=== PATIENT | female | born 1945 | race Hispanic/Latino ===

== ENCOUNTER 2017-01-10 18:23 | Inpatient (IN) | payer MEDICARE, MEDICAID ==
[2017-01-10] MEDS ORDERED: Sodium Chloride 0.9% 500 ML IV STA ×2 (18:43→20:19)
[2017-01-10] MEDS ORDERED: Morphine 4 mg/ml ISec IVP STA ×2 (18:43→20:18)
[2017-01-10] MEDS ORDERED: Morphine 2 mg/ml ISec IVP STA (18:50)
[2017-01-10 20:00] LABS: BASO # 0.03 K/mm3 (0.0-2.0); BASO % 0.2 % (0.0-3.0); EOS % 0.2 % (1.5-5.0); GRAN # 13.55 (1.4-6.5); GRAN % 81.6 % (50.0-68.0); HEMOGLOBIN 11.7 gm/dL (12.0-16.0); LYMPH # 1.4 (1.2-3.4); LYMPH % 8.2 % (22.0-35.0); MEAN CELL VOLUME 87.6 fL (80.0-105.0); MEAN CORPUSCULAR HGB CONC 33.1 g/dl (31.0-37.0); MEAN PLATELET VOLUME 10.8 fl (7.0-11.0); MONO # 1.6 (0.1-0.6); MONO % 9.8 % (1.0-6.0); PLATELET COUNT 525 10^3/uL (120.0-450.0); RBC 4.04 10^6/uL (3.5-6.1); RED CELL DISTRIBUTION WIDTH 17.7 % (11.5-14.5); WHITE BLOOD COUNT 16.6 10^3/ul (4.5-11.0)
[2017-01-10 20:08] LABS: ALB/GLOB RATIO 1.1 (1.1-1.8); ALBUMIN 3.9 g/dL (3.0-4.8); ALT/SGPT 21 U/L (7-56); AST/SGOT 23 U/L (15-39); BLOOD UREA NITROGEN 34 mg/dL (7-21); CALCIUM 9.4 mg/dL (8.4-10.5); GFR AFRICAN-AMERICAN > 60; GFR NON-AFRICAN AMERICAN > 60; LIPASE 69 U/L (23-300)
[2017-01-10 20:13] LABS: INR 1.06 (0.93-1.08); PARTIAL THROMBOPLASTIN TIME 29.7 Seconds (23.7-30.8); PROTHROMBIN TIME 11.5 Seconds (9.9-11.8)
[2017-01-10 20:19] LABS: B-TYPE NATRIURETIC PEPTIDE 716 pg/mL (0-450)
[2017-01-10 20:23] LABS: TROPONIN I < 0.01 ng/mL
[2017-01-10] MEDS ORDERED: Iohexol 350 MG/100 ML VIAL ONE (20:26)
--- NOTE | 2017-01-10 21:07 | ED PDOC ---
Arrival/HPI <Alexei Soto - Last Filed: 01/10/17 23:34> - General Historian: Patient - History of Present Illness Time/Duration: < week Context: Home <Gerson Caba - Last Filed: 01/19/17 23:10> - General Chief Complaint: Abdominal Pain Time Seen by Provider: 01/10/17 18:28 - History of Present Illness Narrative History of Present Illness (Text): 01/10/17 19:00 This 71 yo female, with pmh tobacco use, presents to this ED c/o epigastric pain x 5 days. Pain worsen x 2 days, which patient has not been able to tolerate not even water. Patient denies trauma, recent surgery, fever, trauma, sob, cp, rectal bleeding, or dizziness. (Gerson Caba) Past Medical History - Provider Review Nursing Documentation Reviewed: Yes - Cardiac Hx Cardiac Disorders: No - Pulmonary Hx Respiratory Disorders: Yes Hx Chronic Obstructive Pulmonary Disease (COPD): Yes - Neurological Hx Neurological Disorder: No - HEENT Hx HEENT Disorder: No - Renal Hx Renal Disorder: No - Endocrine/Metabolic Hx Endocrine Disorders: No - Hematological/Oncological Hx Blood Disorders: No - Integumentary Hx Dermatological Disorder: No - Musculoskeletal/Rheumatological Hx Musculoskeletal Disorders: No - Gastrointestinal Hx Gastrointestinal Disorders: No - Genitourinary/Gynecological Hx Genitourinary Disorders: No - Psychiatric Hx Psychophysiologic Disorder: No Hx Substance Use: No - Surgical History Hx Orthopedic Surgery: Yes <Gerson Caba - Last Filed: 01/19/17 23:10> Family/Social History - Physician Review Nursing Documentation Reviewed: Yes Family/Social History: No Known Family HX Smoking Status: Smoker Currrent Status Unknown Hx Alcohol Use: No Hx Substance Use: No <Gerson Caba - Last Filed: 01/19/17 23:10> Allergies/Home Meds <Alexei Soto - Last Filed: 01/10/17 23:34> <Gerson Caba - Last Filed: 01/19/17 23:10> Allergies/Adverse Reactions: Allergies ketorolac [From Toradol] Allergy (Severe, Verified 01/16/17 08:51) ANAPHYLAXIS Home Medications: Home Meds Medication Instructions Recorded Confirmed Albuterol HFA [Ventolin HFA 90 1 puff INH BID 01/10/17 01/16/17 mcg/actuation (8 g)] Budesonide/Formoterol Fumarate 1 puff INH BID 01/10/17 01/16/17 [Symbicort 160-4.5 Mcg Inhaler] Pregabalin [Lyrica] 150 mg PO BID 01/10/17 01/16/17 Ferrous Sulfate 65 mg PO BID 01/16/17 01/16/17 traMADol [Ultram] 50 mg PO DAILY 01/16/17 01/16/17 Review of Systems - Review of Systems Constitutional: Normal. absent: Fatigue, Weight Change, Fevers Eyes: Normal ENT: Normal Respiratory: Normal Cardiovascular: Normal Gastrointestinal: Abdominal Pain, Nausea, Vomiting Genitourinary Female: Normal Musculoskeletal: Normal Skin: Normal Neurological: Normal Endocrine: Normal Hemo/Lymphatic: Normal Psychiatric: Normal <Gerson Caba - Last Filed: 01/19/17 23:10> Physical Exam Temperature: Afebrile Blood Pressure: Normal Pulse: Regular Respiratory Rate: Normal Appearance: Positive for: Well-Appearing, Non-Toxic, Comfortable Pain Distress: None Mental Status: Positive for: Alert and Oriented X 3 - Systems Exam Head: Present: Atraumatic, Normocephalic Pupils: Present: PERRL Extroacular Muscles: Present: EOMI Mouth: Present: Moist Mucous Membranes Pharnyx: Present: Normal Respiratory/Chest: Present: Clear to Auscultation, Good Air Exchange. No: Respiratory Distress, Accessory Muscle Use Cardiovascular: Present: Regular Rate and Rhythm, Normal S1, S2. No: Murmurs Abdomen: Present: Tenderness (mid abdomen), Normal Bowel Sounds. No: Distention , Peritoneal Signs, Rebound, Guarding, McBurney's Point Tender, Hernias Upper Extremity: Present: Normal Inspection. No: Cyanosis, Edema Lower Extremity: Present: Normal Inspection. No: Edema Neurological: Present: GCS=15, CN II-XII Intact, Speech Normal, Motor Func Grossly Intact, Normal Sensory Function Psychiatric: Present: Alert, Oriented x 3, Normal Insight, Normal Concentration <Alexei Soto - Last Filed: 01/10/17 23:34> Medical Decision Making <Alexei Soto - Last Filed: 01/10/17 23:34> Re-evaluation Time: 23:30 Reassessment Condition: Re-examined, Improving,but remains with symptoms <Gerson Caba P - Last Filed: 01/19/17 23:10> ED Course and Treatment: 01/10/17 22:40 CT Abdomen and Pelvis: FINDINGS: Atelectasis/scarring at the lung bases. Approximately 4 mm nodular pleural- based focus in the right middle lobe. Additional spiculated region and in the right middle lobe, may be secondary to atelectasis/scarring, but followup dedicated imaging is recommended for further evaluation. The liver, spleen, pancreas and right adrenal gland demonstrate no acute abnormalities. No radiopaque gallstones visualized. 1.5 cm left adrenal nodule. The kidneys are symmetric with no evidence of hydronephrosis. Atherosclerosis. Evaluation of bowel limited by paucity of enteric contrast. Small hiatal hernia. The stomach is collapsed, limiting its evaluation, question thickening of the gastric wall. The duodenum is fluid-filled and dilated proximal to crossing between the SMA and aorta. The duodenal wall demonstrates edema and surrounding fluid. Postsurgical changes involving bowel in the pelvis. Fluid noted throughout bowel. Degenerative changes, most significant at L4-S1 including mild spondylolisthesis. Scoliosis. Streak artifact from left hip prosthesis. IMPRESSION: Duodenum is fluid-filled and dilated proximal to crossing between the SMA and aorta. The duodenal wall demonstrates edema and surrounding fluid. Additional details as above. Question enteritis. Cannot exclude underlying lesion. Further evaluation is recommended. 1.5 cm left adrenal nodule. Incompletely evaluated on this study. Followup imaging with dedicated protocol candidate evaluation. Approximately 4 mm nodular pleural-based focus in the right middle lobe. Additional spiculated region and in the right middle lobe, may be secondary to atelectasis/scarring, but followup dedicated imaging is recommended for further evaluation. Please see additional details/findings as above. Dictated and Authenticated by: Dang Dominique MD 01/10/17 23:23 Multiple calls placed to Dr. Peña, no call back. Case discussed with medical record clerk, who is aware and agrees with plan. House doctor paged. 01/10/17 23:[address] Smith, who is aware and agrees with plan. Accepts pt in to hospitalist service. Pt will be admitted to [facility] for abdominal pain and partial bowel obstruction. (Alexei Soto) 01/10/17 21:22 I spoke with residential supervisor regarding distended large bowel, concerning for bowel obstruction, pending ct abdomen pelvis (Gerson Caba) - Lab Interpretations Microbiology Results: Microbiology Results 01/10/17 22:40 Urine Urine Culture - Final Gram Positive Cocci Lab Results: 01/10/17 19:45 01/10/17 19:45 Lab Results 01/10/17 22:40: Urine Color yellow, Urine Appearance Clear, Urine pH 6.5, Ur Specific [place] <= 1.005, Urine Protein Trace H, Urine Glucose (UA) Negative, Urine Ketones Trace H, Urine Blood Negative, Urine Nitrate Negative, Urine Bilirubin Negative, Urine Urobilinogen 0.2, Ur Leukocyte Esterase Negative, Urine RBC TEST NOT PERFORMED, Urine WBC 2 - 5, Ur Epithelial Cells 10 - 12, Amorphous Sediment Trace 01/10/17 20:50: Lactic Acid 0.6 L 01/10/17 19:45: Sodium 130 L, Potassium 3.8, Chloride 99, Carbon Dioxide 19 L, Anion Gap 16, BUN 34 H, Creatinine 0.8, Est GFR ( Amer) > 60, Est GFR ( Non-Af Amer) > 60, Random Glucose 93, Calcium 9.4, Total Bilirubin 0.8, AST 23, ALT 21, Alkaline Phosphatase 91, Lactate Dehydrogenase 434, Total Creatine Kinase 21 L, Troponin I < 0.01, NT-Pro-B Natriuret Pep 716 H, Total Protein 7.3 , Albumin 3.9, Globulin 3.4, Albumin/Globulin Ratio 1.1, Lipase 69 01/10/17 19:45: PT 11.5, INR 1.06, APTT 29.7 01/10/17 19:45: WBC 16.6 H, RBC 4.04, Hgb 11.7 L, Hct 35.4 L, MCV 87.6, MCH 29.0 , MCHC 33.1, RDW 17.7 H, Plt Count 525 H, MPV 10.8, Gran % 81.6 H, Lymph % (Auto ) 8.2 L, [place] % (Auto) 9.8 H, Eos % (Auto) 0.2 L, Baso % (Auto) 0.2, Gran # 13.55 H, Lymph # 1.4, [place] # 1.6 H, Eos # 0.0, Baso # 0.03 - RAD Interpretation Radiology Orders: 01/10/17 18:43 CHEST PORTABLE [RAD] Stat 01/10/17 18:48 ABD & PELVIS IV CONTRAST ONLY [CT] Stat - Medication Orders Current Medication Orders: Discontinued Medications Albuterol/Ipratropium (Duoneb 3 Mg/0.5 Mg (3 Ml) Ud) 3 ml IH Q2 ORI Stop: 01/11/17 06:01 Albuterol/Ipratropium (Duoneb 3 Mg/0.5 Mg (3 Ml) Ud) 3 ml IH Q2 PRN PRN Reason: Shortness of Breath Stop: 01/11/17 06:01 Albuterol/Ipratropium (Duoneb 3 Mg/0.5 Mg (3 Ml) Ud) 3 ml IH [id number] PRN PRN Reason: Shortness of Breath Stop: 01/11/17 06:01 Last Admin: 01/11/17 01:38 Dose: 3 ml Albuterol/Ipratropium (Duoneb 3 Mg/0.5 Mg (3 Ml) Ud) 3 ml IH [id number] ONE Stop: 01/11/17 03:28 Last Admin: 01/11/17 03:47 Dose: 3 ml Barium Sulfate (E-Z-Paque) Confirm Administered Dose 352 g SD .STK-MED ONE Stop: 01/12/17 10:21 Famotidine (Pepcid) 20 mg IVP STAT STA Stop: 01/10/17 18:44 Last Admin: 01/10/17 19:29 Dose: 20 mg Gadodiamide ( Omniscan) Confirm Administered Dose 5,740 mg IV .STK-MED ONE Stop: 01/12/17 18:45 Gadodiamide ( Omniscan) Confirm Administered Dose 5,740 mg IV .STK-MED ONE Stop: 01/13/17 14:12 Home Med (Home Med) 1 unit INH BID ORI Last Admin: 01/14/17 09:56 Dose: 1 unit Home Med (Home Med) 1 unit INH STAT STA Stop: 01/11/17 03:42 Last Admin: 01/11/17 03:47 Dose: 1 unit Hydromorphone HCl (Dilaudid) 0.5 mg IVP Q4H PRN PRN Reason: Abdominal pain Last Admin: 01/14/17 12:13 Dose: 0.5 mg Re-Assess: PREETI Pain Assessment Document 01/14/17 13:13 JOSEPH (Rec: 01/14/17 13:38 JOSEPH [id number]) Pain Reassessment Is this a pain reassessment? Yes Sleep Is patient sleeping during reassessment? No Presence of Pain Presence of Pain No Sodium Chloride (Sodium Chloride 0.9%) 500 mls @ 1,000 mls/hr IV .Q30M STA Stop: 01/10/17 19:12 Last Admin: 01/10/17 19:30 Dose: 1,000 mls/hr Sodium Chloride (Sodium Chloride 0.9%) 500 mls @ 999 mls/hr IV .Q31M STA Stop: 01/10/17 20:49 Last Admin: 01/10/17 20:33 Dose: 999 mls/hr Sodium Chloride (Sodium Chloride 0.9%) 1,000 mls @ 999 mls/hr IV .Q1H1M STA Stop: 01/10/17 22:13 Last Admin: 01/10/17 23:24 Dose: 999 mls/hr Metronidazole (Flagyl) 500 mg in 100 mls @ 100 mls/hr IVPB STAT STA PRN Reason: Protocol Stop: 01/10/17 22:20 Last Admin: 01/10/17 23:24 Dose: 100 mls/hr Piperacillin Sod/Tazobactam Sod (Zosyn 3.375 In Ns 100ml) 100 mls @ 200 mls/hr IVPB STAT STA PRN Reason: Protocol Stop: 01/10/17 21:49 Last Admin: 01/11/17 00:07 Dose: 200 mls/hr Sodium Chloride (Sodium Chloride 0.9%) 1,000 mls @ 100 mls/hr IV .Q10H [facility] Last Admin: 01/11/17 09:31 Dose: 100 mls/hr Piperacillin Sod/Tazobactam Sod (Zosyn 3.375 In Ns 100ml) 100 mls @ 200 mls/hr IVPB Q6 ORI PRN Reason: Protocol Stop: 01/11/17 12:29 Last Admin: 01/11/17 11:45 Dose: 200 mls/hr Potassium Chloride (Potassium Chloride 10 Meq/100 Ml) 10 meq in 100 mls @ 100 mls/hr IVPB Q2H ORI Stop: 01/11/17 12:29 Last Admin: 01/11/17 14:32 Dose: 100 mls/hr Ceftriaxone Sodium (Rocephin 1 Gram Ivpb) 1 gm in 100 mls @ 100 mls/hr IVPB DAILY ORI PRN Reason: Protocol Last Admin: 01/14/17 09:15 Dose: 100 mls/hr Sodium Chloride (Sodium Chloride 0.9%) 1,000 mls @ 50 mls/hr IV .Q20H [facility] Last Admin: 01/12/17 13:34 Dose: 50 mls/hr Potassium Chloride (Potassium Chloride 20 Meq/100 Ml) 20 meq in 100 mls @ 50 mls/hr IVPB Q2H [facility] Stop: 01/12/17 11:59 Last Admin: 01/12/17 13:31 Dose: 50 mls/hr Comments: patiet just back from bowel series Iron Sucrose 100 mg/ Sodium (Chloride) 105 mls @ 210 mls/hr IVPB DAILY [facility] Stop: 01/16/17 10:17 Last Admin: 01/14/17 09:17 Dose: 210 mls/hr Potassium Chloride (Potassium Chloride 20 Meq/100 Ml) 20 meq in 100 mls @ 50 mls/hr IVPB Q2H [facility] Stop: 01/13/17 11:44 Last Admin: 01/13/17 14:29 Dose: 50 mls/hr Iohexol (Omnipaque 350 100 Ml) Confirm Administered Dose 350 mg .ROUTE .STK-MED ONE Stop: 01/10/17 20:27 Morphine Sulfate (Morphine) 2 mg IVP STAT STA Stop: 01/10/17 18:51 Last Admin: 01/10/17 19:30 Dose: 2 mg Morphine Sulfate (Morphine) 4 mg IVP STAT STA Stop: 01/10/17 20:19 Last Admin: 01/10/17 20:34 Dose: 4 mg Ondansetron HCl (Zofran Inj) 4 mg IVP STAT STA Stop: 01/10/17 18:47 Last Admin: 01/10/17 19:29 Dose: 4 mg Ondansetron HCl (Zofran Inj) 4 mg IVP STAT PRN PRN Reason: Nausea/Vomiting Ondansetron HCl (Zofran Inj) 4 mg IVP Q4 PRN PRN Reason: Nausea/Vomiting Stop: 01/11/17 04:01 Ondansetron HCl (Zofran Inj) 4 mg IVP Q4H PRN PRN Reason: Nausea/Vomiting Pantoprazole Sodium (Protonix Inj) 40 mg IVP DAILY [facility] Last Admin: 01/14/17 09:15 Dose: 40 mg Potassium Chloride (K-Dur 20 Meq Er Tab) 40 meq PO ONCE ONE Stop: 01/13/17 13:56 Last Admin: 01/13/17 16:29 Dose: 40 meq Potassium Chloride (K-Dur 20 Meq Er Tab) 20 meq PO ONCE ONE Stop: 01/14/17 13:11 Last Admin: 01/14/17 13:40 Dose: 20 meq Pregabalin (Lyrica) 150 mg PO BID ORI Last Admin: 01/14/17 09:15 Dose: 150 mg Pregabalin (Lyrica) 150 mg PO STAT STA Stop: 01/11/17 03:33 Last Admin: 01/11/17 03:46 Dose: 150 mg - PA / DOCUMENT CONTROL COORDINATOR / Resident Statement JULIETTE has reviewed & agrees with the documentation as recorded. JULIETTE has examined the patient and agrees with the treatment plan. <Alexei Soto - Last Filed: 01/10/17 23:34> Disposition/Present on Arrival - Present on Arrival Any Indicators Present on Arrival: No History of DVT/PE: No History of Uncontrolled Diabetes: No Urinary Catheter: No History of Decub. Ulcer: No History Surgical Site Infection Following: None - Disposition Have Diagnosis and Disposition been Completed?: Yes Disposition Time: 23:33 Patient Plan: Admission <Alexei Soto - Last Filed: 01/10/17 23:34> - Present on Arrival Any Indicators Present on Arrival: No History of DVT/PE: No History of Uncontrolled Diabetes: No Urinary Catheter: No History of Decub. Ulcer: No History Surgical Site Infection Following: None - Disposition Have Diagnosis and Disposition been Completed?: Yes Patient Plan: Admission <Gerson Caba - Last Filed: 01/19/17 23:10> - Disposition Diagnosis: Abdominal pain, Vomiting, Partial bowel obstruction Disposition: HOSPITALIZED Condition: STABLE
[2017-01-10] MEDS ORDERED: Sodium Chloride 0.9% 1,000 ML IV STA (21:13)
[2017-01-10] MEDS ORDERED: Piperacillin/Tazobact 3.375 gm 100 ML IVPB STA (21:20)
[2017-01-10] MEDS ORDERED: metroNIDAZOLE IV 500 mg/100 ml 500 MG/100 ML BAG IVPB STA (21:21)
--- NOTE | 2017-01-10 22:29 | CP.PCM.CON ---
History of Present Illness - History of Present Illness History of Present Illness: SURGERY CONSULT NOTE FOR DR. GARCIA 71F presents with abdominal pain that began on Thursday suddenly. She states she was not doing anything in particular when the pain started. Patient states pain as been continuous but increased in intensity as the days went by. She states she has not been having an appetite since the pain began and feels nausea when she attempts to eat/drink. Admits to 3 bouts of vomiting yesterday which contained but the liquids she drank. Non bilious non bloody. She denies change in bowel movement. Denies subjective fevers or diaphoresis. She has never had this type of pain before. PMH: COPD PSH: left hip replacement, ankle surgery Social: admits to tobacco abuse, denies alcohol and illicit drug use Allergies: Toradol Past Patient History - Past Social History Smoking Status: Smoker Currrent Status Unknown - CARDIAC Hx Cardiac Disorders: No - PULMONARY Hx Respiratory Disorders: Yes Hx Chronic Obstructive Pulmonary Disease (COPD): Yes - NEUROLOGICAL Hx Neurological Disorder: No - HEENT Hx HEENT Problems: No - RENAL Hx Chronic Kidney Disease: No - ENDOCRINE/METABOLIC Hx Endocrine Disorders: No - HEMATOLOGICAL/ONCOLOGICAL Hx Blood Disorders: No - INTEGUMENTARY Hx Dermatological Problems: No - MUSCULOSKELETAL/RHEUMATOLOGICAL Hx Musculoskeletal Disorders: No - GASTROINTESTINAL Hx Gastrointestinal Disorders: No - GENITOURINARY/GYNECOLOGICAL Hx Genitourinary Disorders: No - PSYCHIATRIC Hx Psychophysiologic Disorder: No Hx Substance Use: No - SURGICAL HISTORY Hx Orthopedic Surgery: Yes Meds Allergies/Adverse Reactions: Allergies Allergy/AdvReac Type Severity Reaction Status Date / Time ketorolac [From Toradol] Allergy ANAPHYLAXIS Verified 01/10/17 18:33 Physical Exam - Constitutional Appears: Non-toxic, No Acute Distress - Head Exam Head Exam: ATRAUMATIC - Eye Exam Eye Exam: EOMI, PERRL - ENT Exam ENT Exam: Mucous Membranes Moist - Respiratory Exam Respiratory Exam: Clear to Auscultation Bilateral, NORMAL BREATHING PATTERN - Cardiovascular Exam Cardiovascular Exam: REGULAR RHYTHM, +S1, +S2 - GI/Abdominal Exam GI & Abdominal Exam: Soft, Tenderness (mild tenderness in periumbilical region) . absent: Distended, Firm, Guarding, Rebound, Rigid - Extremities Exam Extremities exam: Negative for: pedal edema, tenderness - Neurological Exam Neurological exam: Alert, Oriented x3 - Psychiatric Exam Psychiatric exam: Normal Affect, Normal Mood - Skin Skin Exam: Dry, Intact, Normal Color, Warm Results - Vital Signs Recent Vital Signs: Last Vital Signs Temp 97.8 F 01/10/17 20:30 Pulse 170 H 01/10/17 20:30 Resp 22 01/10/17 20:30 BP 111/67 01/10/17 20:30 Pulse Ox 98 01/10/17 20:30 - Labs Result Diagrams: 01/11/17 07:00 01/11/17 07:00 Labs: Laboratory Results - last 24 hr 01/10/17 01/10/17 01/10/17 19:45 19:45 19:45 WBC 16.6 H RBC 4.04 Hgb 11.7 L Hct 35.4 L MCV 87.6 MCH 29.0 MCHC 33.1 RDW 17.7 H Plt Count 525 H MPV 10.8 Gran % 81.6 H Lymph % (Auto) 8.2 L [place] % (Auto) 9.8 H Eos % (Auto) 0.2 L Baso % (Auto) 0.2 Gran # 13.55 H Lymph # 1.4 [place] # 1.6 H Eos # 0.0 Baso # 0.03 PT 11.5 INR 1.06 APTT 29.7 Sodium 130 L Potassium 3.8 Chloride 99 Carbon Dioxide 19 L Anion Gap 16 BUN 34 H Creatinine 0.8 Est GFR ( Amer) > 60 Est GFR (Non-Af Amer) > 60 Random Glucose 93 Lactic Acid Calcium 9.4 Total Bilirubin 0.8 AST 23 ALT 21 Alkaline Phosphatase 91 Lactate Dehydrogenase 434 Total Creatine Kinase 21 L Troponin I < 0.01 NT-Pro-B Natriuret Pep 716 H Total Protein 7.3 Albumin 3.9 Globulin 3.4 Albumin/Globulin Ratio 1.1 Lipase 69 01/10/17 20:50 WBC RBC Hgb Hct MCV MCH MCHC RDW Plt Count MPV Gran % Lymph % (Auto) [place] % (Auto) Eos % (Auto) Baso % (Auto) Gran # Lymph # [place] # Eos # Baso # PT INR APTT Sodium Potassium Chloride Carbon Dioxide Anion Gap BUN Creatinine Est GFR ( Amer) Est GFR (Non-Af Amer) Random Glucose Lactic Acid 0.6 L Calcium Total Bilirubin AST ALT Alkaline Phosphatase Lactate Dehydrogenase Total Creatine Kinase Troponin I NT-Pro-B Natriuret Pep Total Protein Albumin Globulin Albumin/Globulin Ratio Lipase Assessment & Plan - Assessment and Plan (Free Text) Assessment: 71F with abdominal pain 2/2 poss SMA syndrome? CT: fluid filled duodenum, dilated duodenum proximal to Aortic/SMA junction Plan: - NPO, pain control, anti-emetic - Antibiotics, IVF - UGI series, Abd US duplex - GI consult, rec EGD, colonscopy Further recs discuss with Attending Ger Cerda, PGY2
--- NOTE | 2017-01-10 22:34 | CT ---
EXAM: CT Abdomen and Pelvis With Intravenous Contrast CLINICAL HISTORY: 71 years old, female; Pain; Abdominal pain; Epigastric; Patient HX: Epigastric pain TECHNIQUE: Axial computed tomography images of the abdomen and pelvis with intravenous contrast. This CT exam was performed using one or more of the following dose reduction techniques: automated exposure control, adjustment of the mA and/or kV according to patient size, and/or use of iterative reconstruction technique. Coronal and sagittal reformatted images were created and reviewed. CONTRAST: 95 mL of OMNIPAQUE 350 administered intravenously. COMPARISON: No relevant prior studies available. FINDINGS: Atelectasis/scarring at the lung bases. Approximately 4 mm nodular pleural-based focus in the right middle lobe. Additional spiculated region and in the right middle lobe, may be secondary to atelectasis/scarring, but followup dedicated imaging is recommended for further evaluation. The liver, spleen, pancreas and right adrenal gland demonstrate no acute abnormalities. No radiopaque gallstones visualized. 1.5 cm left adrenal nodule. The kidneys are symmetric with no evidence of hydronephrosis. Atherosclerosis. Evaluation of bowel limited by paucity of enteric contrast. Small hiatal hernia. The stomach is collapsed, limiting its evaluation, question thickening of the gastric wall. The duodenum is fluid-filled and dilated proximal to crossing between the SMA and aorta. The duodenal wall demonstrates edema and surrounding fluid. Postsurgical changes involving bowel in the pelvis. Fluid noted throughout bowel. Degenerative changes, most significant at L4-S1 including mild spondylolisthesis. Scoliosis. Streak artifact from left hip prosthesis. IMPRESSION: Duodenum is fluid-filled and dilated proximal to crossing between the SMA and aorta. The duodenal wall demonstrates edema and surrounding fluid. Additional details as above. Question enteritis. Cannot exclude underlying lesion. Further evaluation is recommended. 1.5 cm left adrenal nodule. Incompletely evaluated on this study. Followup imaging with dedicated protocol candidate evaluation. Approximately 4 mm nodular pleural-based focus in the right middle lobe. Additional spiculated region and in the right middle lobe, may be secondary to atelectasis/scarring, but followup dedicated imaging is recommended for further evaluation. Please see additional details/findings as above.
[2017-01-10 22:56] LABS: PH,URINE 6.5 (4.7-8.0); URINE BILIRUBIN NEGATIVE (NEGATIVE); URINE BLOOD NEGATIVE (NEGATIVE); URINE GLUCOSE (UA) NEGATIVE (NEGATIVE); URINE LEUKOCYTE ESTERASE NEGATIVE Leu/uL (NEGATIVE); URINE NITRATE NEGATIVE (NEGATIVE); URINE PROTEIN TRACE mg/dL (<30 mg/dL); URINE UROBILINOGEN 0.2 E.U./dL (<1 E.U./dL)
[2017-01-10 22:58] LABS: URINE AMORPHOUS SEDIMENT TRACE; URINE APPEARANCE CLEAR (CLEAR)
[2017-01-11] MEDS: HYDROmorphone 0.5 mg/0.5 ml ISec IVP PRN ×5 (00:47→20:52)
[2017-01-11] MEDS: Sodium Chloride 0.9% 1,000 ML IV SCH ×3 (00:48→17:56)
[2017-01-11 01:03] VITALS: BMI 17.6
[2017-01-11] MEDS ORDERED: Albuterol-Ipratrop 3 mg / 0.5 (3 ml) UD IH PRN ×2 (01:32)
[2017-01-11] MEDS ORDERED: Albuterol-Ipratrop 3 mg / 0.5 (3 ml) UD IH SCH (02:00)
[2017-01-11] MEDS ORDERED: Albuterol-Ipratrop 3 mg / 0.5 (3 ml) UD IH ONE (03:27)
[2017-01-11] MEDS ORDERED: Home Med 1 UNIT INH STA (03:37)
[2017-01-11] MEDS ORDERED: SYMBICORT INH STA (03:41)
[2017-01-11] MEDS: Piperacillin/Tazobact 3.375 gm 100 ML IVPB SCH ×2 (05:18→11:45)
--- NOTE | 2017-01-11 05:59 | CP.PCM.HP ---
<NU MARIA - Last Filed: 01/11/17 06:17> History of Present Illness - History of Present Illness History of Present Illness: Nu Maria DO PGY1 - Internal Medicine Progress Note - Night Float CC: Abdominal pain HPI: 71 Yo F with PMH of COPD and TIA presents [place] [facility] complaining of abdominal pain for the past 5 days, significantly worse since yesterday, now 10/ 10 in severity. Pain is constant, sharp and stabbing in character, nonradiating , associated with nausea, vomiting once yesterday, anorexia for the past three days. She tried advil for the pain, which did not help. She also admits one episode of black diarrhea which she noted on her bed upon waking up two days ago. She denies any prior hematochezia, hematemesis, or melena. She denies CP, SOB, cough, F/C, constipation. She admits to 46 lbs unintentional weight loss in the past year. Of note, she reportedly had a colonoscopy one year ago for abdominal pain, and it was negative for any lesions, as per patient. PMH: COPD, TIA PSH: R ankle ORIF, L hip replacement, Appendectomy in childhood Meds: Reviewed Soc: Tobacco, smoked 1-2 cigarettes daily for the past 52 years, denies EtOH, denies illicits FHx: None Allergies: Toradol Present on Admission - Present on Admission Any Indicators Present on Admission: No Review of Systems - Constitutional Constitutional: Anorexia, Weight Loss - EENT Eyes: absent: Blurred Vision, Change in Vision Ears: absent: Decreased Hearing, Ear Pain Nose/Mouth/Throat: absent: Epistaxis, Nasal Congestion - Cardiovascular Cardiovascular: absent: Chest Pain, Edema, Palpitations - Respiratory Respiratory: absent: Cough, Dyspnea, Hemoptysis - Gastrointestinal Gastrointestinal: As Per HPI - Genitourinary Genitourinary: absent: Dysuria, Urinary Frequency - Musculoskeletal Musculoskeletal: absent: Arthralgias, Myalgias - Integumentary Integumentary: absent: Rash - Neurological Neurological: absent: Abnormal Speech, Behavioral Changes, Burning Sensations - Hematologic/Lymphatic Hematologic: absent: Easy Bleeding, Easy Bruising Past Patient History - Past Social History Smoking Status: Current Some Days Smoker - CARDIAC Hx Cardiac Disorders: No - PULMONARY Hx Respiratory Disorders: Yes Hx Chronic Obstructive Pulmonary Disease (COPD): Yes - NEUROLOGICAL Hx Neurological Disorder: Yes Hx Transient Ischemic Attacks (TIA): Yes - HEENT Hx HEENT Problems: No - RENAL Hx Chronic Kidney Disease: No - ENDOCRINE/METABOLIC Hx Endocrine Disorders: No - HEMATOLOGICAL/ONCOLOGICAL Hx Blood Disorders: No - INTEGUMENTARY Hx Dermatological Problems: No - MUSCULOSKELETAL/RHEUMATOLOGICAL Hx Musculoskeletal Disorders: Yes Hx Fractures: Yes (left hip, right ankle) Hx Unsteady Gait: Yes - GASTROINTESTINAL Hx Gastrointestinal Disorders: No - GENITOURINARY/GYNECOLOGICAL Hx Genitourinary Disorders: No - PSYCHIATRIC Hx Psychophysiologic Disorder: No - SURGICAL HISTORY Hx Surgeries: Yes Hx Orthopedic Surgery: Yes (right ankle repair, left hip orif with hardware) Meds Allergies/Adverse Reactions: Allergies Allergy/AdvReac Type Severity Reaction Status Date / Time ketorolac [From Toradol] Allergy Severe ANAPHYLAXIS Verified 01/16/17 08:51 Physical Exam - Constitutional Appears: Non-toxic, No Acute Distress - Head Exam Head Exam: ATRAUMATIC, NORMOCEPHALIC - Eye Exam Eye Exam: EOMI, Normal appearance - ENT Exam ENT Exam: Mucous Membranes Moist - Neck Exam Neck exam: Positive for: Normal Inspection. Negative for: Lymphadenopathy, Meningismus - Respiratory Exam Respiratory Exam: Clear to Auscultation Bilateral. absent: Rales, Rhonchi, Wheezes - Cardiovascular Exam Cardiovascular Exam: RRR, +S1, +S2 - GI/Abdominal Exam GI & Abdominal Exam: Diminished Bowel Sounds, Guarding (epigastric), Rebound ( epigastric), Tenderness (epigastric) - Extremities Exam Extremities exam: Positive for: normal inspection. Negative for: pedal edema, tenderness - Back Exam Back exam: NORMAL INSPECTION - Neurological Exam Neurological exam: Alert, Oriented x3 - Psychiatric Exam Psychiatric exam: Normal Affect, Normal Mood - Skin Skin Exam: Dry, Intact Results - Vital Signs Recent Vital Signs: Last Vital Signs Temp 98.1 F 01/11/17 00:52 Pulse 74 01/11/17 01:39 Resp 18 01/11/17 00:52 BP 116/61 01/11/17 00:52 Pulse Ox 98 01/11/17 00:45 - Labs Result Diagrams: 01/10/17 19:45 01/10/17 19:45 Assessment & Plan - Assessment and Plan (Free Text) Assessment: 71 Yo F with PMH of COPD and TIA presents to [facility] complaining of abdominal pain for the past 5 days, significantly worse since yesterday, now 10/[address] significant for duodenitis vs SMA syndrome Plan: 1. Abdominal pain - 2/2 duodenitis vs SMA syndrome vs intraabdominal infection - CT abdomen and pelvis significant for fluid-filled and dilated duodenum proximal to crossing between the SMA and aorta, with edema in the johnson and surrounding fluid, cannot exclude underlying lesion - Consult surgery (Alexi), will keep NPO except meds until further evaluation - Consult GI (Zelinski) - Start dilaudid 0.5mg Q4H PRN for pain - Start Zosyn for presumed intraabdominal infection - Start Zofran PRN for nausea - Start NS @ 100ml/hr - Recheck CBC, CMP in AM 2. Hx COPD - Resume home meds GI and DVT ppx - Protonix 40mg IVP, SCD Patient seen, reviewed, and discussed with senior resident Dr. Oseguera PGY2 and attending Dr. Smith <Zahira Smith - Last Filed: 01/17/17 03:52> Results - Vital Signs Recent Vital Signs: Last Vital Signs Temp 98.5 F 01/14/17 06:00 Pulse 85 01/14/17 06:00 Resp 18 01/14/17 06:00 BP 136/63 01/14/17 06:00 Pulse Ox 94 L 01/14/17 06:00 - Labs Result Diagrams: 01/14/17 06:15 01/14/17 06:15 Attending/Attestation - Attestation I have personally seen and examined this patient.: Yes I have fully participated in the care of the patient.: Yes I have reviewed all pertinent clinical information: Yes Notes (Text): 01/17/17 03:51 Agree with history , physical examination , assessment and plan.
[2017-01-11 08:09] LABS: ALB/GLOB RATIO 1.1 (1.1-1.8); ALBUMIN 3.6 g/dL (3.0-4.8); ALT/SGPT 18 U/L (7-56); AST/SGOT 18 U/L (15-39); BLOOD UREA NITROGEN 25 mg/dL (7-21); CALCIUM 8.5 mg/dL (8.4-10.5); GFR AFRICAN-AMERICAN > 60; GFR NON-AFRICAN AMERICAN > 60
[2017-01-11 08:19] LABS: BASO # 0.04 K/mm3 (0.0-2.0); BASO % 0.3 % (0.0-3.0); EOS % 0.2 % (1.5-5.0); GRAN # 10.83 (1.4-6.5); GRAN % 81.3 % (50.0-68.0); HEMOGLOBIN 9.8 gm/dL (12.0-16.0); LYMPH # 1.4 (1.2-3.4); LYMPH % 10.2 % (22.0-35.0); MEAN CELL VOLUME 90.9 fL (80.0-105.0); MEAN CORPUSCULAR HEMOGLOBIN 28.7 pg (25.0-35.0); MEAN CORPUSCULAR HGB CONC 31.5 g/dl (31.0-37.0); MEAN PLATELET VOLUME 10.4 fl (7.0-11.0); MONO # 1.1 (0.1-0.6); PLATELET COUNT 524 10^3/uL (120.0-450.0); RBC 3.42 10^6/uL (3.5-6.1); RED CELL DISTRIBUTION WIDTH 18.3 % (11.5-14.5); WHITE BLOOD COUNT 13.3 10^3/ul (4.5-11.0)
--- NOTE | 2017-01-11 08:24 | CP.PCM.PN ---
Subjective - Date & Time of Evaluation Date of Evaluation: 01/11/17 Time of Evaluation: 06:30 - Subjective Subjective: General Surgery Dr. Barrios Pt S&E @bedside. NAEO. sitting up in bed. denies abd pain, N/V, F/C. pt requesting to shower. pt wants to go home. Objective - Vital Signs/Intake and Output Vital Signs (last 24 hours): Temp Pulse Resp BP Pulse Ox 97.7 F 70 18 117/61 97 01/11/17 07:55 01/11/17 07:55 01/11/17 07:55 01/11/17 07:55 01/11/17 07:55 Intake and Output: 01/11/17 01/11/17 06:59 18:59 Intake Total 800 0 Balance 800 0 - Medications Medications: Current Medications Home Med (Home Med) 1 unit INH BID [facility] Hydromorphone HCl (Dilaudid) 0.5 mg IVP Q4H PRN PRN Reason: Abdominal pain Last Admin: 01/11/17 05:30 Dose: 0.5 mg Sodium Chloride (Sodium Chloride 0.9%) 1,000 mls @ 100 mls/hr IV .Q10H [facility] Last Admin: 01/11/17 00:48 Dose: 100 mls/hr Piperacillin Sod/Tazobactam Sod (Zosyn 3.375 In Ns 100ml) 100 mls @ 200 mls/hr IVPB Q6 [facility] PRN Reason: Protocol Stop: 01/11/17 12:29 Last Admin: 01/11/17 05:18 Dose: 200 mls/hr Pantoprazole Sodium (Protonix Inj) 40 mg IVP DAILY [facility] Pregabalin (Lyrica) 150 mg PO BID [facility] - Labs Labs: PT 11.5 Seconds (9.9-11.8) 01/10/17 19:45 INR 1.06 (0.93-1.08) 01/10/17 19:45 APTT 29.7 Seconds (23.7-30.8) 01/10/17 19:45 - Constitutional Appears: Non-toxic, In Acute Distress - Head Exam Head Exam: NORMAL INSPECTION - Eye Exam Eye Exam: Normal appearance - ENT Exam ENT Exam: Mucous Membranes Moist - Respiratory Exam Respiratory Exam: NORMAL BREATHING PATTERN. absent: Accessory Muscle Use, Respiratory Distress - Cardiovascular Exam Cardiovascular Exam: absent: Bradycardia, Tachycardia - GI/Abdominal Exam GI & Abdominal Exam: Soft. absent: Distended, Tenderness - Extremities Exam Extremities Exam: Normal Inspection - Neurological Exam Neurological Exam: Alert, Awake, Oriented x3 - Psychiatric Exam Psychiatric exam: Normal Affect, Normal Mood - Skin Skin Exam: Dry, Intact, Normal Color, Warm Assessment and Plan - Assessment and Plan (Free Text) Assessment: 71 y/o F w/ abd pain - possible SMA syndrome - recommend Barium swallow vs Abd duplex US - pain management - f/u GI recs Pt discussed w/ Dr. Alexi Castañeda DO PGY2
[2017-01-11] MEDS: SYMBICORT INH SCH ×2 (10:19→17:53)
--- NOTE | 2017-01-11 10:26 | CARD ---
APPROVED REPORT EKG Measurement Heart [id number] <Conclusion> Atrial flutter with variable AV block Minimal voltage criteria for LVH, may be normal variant Nonspecific ST and T wave abnormality Abnormal ECG
--- NOTE | 2017-01-11 13:32 | RAD ---
HISTORY: epigastric pain COMPARISON: Comparison chest dated 12/04/2016 correlation also made with CT scan abdomen pelvis performed 01/10/2017 which imaged the lung bases in 3 planes FINDINGS: LUNGS: Mild hyperinflation; rule out underlying out changes of chronic emphysema or COPD. No focal consolidation. . Subpleural nodule right middle lobe poorly delineated on this study as compared to high-resolution CT scan PLEURA: Biapical pleural thickening associated with what appear to represent some minor dystrophic type calcifications. No pneumothorax apparent. CARDIOVASCULAR: Heart size normal. OSSEOUS STRUCTURES: There is a dextroscoliosis centered in the lower thoracic region compensatory for a levoscoliosis in the lumbar region. VISUALIZED UPPER ABDOMEN: Normal. OTHER FINDINGS: None. IMPRESSION: Hyperinflation. Rule out chronic changes of emphysema or COPD. Biapical pleural thickening associated with the some dystrophic type calcifications.
--- NOTE | 2017-01-11 15:24 | CON ---
DATE: 01/11/2017 HISTORY OF PRESENT ILLNESS: I examined Ms. Spencer this morning. She is a 71-year-old white female with past medical history of COPD, TIA presented with acute onset of abdominal pain roughly 5 days ago, which increase in intensity over the past several days. The patient denies hematemesis or rectal bleeding. Pain is constant. It can be associated with nausea and vomiting periodically. She did notice an episode of diarrhea for roughly a day or so several days ago. This has not recurred. The patient denied upper respiratory infections or viral or fluid type of illness. She has not had any recent GI surgery. Surgery in the past included ankle, as well as hip, and appendectomy. PHYSICAL EXAMINATION VITAL SIGNS: I reviewed this patient's vital signs. HEENT: Signification for dry mouth. LUNGS: Decreased breath sounds bilaterally. HEART: Regular rhythm. ABDOMEN: Mildly distended. She is tender in epigastric area. Periumbilical area feels very full and degree of pain elicited roughly 7-8/10. There is minimal discomfort in the left lower quadrant, as well as right lower quadrant. LABORATORY DATA: I reviewed this patient's laboratory data. White count 16,000 yesterday with an H and H of 11 and 35. Chemistry indicates a BNP of 716. BUN and creatinine of 34/0.8. I reviewed the CT report as well as CT images. Findings indicate abnormality in the lung. There is a small hiatal hernia. An obstruction is noted in the area of the small bowel. ASSESSMENT AND PLAN: This is a 71-year-old white female with complaints of abdominal pain. At least based on CT criteria probably secondary to small bowel obstructions, possibly adhesion related. I think it would be kind of unlikely to have inflammatory bowel presentation at 71 with this type of picture although possible. At this point in time, we suggest serial imaging to clarify decompression of the small bowel obstruction followed by surgery is recommended. At the current time point, the patient is on analgesics, as well as antibiotic therapy, metronidazole. I think this is adequate at the current time. She will be followed up by the hospitalist as well as house staff this morning. Clarification of this picture as well as the reason for the elevated BNP is pending. Abad Malave DO, PhD SHARA
[2017-01-11] MEDS: cefTRIAXone 1 gm 1 GM/100 ML BAG IVPB SCH (17:59)
[2017-01-12] MEDS: HYDROmorphone 0.5 mg/0.5 ml ISec IVP PRN ×5 (01:07→19:37)
[2017-01-12 07:14] LABS: ALB/GLOB RATIO 1.1 (1.1-1.8); ALBUMIN 2.9 g/dL (3.0-4.8); ALT/SGPT 18 U/L (7-56); AST/SGOT 19 U/L (15-39); BLOOD UREA NITROGEN 14 mg/dL (7-21); CALCIUM 8.1 mg/dL (8.4-10.5); GFR AFRICAN-AMERICAN > 60; GFR NON-AFRICAN AMERICAN > 60
[2017-01-12 07:32] LABS: BASO # 0.07 K/mm3 (0.0-2.0); BASO % 0.9 % (0.0-3.0); EOS # 0.3 (0.0-0.7); EOS % 3.4 % (1.5-5.0); GRAN # 5.29 (1.4-6.5); GRAN % 69.6 % (50.0-68.0); LYMPH # 1.1 (1.2-3.4); LYMPH % 13.9 % (22.0-35.0); MEAN CORPUSCULAR HEMOGLOBIN 28.6 pg (25.0-35.0); MEAN CORPUSCULAR HGB CONC 31.4 g/dl (31.0-37.0); MEAN PLATELET VOLUME 10.2 fl (7.0-11.0); MONO # 0.9 (0.1-0.6); MONO % 12.2 % (1.0-6.0); PLATELET COUNT 457 10^3/uL (120.0-450.0); RBC 2.66 10^6/uL (3.5-6.1); RED CELL DISTRIBUTION WIDTH 18.2 % (11.5-14.5); WHITE BLOOD COUNT 7.6 10^3/ul (4.5-11.0)
[2017-01-12 07:40] LABS: HEMOGLOBIN 7.6 gm/dL (12.0-16.0)
[2017-01-12] MEDS ORDERED: Ferric Sodium Gluconat Complex 62.5 mg/5 ml Vial IVPB SCH (10:00)
--- NOTE | 2017-01-12 10:09 | CP.PCM.PN ---
Subjective - Date & Time of Evaluation Date of Evaluation: 01/12/17 Time of Evaluation: 10:05 - Subjective Subjective: General Surgery Progress Note Resident: Tyra Attending: Alexi ALFONSO Patient was seen and examined at bedside. Doing well, no complaints at this time. -Flatus. +Liquid BM with no blood. Tolerating diet. -N/V/CP/SOB. Objective - Vital Signs/Intake and Output Vital Signs (last 24 hours): Temp Pulse Resp BP Pulse Ox 98 F 63 20 122/60 100 01/12/17 08:47 01/12/17 08:47 01/12/17 08:47 01/12/17 08:47 01/12/17 08:47 Intake and Output: 01/12/17 01/12/17 06:59 18:59 Intake Total 360 Balance 360 - Medications Medications: Current Medications Ferric Sodium Gluconate Complex (Ferrlecit) 125 mg IVPB DAILY [facility] Stop: 01/20/17 10:01 Home Med (Home Med) 1 unit INH BID [facility] Last Admin: 01/11/17 17:53 Dose: 1 unit Hydromorphone HCl (Dilaudid) 0.5 mg IVP Q4H PRN PRN Reason: Abdominal pain Last Admin: 01/12/17 08:57 Dose: 0.5 mg Ceftriaxone Sodium (Rocephin 1 Gram Ivpb) 1 gm in 100 mls @ 100 mls/hr IVPB DAILY [facility] PRN Reason: Protocol Last Admin: 01/11/17 17:59 Dose: 100 mls/hr Sodium Chloride (Sodium Chloride 0.9%) 1,000 mls @ 50 mls/hr IV .Q20H [facility] Last Admin: 01/11/17 17:56 Dose: 50 mls/hr Potassium Chloride (Potassium Chloride 20 Meq/100 Ml) 20 meq in 100 mls @ 50 mls/hr IVPB Q2H [facility] Stop: 01/12/17 11:59 Last Admin: 01/12/17 08:56 Dose: 50 mls/hr Ondansetron HCl (Zofran Inj) 4 mg IVP Q4H PRN PRN Reason: Nausea/Vomiting Pantoprazole Sodium (Protonix Inj) 40 mg IVP DAILY [facility] Last Admin: 01/11/17 09:27 Dose: 40 mg Pregabalin (Lyrica) 150 mg PO BID [facility] Last Admin: 01/11/17 17:53 Dose: 150 mg - Labs Labs: 01/12/17 06:00 01/12/17 06:00 PT 11.5 Seconds (9.9-11.8) 01/10/17 19:45 INR 1.06 (0.93-1.08) 01/10/17 19:45 APTT 29.7 Seconds (23.7-30.8) 01/10/17 19:45 - Constitutional Appears: No Acute Distress - Head Exam Head Exam: NORMAL INSPECTION - Eye Exam Eye Exam: EOMI, Normal appearance - ENT Exam ENT Exam: Mucous Membranes Moist - Respiratory Exam Respiratory Exam: Clear to Ausculation Bilateral - Cardiovascular Exam Cardiovascular Exam: REGULAR RHYTHM - GI/Abdominal Exam GI & Abdominal Exam: Soft. absent: Distended, Tenderness - Neurological Exam Neurological Exam: Alert, Awake Assessment and Plan - Assessment and Plan (Free Text) Assessment: 71 y/o WF with possible SMA Syndrome. * IV Iron for Anemia * Upper GI series today * Abdominal Duplex US today * Pain: Dilaudid * IVF: NS @ 50 * Antibiotics per medicine * Will discuss with Dr. Alexi Mary DO PGY-1
[2017-01-12] MEDS ORDERED: Barium Sulfate for Susp 96% w/w 176g Bottle PR ONE (10:20)
--- NOTE | 2017-01-12 11:20 | US ---
PROCEDURE: Duplex ultrasound of the mesenteric arteries. HISTORY: Abdominal pain. Evaluate for mesenteric ischemia. PHYSICIAN(S): Saman Murillo MD. TECHNIQUE: Duplex sonography with color-flow Doppler was used to evaluate limited segments of the abdominal aorta and proximal segments of the mesenteric arteries. FINDINGS: There appears to be a common origin to the celiac axis and SMA. Velocities at the celiac origin are borderline elevated, 223 cm/second. Velocities at the SMA origin are elevated, 3 in 25 cm/second. This is consistent with 50-99 percent proximal SMA stenosis. The VALORIE origin is patent with relatively normal velocities. IMPRESSION: 1. 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 2. Borderline elevation of the proximal celiac axis. 3. Patent VALORIE. 4. If clinical symptoms warrant, further evaluation with CTA, MRA, or conventional arteriography can be considered.
--- NOTE | 2017-01-12 13:31 | RAD ---
PROCEDURE: Upper GI and small bowel HISTORY: duodenal dilation, r/o SMA syndrome COMPARISON: TECHNIQUE: Single contrast FINDINGS: The esophagus and stomach are unremarkable. The duodenal bulb is normal in size. There is moderate dilatation of the 2nd and 3rd part of the duodenum measuring up to a 5.9 cm in diameter. There is some narrowing in the area of the ligament of Treitz. There is no obstruction to flow. The proximal jejunum is normal in caliber. Contrast reaches the colon within 80 minutes. IMPRESSION: Mildly dilated 2nd and 3rd part of the duodenum. No obstruction to flow. No intrinsic lesion
[2017-01-12] MEDS: SYMBICORT INH SCH ×2 (13:34→17:49)
[2017-01-12] MEDS: Sodium Chloride 0.9% 1,000 ML IV SCH (13:34)
[2017-01-12] MEDS: cefTRIAXone 1 gm 1 GM/100 ML BAG IVPB SCH (13:44)
--- NOTE | 2017-01-12 16:36 | CP.PCM.PN ---
Objective - Vital Signs/Intake and Output Vital Signs (last 24 hours): Temp Pulse Resp BP Pulse Ox 98 F 63 20 122/60 100 01/12/17 08:47 01/12/17 08:47 01/12/17 08:47 01/12/17 08:47 01/12/17 08:47 Intake and Output: 01/12/17 01/12/17 06:59 18:59 Intake Total 360 Balance 360 - Medications Medications: Current Medications Home Med (Home Med) 1 unit INH BID [facility] Last Admin: 01/12/17 13:34 Dose: Not Given Hydromorphone HCl (Dilaudid) 0.5 mg IVP Q4H PRN PRN Reason: Abdominal pain Last Admin: 01/12/17 13:43 Dose: 0.5 mg Ceftriaxone Sodium (Rocephin 1 Gram Ivpb) 1 gm in 100 mls @ 100 mls/hr IVPB DAILY [facility] PRN Reason: Protocol Last Admin: 01/12/17 13:44 Dose: 100 mls/hr Iron Sucrose 100 mg/ Sodium (Chloride) 105 mls @ 210 mls/hr IVPB DAILY [facility] Stop: 01/16/17 10:17 Last Admin: 01/12/17 13:35 Dose: 210 mls/hr Ondansetron HCl (Zofran Inj) 4 mg IVP Q4H PRN PRN Reason: Nausea/Vomiting Pantoprazole Sodium (Protonix Inj) 40 mg IVP DAILY [facility] Last Admin: 01/12/17 13:44 Dose: 40 mg Pregabalin (Lyrica) 150 mg PO BID [facility] Last Admin: 01/12/17 13:33 Dose: Not Given - Labs Labs: 01/12/17 06:00 01/12/17 06:00 PT 11.5 Seconds (9.9-11.8) 01/10/17 19:45 INR 1.06 (0.93-1.08) 01/10/17 19:45 APTT 29.7 Seconds (23.7-30.8) 01/10/17 19:45
--- NOTE | 2017-01-12 17:31 | CP.PCM.PN ---
<Yanet Rosario - Last Filed: 01/12/17 17:27> Subjective - Date & Time of Evaluation Date of Evaluation: 01/12/17 Time of Evaluation: 17:28 - Subjective Subjective: Patient has been S/E. No overnight events reported. Patient stated that her abdominal pain has improved a lot. She is tolerating her full liquid diet, and states that she wants to eat more Objective - Vital Signs/Intake and Output Vital Signs (last 24 hours): Temp Pulse Resp BP Pulse Ox 98 F 63 20 122/60 100 01/12/17 08:47 01/12/17 08:47 01/12/17 08:47 01/12/17 08:47 01/12/17 08:47 Intake and Output: 01/12/17 01/12/17 06:59 18:59 Intake Total 360 Balance 360 - Medications Medications: Current Medications Home Med (Home Med) 1 unit INH BID [facility] Last Admin: 01/12/17 13:34 Dose: Not Given Hydromorphone HCl (Dilaudid) 0.5 mg IVP Q4H PRN PRN Reason: Abdominal pain Last Admin: 01/12/17 13:43 Dose: 0.5 mg Ceftriaxone Sodium (Rocephin 1 Gram Ivpb) 1 gm in 100 mls @ 100 mls/hr IVPB DAILY [facility] PRN Reason: Protocol Last Admin: 01/12/17 13:44 Dose: 100 mls/hr Iron Sucrose 100 mg/ Sodium (Chloride) 105 mls @ 210 mls/hr IVPB DAILY [facility] Stop: 01/16/17 10:17 Last Admin: 01/12/17 13:35 Dose: 210 mls/hr Ondansetron HCl (Zofran Inj) 4 mg IVP Q4H PRN PRN Reason: Nausea/Vomiting Pantoprazole Sodium (Protonix Inj) 40 mg IVP DAILY [facility] Last Admin: 01/12/17 13:44 Dose: 40 mg Pregabalin (Lyrica) 150 mg PO BID [facility] Last Admin: 01/12/17 13:33 Dose: Not Given - Labs Labs: 01/12/17 06:00 01/12/17 06:00 PT 11.5 Seconds (9.9-11.8) 01/10/17 19:45 INR 1.06 (0.93-1.08) 01/10/17 19:45 APTT 29.7 Seconds (23.7-30.8) 01/10/17 19:45 - Constitutional Appears: Well, Non-toxic, No Acute Distress - Head Exam Head Exam: ATRAUMATIC, NORMOCEPHALIC - Respiratory Exam Respiratory Exam: Clear to Ausculation Bilateral, NORMAL BREATHING PATTERN. absent: Rales, Rhonchi, Wheezes - Cardiovascular Exam Cardiovascular Exam: RRR, +S1, +S2 - GI/Abdominal Exam GI & Abdominal Exam: Soft, Tenderness Additional comments: Abdomen only slightly tender to palpations. - Extremities Exam Extremities Exam: absent: Pedal Edema - Neurological Exam Neurological Exam: Alert - Psychiatric Exam Psychiatric exam: Anxious Assessment and Plan - Assessment and Plan (Free Text) Assessment: 71 year old with PMH of COPD admitted for possible SMA Syndrome. CT abd and pelvis showed duodenitis and dilated duodenum proximal to SMA and Aorta. Abd US showed 50-99% stenosis of SMA Plan: 1. Abdominal Pain 2/2 Possible SMA syndrome -dilaudid 0.5mg Q4H PRN for pain -Gi consulted recs appreciated -Surgery Consulted Recs appreciated. -Rocephin -Zofran PRN -Lyrica -ordered MRA -Adv. to regular Diet 2. Normocytic Anemia - Repeat CBC w/ diff in morning -Iron, Ferritin, TIBC -hgb/HCt tonight 3.COPD -Duonebs <Mckenzie Bliss - Last Filed: 01/12/17 21:53> Objective - Vital Signs/Intake and Output Vital Signs (last 24 hours): Temp Pulse Resp BP Pulse Ox 98.6 F 74 19 112/63 100 01/12/17 17:29 01/12/17 17:29 01/12/17 17:29 01/12/17 17:29 01/12/17 17:29 - Medications Medications: Current Medications Home Med (Home Med) 1 unit INH BID [facility] Last Admin: 01/12/17 17:49 Dose: 1 unit Hydromorphone HCl (Dilaudid) 0.5 mg IVP Q4H PRN PRN Reason: Abdominal pain Last Admin: 01/12/17 19:37 Dose: 0.5 mg Ceftriaxone Sodium (Rocephin 1 Gram Ivpb) 1 gm in 100 mls @ 100 mls/hr IVPB DAILY [facility] PRN Reason: Protocol Last Admin: 01/12/17 13:44 Dose: 100 mls/hr Iron Sucrose 100 mg/ Sodium (Chloride) 105 mls @ 210 mls/hr IVPB DAILY [facility] Stop: 01/16/17 10:17 Last Admin: 01/12/17 13:35 Dose: 210 mls/hr Ondansetron HCl (Zofran Inj) 4 mg IVP Q4H PRN PRN Reason: Nausea/Vomiting Pantoprazole Sodium (Protonix Inj) 40 mg IVP DAILY [facility] Last Admin: 01/12/17 13:44 Dose: 40 mg Pregabalin (Lyrica) 150 mg PO BID [facility] Last Admin: 01/12/17 17:49 Dose: 150 mg - Labs Labs: 01/12/17 20:56 01/12/17 06:00 PT 11.5 Seconds (9.9-11.8) 01/10/17 19:45 INR 1.06 (0.93-1.08) 01/10/17 19:45 APTT 29.7 Seconds (23.7-30.8) 01/10/17 19:45 Attending/Attestation - Attestation I have personally seen and examined this patient.: Yes I have fully participated in the care of the patient.: Yes I have reviewed all pertinent clinical information, including history, physical exam and plan: Yes Notes (Text): 01/12/17 21:48 71 year old female who presented with complaint of abdominal pain. CT abd/ pelvis showed possible duodenitis or SMA syndrome. This was followed by [facility] which showed dilated duodenum without obstruction and abdominal ultrasound which showed SMA 50-99% stenosis. However she reports her abdominal pain has much improved. Her diet was advanced which she is tolerated. GI and surgery are following the patient. MRA abdomen is ordered for follow up. She had leukocytosis which has improved. She is on antibiotics for possible UTI. Drop in hemoglobin this morning was ordered. Anemia workup is ordered. Repeat H/H was ordered for this evening. No obvious source of bleeding noted. Will monitor. Will replete and repeat potassium. Continue with duonebs for COPD. Mckenzie Bliss MD Hospitalist.
[2017-01-12 18:21] LABS: HEMOGLOBIN 9.2 gm/dL (12.0-16.0)
[2017-01-12] MEDS ORDERED: Gadodiamide 287 MG/ML VIAL (20ML) IV ONE (18:44)
[2017-01-12 20:59] LABS: HEMOGLOBIN 8.9 gm/dL (12.0-16.0); MEAN CELL VOLUME 90.6 fL (80.0-105.0); MEAN CORPUSCULAR HEMOGLOBIN 28.9 pg (25.0-35.0); MEAN CORPUSCULAR HGB CONC 31.9 g/dl (31.0-37.0); MEAN PLATELET VOLUME 9.7 fl (7.0-11.0); RBC 3.08 10^6/uL (3.5-6.1); RED CELL DISTRIBUTION WIDTH 17.6 % (11.5-14.5); WHITE BLOOD COUNT 9.6 10^3/ul (4.5-11.0)
[2017-01-12 21:18] LABS: % IRON SATURATION 115 % (20-55); IRON 426 ug/dL (45-180); TOTAL IRON BINDING CAPACITY 370 ug/dL (265-497)
--- NOTE | 2017-01-13 02:04 | PN ---
DATE: 01/12/2017 SUBJECTIVE: I examined the patient this morning. She is a 71-year-old white female admitted with complaints of severe periumbilical and epigastric pain, increased in intensity over the past 5 days prior to admission. The patient notes some improvement since yesterday. Abdomen is mildly decompressed, but still exhibiting pain in the range of 4-5/10. She was able to handle of *clear liquids yesterday. I reviewed this case with Dr. Garcia yesterday. The patient denies hematemesis . PHYSICAL EXAMINATION VITAL SIGNS: I reviewed this patient's vital signs. HEENT: Significant for dry mouth. LUNGS: Clear to auscultation. HEART: Regular rhythm. ABDOMEN: Soft, but mildly protuberant. Still exhibiting epigastric and periumbilical discomfort and a fullness is appreciated. Has irregular bowel sounds. LABORATORY DATA: Pending for this morning. OVERALL ASSESSMENT: This is a 71-year-old white female with periumbilical pain, now mildly improved relative to day of admission. She is scheduled for a GI series today to evaluate possible etiologies for the duodenal distension. Depending on the results of the small bowel series, we might consider either a Doppler or MRA or some type radiology study to clarify the issue further. Further input after radiology. One still has to consider possibility of adhesions . I think possibility of inflammatory bowel disease at age too see an initial exacerbation will be less likely possible. Abad Malave DO
[2017-01-13 06:48] LABS: BASO # 0.05 K/mm3 (0.0-2.0); BASO % 0.7 % (0.0-3.0); EOS # 0.4 (0.0-0.7); EOS % 5.6 % (1.5-5.0); GRAN % 66.5 % (50.0-68.0); LYMPH # 1.1 (1.2-3.4); LYMPH % 14.7 % (22.0-35.0); MEAN CELL VOLUME 90.4 fL (80.0-105.0); MEAN CORPUSCULAR HEMOGLOBIN 28.5 pg (25.0-35.0); MEAN CORPUSCULAR HGB CONC 31.6 g/dl (31.0-37.0); MEAN PLATELET VOLUME 9.7 fl (7.0-11.0); MONO % 12.5 % (1.0-6.0); PLATELET COUNT 507 10^3/uL (120.0-450.0); RED CELL DISTRIBUTION WIDTH 18.3 % (11.5-14.5); WHITE BLOOD COUNT 7.7 10^3/ul (4.5-11.0)
[2017-01-13 07:22] LABS: ALBUMIN 2.7 g/dL (3.0-4.8); ALT/SGPT 16 U/L (7-56); AST/SGOT 17 U/L (15-39); BLOOD UREA NITROGEN 8 mg/dL (7-21); CALCIUM 8.6 mg/dL (8.4-10.5); GFR AFRICAN-AMERICAN > 60; GFR NON-AFRICAN AMERICAN > 60
[2017-01-13 07:26] LABS: HEMOGLOBIN 7.7 gm/dL (12.0-16.0)
--- NOTE | 2017-01-13 08:19 | CP.PCM.PN ---
Subjective - Date & Time of Evaluation Date of Evaluation: 01/13/17 Time of Evaluation: 08:15 - Subjective Subjective: General Surgery Progress Note: Resident: Tyra Attending: Alexi HPI: Pt seen and examined at bedside. Doing well. Complains of mild abdominal pain but is much improved. Tolerating diet. -N/V/F/CP/SOB Objective - Vital Signs/Intake and Output Vital Signs (last 24 hours): Temp Pulse Resp BP Pulse Ox 97.7 F 68 19 142/61 93 L 01/13/17 08:01 01/13/17 08:01 01/13/17 08:01 01/13/17 08:01 01/13/17 08:01 Intake and Output: 01/13/17 01/13/17 06:59 18:59 Intake Total 360 0 Balance 360 0 - Medications Medications: Current Medications Home Med (Home Med) 1 unit INH BID [facility] Last Admin: 01/12/17 17:49 Dose: 1 unit Hydromorphone HCl (Dilaudid) 0.5 mg IVP Q4H PRN PRN Reason: Abdominal pain Last Admin: 01/12/17 19:37 Dose: 0.5 mg Ceftriaxone Sodium (Rocephin 1 Gram Ivpb) 1 gm in 100 mls @ 100 mls/hr IVPB DAILY [facility] PRN Reason: Protocol Last Admin: 01/12/17 13:44 Dose: 100 mls/hr Iron Sucrose 100 mg/ Sodium (Chloride) 105 mls @ 210 mls/hr IVPB DAILY [facility] Stop: 01/16/17 10:17 Last Admin: 01/12/17 13:35 Dose: 210 mls/hr Potassium Chloride (Potassium Chloride 20 Meq/100 Ml) 20 meq in 100 mls @ 50 mls/hr IVPB Q2H [facility] Stop: 01/13/17 11:44 Ondansetron HCl (Zofran Inj) 4 mg IVP Q4H PRN PRN Reason: Nausea/Vomiting Pantoprazole Sodium (Protonix Inj) 40 mg IVP DAILY [facility] Last Admin: 01/12/17 13:44 Dose: 40 mg Pregabalin (Lyrica) 150 mg PO BID [facility] Last Admin: 01/12/17 17:49 Dose: 150 mg - Labs Labs: 01/13/17 06:00 01/13/17 06:00 PT 11.5 Seconds (9.9-11.8) 01/10/17 19:45 INR 1.06 (0.93-1.08) 01/10/17 19:45 APTT 29.7 Seconds (23.7-30.8) 01/10/17 19:45 - Constitutional Appears: No Acute Distress - Head Exam Head Exam: NORMAL INSPECTION - Eye Exam Eye Exam: EOMI - ENT Exam ENT Exam: Mucous Membranes Moist - Respiratory Exam Respiratory Exam: Clear to Ausculation Bilateral - Cardiovascular Exam Cardiovascular Exam: REGULAR RHYTHM - GI/Abdominal Exam GI & Abdominal Exam: Soft, Tenderness (mild tenderness in all 4 quadrants). absent: Distended - Neurological Exam Neurological Exam: Alert, Awake, Oriented x3 - Psychiatric Exam Psychiatric exam: Normal Affect, Normal Mood - Skin Skin Exam: Warm Assessment and Plan - Assessment and Plan (Free Text) Assessment: 71 y/o WF w/ SMA stenosis * f/u MRA results with IR * pain control * regular diet Enrique Mary DO PGY-1
[2017-01-13] MEDS: HYDROmorphone 0.5 mg/0.5 ml ISec IVP PRN ×3 (09:20→19:14)
[2017-01-13] MEDS ORDERED: Potassium Chloride 20 mEq ER Tab PO ONE (13:55)
[2017-01-13] MEDS ORDERED: Gadodiamide 287 MG/ML VIAL (20ML) IV ONE (14:11)
[2017-01-13 14:21] LABS: HEMOGLOBIN 8.6 gm/dL (12.0-16.0)
[2017-01-13] MEDS: SYMBICORT INH SCH (14:28)
--- NOTE | 2017-01-13 15:18 | PN ---
SUBJECTIVE: I examined Ms. Spencer this morning. This is a 71-year-old white female with complaint of diffuse abdominal pain with duodenal dilatation noted on CT scan. The patient has made a significant progress on her current therapeutic regimen and feels significantly improved relative to day of admission. She underwent MRI/MRA study yesterday and a GI series which was significant for mildly dilated second and third portions of duodenum with no obstruction noted. There was no intrinsic region. At the bedside this morning, the patient has improved. There is no nausea. Pain is diminutive, she was able to handle dye yesterday. PHYSICAL EXAMINATION: Vital Signs: Reviewed this patient's vital signs. HEENT: Noncontributory. Lungs: Decreased breath sounds at bases. Heart: Regular rhythm. Abdomen: Soft, minimal tenderness exhibited in the periumbilical area. ASSESSMENT AND PLAN: The MRI/MRA study is pending. I reviewed the GI series as above. The patient is currently improving on her current therapeutic regimen, and her diet is advanced yesterday. She is tolerating diet as per house staff. At the current time point, we will continue the current regimen and check on the results of the MRI/MRA. Reason for the patient's anemia is unclear, however, the H and H is roughly at 9/28. No bleeding noted. Note that she had an abdominal ultrasound yesterday which showed *------* more suggestive of adhesion rather than anything else. However, still have to rule out some degree of vascular compression syndrome. I reviewed the respective notes of the house staff plus the respective radiology. Abad Malave DO
[2017-01-13] MEDS: cefTRIAXone 1 gm 1 GM/100 ML BAG IVPB SCH (16:04)
--- NOTE | 2017-01-13 16:05 | MRI ---
PROCEDURE: MR angiography of the abdomen with and without contrast HISTORY: SMA Stenosis COMPARISON: CT of the abdomen dated 01/10/2017 TECHNIQUE: MR angiography of the abdomen was performed in multiple planes using multiple pulse sequences including pre and postcontrast imaging. 20 cc of Omniscan was administered FINDINGS: The origin of the SMA was not well visualized on MR angiography. Scanning was performed in the coronal plane. The proximal branches of the SMA are patent. There is a moderate stenosis at the origin of the SMA. On the CT scan a calcified plaque was seen in this region. The abnormality was better visualized on CT The celiac axis is patent. The renal arteries are patent. The aorta is normal in caliber. The report concurs with the preliminary [facility] report IMPRESSION: Moderate stenosis at the origin of the SMA.
--- NOTE | 2017-01-13 16:26 | MRI ---
PROCEDURE: MR angiography of the abdomen with and without contrast HISTORY: sma stenosis COMPARISON: MRA study performed 01/12/[address] study dated 01/10/2017 TECHNIQUE: This is a repeat study. The initial study did not optimally visualize the SMA. The current study was performed with more imaging in the sagittal plane. The study was performed with and without contrast. 20 cc of Omniscan were injected. FINDINGS: There is moderate to severe stenosis of the origin of the SMA and as seen on image 4 of series 700. Distal branches are not visualized. If there is serious concern of SMA syndrome and ischemic bowel a catheter angiogram may be indicated. The celiac and renal arteries are patent. The aorta is normal in caliber. IMPRESSION: Moderate to severe stenosis of the origin of the SMA.
--- NOTE | 2017-01-13 18:08 | CP.PCM.PN ---
<Yanet Rosario - Last Filed: 01/13/17 18:05> Subjective - Date & Time of Evaluation Date of Evaluation: 01/13/17 Time of Evaluation: 18:05 - Subjective Subjective: Patient has been S/E. No overnight events reported. Patient stated that her abdominal pain has improved a lot. She is tolerating regular diet. Patient wishes to go home. Objective - Vital Signs/Intake and Output Vital Signs (last 24 hours): Temp Pulse Resp BP Pulse Ox 98.3 F 75 19 131/65 100 01/13/17 16:00 01/13/17 16:00 01/13/17 16:00 01/13/17 16:00 01/13/17 16:00 Intake and Output: 01/13/17 01/13/17 06:59 18:59 Intake Total 360 0 Balance 360 0 - Medications Medications: Current Medications Home Med (Home Med) 1 unit INH BID [facility]S [facility] Last Admin: 01/13/17 14:28 Dose: 1 unit Hydromorphone HCl (Dilaudid) 0.5 mg IVP Q4H PRN PRN Reason: Abdominal pain Last Admin: 01/13/17 13:49 Dose: 0.5 mg Ceftriaxone Sodium (Rocephin 1 Gram Ivpb) 1 gm in 100 mls @ 100 mls/hr IVPB DAILY [facility]CLUDE 234 BEDS AT [facility] PRN Reason: Protocol Last Admin: 01/13/17 16:04 Dose: 100 mls/hr Iron Sucrose 100 mg/ Sodium (Chloride) 105 mls @ 210 mls/hr IVPB DAILY [facility]S [facility]CLUDE 234 BEDS AT [facility] Stop: 01/16/17 10:17 Last Admin: 01/13/17 14:30 Dose: 210 mls/hr Ondansetron HCl (Zofran Inj) 4 mg IVP Q4H PRN PRN Reason: Nausea/Vomiting Pantoprazole Sodium (Protonix Inj) 40 mg IVP DAILY [facility] 234 BEDS AT [facility] Last Admin: 01/13/17 16:03 Dose: 40 mg Pregabalin (Lyrica) 150 mg PO BID [facility] 234 BEDS AT [facility] Last Admin: 01/13/17 14:28 Dose: Not Given - Labs Labs: 01/13/17 14:08 01/13/17 06:00 PT 11.5 Seconds (9.9-11.8) 01/10/17 19:45 INR 1.06 (0.93-1.08) 01/10/17 19:45 APTT 29.7 Seconds (23.7-30.8) 01/10/17 19:45 - Constitutional Appears: Well, Non-toxic, No Acute Distress - Head Exam Head Exam: ATRAUMATIC, NORMOCEPHALIC - Respiratory Exam Respiratory Exam: Clear to Ausculation Bilateral. absent: Rales, Rhonchi, Wheezes, Stridor - Cardiovascular Exam Cardiovascular Exam: +S1, +S2 - GI/Abdominal Exam GI & Abdominal Exam: Soft, Tenderness, Normal Bowel Sounds. absent: Organomegaly - Extremities Exam Extremities Exam: absent: Pedal Edema - Neurological Exam Neurological Exam: Alert, Awake, Oriented x3 - Psychiatric Exam Psychiatric exam: Normal Affect, Normal Mood - Skin Skin Exam: Dry, Intact, Normal Color, Warm Assessment and Plan - Assessment and Plan (Free Text) Assessment: 71 year old with PMH of COPD admitted for possible SMA Syndrome. CT abd and pelvis showed duodenitis and dilated duodenum proximal to SMA and Aorta. Abd US showed 50-99% stenosis of SMA. Abd series showed dilated duodenum w/ no obstruction. MRA showed mod-severe stenosis of proximal SMA. Indication of catheter angiogram if serious concern of SMA syndrome or ischemic bowel. If patient continues to be asymptomatic will consider discharging tomorrow post IR recs. Plan: 1. Abdominal Pain 2/2 Possible SMA syndrome -dilaudid 0.5mg Q4H PRN for pain -Gi consulted recs appreciated -Surgery Consulted Recs appreciated. -Rocephin -Zofran PRN -Lyrica -Consult with IR about MRA findings. -Regular Diet 2. Normocytic Anemia Hgb 8.6 Monitor CBC -Elevated Iron, normal TIBC, and Ferritn. -Consider Heme consult 3.COPD -Dukyle <Mckenzie Bliss - Last Filed: 01/13/17 22:16> Objective - Vital Signs/Intake and Output Vital Signs (last 24 hours): Temp Pulse Resp BP Pulse Ox 98.3 F 75 19 131/65 100 01/13/17 16:00 01/13/17 16:00 01/13/17 16:00 01/13/17 16:00 01/13/17 16:00 Intake and Output: 01/13/17 01/14/17 18:59 06:59 Intake Total 0 420 Balance 0 420 - Medications Medications: Current Medications Home Med (Home Med) 1 unit INH BID [facility] 234 BEDS [facility] Last Admin: 01/13/17 14:28 Dose: 1 unit Hydromorphone HCl (Dilaudid) 0.5 mg IVP Q4H PRN PRN Reason: Abdominal pain Last Admin: 01/13/17 19:14 Dose: 0.5 mg Ceftriaxone Sodium (Rocephin 1 Gram Ivpb) 1 gm in 100 mls @ 100 mls/hr IVPB DAILY [facility]CLUDE 234 BEDS AT [facility] PRN Reason: Protocol Last Admin: 01/13/17 16:04 Dose: 100 mls/hr Iron Sucrose 100 mg/ Sodium (Chloride) 105 mls @ 210 mls/hr IVPB DAILY [facility]S [facility]CLUDE 234 BEDS AT [facility] Stop: 01/16/17 10:17 Last Admin: 01/13/17 14:30 Dose: 210 mls/hr Ondansetron HCl (Zofran Inj) 4 mg IVP Q4H PRN PRN Reason: Nausea/Vomiting Pantoprazole Sodium (Protonix Inj) 40 mg IVP DAILY [facility]CLUDE 234 BEDS AT [facility] Last Admin: 01/13/17 16:03 Dose: 40 mg Pregabalin (Lyrica) 150 mg PO BID [facility]CLUDE 234 BEDS AT [facility] Last Admin: 01/13/17 18:06 Dose: 150 mg - Labs Labs: 01/13/17 14:08 01/13/17 06:00 PT 11.5 Seconds (9.9-11.8) 01/10/17 19:45 INR 1.06 (0.93-1.08) 01/10/17 19:45 APTT 29.7 Seconds (23.7-30.8) 01/10/17 19:45 Attending/Attestation - Attestation I have personally seen and examined this patient.: Yes I have fully participated in the care of the patient.: Yes I have reviewed all pertinent clinical information, including history, physical exam and plan: Yes Notes (Text): 01/13/17 22:12 71 year old female who presented with complaint of abdominal pain. CT abd/ pelvis showed possible duodenitis or SMA syndrome. This was followed by [facility] which showed dilated duodenum without obstruction and abdominal ultrasound which showed SMA 50-99% stenosis. She has an abdominal MRA which was read this evening showing moderate to severe stenosis of proximal SMA. GI and surgery are following. She states she wants to go home but at the same time still reports post-prandial abdominal pain and history of weight loss. Will need to discuss with IR in AM for recommendations. She is on antibiotics for UTI. She still has fluctuating anemia. She is on iron supplement. Will continue to monitor. Will replete and repeat potassium. Mckenzie Bliss MD Hospitalist.
[2017-01-13 22:16] LABS: BASO # 0.04 K/mm3 (0.0-2.0); BASO % 0.4 % (0.0-3.0); EOS # 0.4 (0.0-0.7); EOS % 3.9 % (1.5-5.0); GRAN # 6.15 (1.4-6.5); GRAN % 62.3 % (50.0-68.0); HEMOGLOBIN 8.2 gm/dL (12.0-16.0); LYMPH # 2.1 (1.2-3.4); LYMPH % 21.6 % (22.0-35.0); MEAN CELL VOLUME 91.3 fL (80.0-105.0); MEAN CORPUSCULAR HEMOGLOBIN 28.6 pg (25.0-35.0); MEAN CORPUSCULAR HGB CONC 31.3 g/dl (31.0-37.0); MEAN PLATELET VOLUME 9.8 fl (7.0-11.0); MONO # 1.2 (0.1-0.6); MONO % 11.8 % (1.0-6.0); PLATELET COUNT 520 10^3/uL (120.0-450.0); RBC 2.87 10^6/uL (3.5-6.1); RED CELL DISTRIBUTION WIDTH 18.6 % (11.5-14.5); WHITE BLOOD COUNT 9.9 10^3/ul (4.5-11.0)
[2017-01-14] MEDS: HYDROmorphone 0.5 mg/0.5 ml ISec IVP PRN ×3 (00:13→12:13)
[2017-01-14 06:47] LABS: BASO # 0.06 K/mm3 (0.0-2.0); BASO % 0.7 % (0.0-3.0); EOS # 0.5 (0.0-0.7); EOS % 5.6 % (1.5-5.0); GRAN # 4.89 (1.4-6.5); LYMPH # 1.6 (1.2-3.4); MEAN CELL VOLUME 91.3 fL (80.0-105.0); MEAN CORPUSCULAR HEMOGLOBIN 28.4 pg (25.0-35.0); MEAN CORPUSCULAR HGB CONC 31.1 g/dl (31.0-37.0); MEAN PLATELET VOLUME 9.7 fl (7.0-11.0); MONO % 12.7 % (1.0-6.0); PLATELET COUNT 564 10^3/uL (120.0-450.0); RBC 2.75 10^6/uL (3.5-6.1); RED CELL DISTRIBUTION WIDTH 19.2 % (11.5-14.5)
[2017-01-14 07:00] LABS: HEMOGLOBIN 7.8 gm/dL (12.0-16.0)
[2017-01-14 07:14] LABS: ALB/GLOB RATIO 1.1 (1.1-1.8); ALBUMIN 2.8 g/dL (3.0-4.8); ALT/SGPT 18 U/L (7-56); AST/SGOT 19 U/L (15-39); BLOOD UREA NITROGEN 9 mg/dL (7-21); CALCIUM 8.5 mg/dL (8.4-10.5); GFR AFRICAN-AMERICAN > 60; GFR NON-AFRICAN AMERICAN > 60
--- NOTE | 2017-01-14 08:53 | CP.PCM.PN ---
Subjective - Date & Time of Evaluation Date of Evaluation: 01/14/17 Time of Evaluation: 08:00 - Subjective Subjective: SURGERY PROGRESS NOTE FOR DR. GARCIA 71F seen and examined at bedside. Denies pain, nausea, vomiting. She is tolerating diet. Inquired about going home. Objective - Vital Signs/Intake and Output Vital Signs (last 24 hours): Temp Pulse Resp BP Pulse Ox 98.3 F 75 19 131/65 100 01/13/17 16:00 01/13/17 16:00 01/13/17 16:00 01/13/17 16:00 01/13/17 16:00 Intake and Output: 01/14/17 01/14/17 06:59 18:59 Intake Total 420 Balance 420 - Medications Medications: Current Medications Home Med (Home Med) 1 unit INH BID [facility] Last Admin: 01/13/17 14:28 Dose: 1 unit Hydromorphone HCl (Dilaudid) 0.5 mg IVP Q4H PRN PRN Reason: Abdominal pain Last Admin: 01/14/17 07:53 Dose: 0.5 mg Ceftriaxone Sodium (Rocephin 1 Gram Ivpb) 1 gm in 100 mls @ 100 mls/hr IVPB DAILY [facility] PRN Reason: Protocol Last Admin: 01/13/17 16:04 Dose: 100 mls/hr Iron Sucrose 100 mg/ Sodium (Chloride) 105 mls @ 210 mls/hr IVPB DAILY [facility] Stop: 01/16/17 10:17 Last Admin: 01/13/17 14:30 Dose: 210 mls/hr Ondansetron HCl (Zofran Inj) 4 mg IVP Q4H PRN PRN Reason: Nausea/Vomiting Pantoprazole Sodium (Protonix Inj) 40 mg IVP DAILY [facility] Last Admin: 01/13/17 16:03 Dose: 40 mg Pregabalin (Lyrica) 150 mg PO BID [facility] Last Admin: 01/13/17 18:06 Dose: 150 mg - Labs Labs: 01/14/17 06:15 01/14/17 06:15 PT 11.5 Seconds (9.9-11.8) 01/10/17 19:45 INR 1.06 (0.93-1.08) 01/10/17 19:45 APTT 29.7 Seconds (23.7-30.8) 01/10/17 19:45 - Constitutional Appears: Non-toxic, No Acute Distress - Respiratory Exam Respiratory Exam: Clear to Ausculation Bilateral, NORMAL BREATHING PATTERN - Cardiovascular Exam Cardiovascular Exam: REGULAR RHYTHM, +S1, +S2 - GI/Abdominal Exam GI & Abdominal Exam: Soft. absent: Distended, Firm, Guarding, Rigid, Tenderness , Rebound - Neurological Exam Neurological Exam: Alert, Awake Assessment and Plan - Assessment and Plan (Free Text) Assessment: 71F with duodenitis and SMA stenosis as seen on MRA - f/u IR recommendation - No surgical interventions at this time Further recs discuss with Dr. Alexi Cerda, PGY1
[2017-01-14] MEDS: cefTRIAXone 1 gm 1 GM/100 ML BAG IVPB SCH (09:15)
[2017-01-14] MEDS: SYMBICORT INH SCH (09:56)
[2017-01-14 11:30] VITALS: BP 136/63; PULSE 85; RESP 18; TEMP 98.5; O2SAT 94
[2017-01-14] MEDS ORDERED: Potassium Chloride 20 mEq ER Tab PO ONE (13:10)
--- NOTE | 2017-01-14 13:33 | PN ---
DATE: 01/14/2017 SUBJECTIVE: I examined the patient this morning. She is a 71-year-old white female with complaints of severe epigastric and periumbilical pain. This was associated with abdominal distention. Clinical scenario in this particular case was dilatation of the small intestine with a possibility of vascular compression *------* symptoms of abdominal pain. Overall, in the past couple of days, the patient has made considerable progress, able to have the meals, however, at the bedside this morning, still complaining of some degree of abdominal pain. The discomfort is mildly in the epigastric area as well as the periumbilical. The abdomen has decompressed substantially. Note, review of the patient's MRI with contrast indicates mild to severe stenosis of the SMA and possibly some degree of bowel ischemia due to worse visualization of distal branches of the SMA. Note that the *------* arteries were patent. The overall impression of problem was mild to severe stenosis of the origin of the SMA. At the current time point, I reviewed Dr. Bliss's note, which indicates that if the patient continues to be asymptomatic, we will consider discharging. The patient can be followed up with interventional radiology at a later date. Note that the patient has some degree of anemia, although not bleeding at the current time point grossly. Etiology of the anemia is questionable. The house staff to follow up with the patient sometime later on this morning. Abad Malave DO
--- NOTE | 2017-01-14 15:30 | CP.PCM.DIS ---
<Yanet Rosario - Last Filed: 01/14/17 15:52> Provider - Provider Date of Admission: 01/10/17 23:29 Attending physician: Paco Forrester MD Primary care physician: Temo Peña MD Consults: GI - Dr. Malave Surgery - Dr. Truong IR - Dr. Saman Vail Time Spent in preparation of Discharge (in minutes): 45 Hospital Course - Lab Results Lab Results: Most Recent Lab Values WBC 8.0 10^3/ul (4.5-11.0) 01/14/17 06:15 RBC 2.75 10^6/uL (3.5-6.1) L 01/14/17 06:15 Hgb 7.8 gm/dL (12.0-16.0) L 01/14/17 06:15 Hct 25.1 % (36.0-48.0) L 01/14/17 06:15 MCV 91.3 fL (80.0-105.0) 01/14/17 06:15 MCH 28.4 pg (25.0-35.0) 01/14/17 06:15 MCHC 31.1 g/dl (31.0-37.0) 01/14/17 06:15 RDW 19.2 % (11.5-14.5) H 01/14/17 06:15 Plt Count 564 10^3/uL (120.0-450.0) H 01/14/17 06:15 MPV 9.7 fl (7.0-11.0) 01/14/17 06:15 Gran % 61.0 % (50.0-68.0) 01/14/17 06:15 Lymph % (Auto) 20.0 % (22.0-35.0) L 01/14/17 06:15 [place] % (Auto) 12.7 % (1.0-6.0) H 01/14/17 06:15 Eos % (Auto) 5.6 % (1.5-5.0) H 01/14/17 06:15 Baso % (Auto) 0.7 % (0.0-3.0) 01/14/17 06:15 Gran # 4.89 (1.4-6.5) 01/14/17 06:15 Lymph # 1.6 (1.2-3.4) 01/14/17 06:15 [place] # 1.0 (0.1-0.6) H 01/14/17 06:15 Eos # 0.5 (0.0-0.7) 01/14/17 06:15 Baso # 0.06 K/mm3 (0.0-2.0) 01/14/17 06:15 PT 11.5 Seconds (9.9-11.8) 01/10/17 19:45 INR 1.06 (0.93-1.08) 01/10/17 19:45 APTT 29.7 Seconds (23.7-30.8) 01/10/17 19:45 Sodium 140 mmol/L (132-148) 01/14/17 06:15 Potassium 3.6 mmol/L (3.6-5.0) 01/14/17 06:15 Chloride 104 mmol/L (98-107) 01/14/17 06:15 Carbon Dioxide 28 mmol/L (21-33) 01/14/17 06:15 Anion Gap 12 (10-20) 01/14/17 06:15 BUN 9 mg/dL (7-21) 01/14/17 06:15 Creatinine 0.5 mg/dL (0.5-1.4) 01/14/17 06:15 Est GFR ( Amer) > 60 01/14/17 06:15 Est GFR (Non-Af Amer) > 60 01/14/17 06:15 Random Glucose 79 mg/dL (70-110) 01/14/17 06:15 Lactic Acid 0.6 mmol/L (0.7-2.1) L 01/10/17 20:50 Calcium 8.5 mg/dL (8.4-10.5) 01/14/17 06:15 Iron 426 ug/dL (45-180) H 01/12/17 20:56 TIBC 370 ug/dL (265-497) 01/12/17 20:56 % Saturation 115 % (20-55) H 01/12/17 20:56 Ferritin 17.6 ng/mL 01/12/17 06:00 Total Bilirubin 0.2 mg/dL (0.2-1.3) 01/14/17 06:15 AST 19 U/L (15-39) 01/14/17 06:15 ALT 18 U/L (7-56) 01/14/17 06:15 Alkaline Phosphatase 58 U/L (38-133) 01/14/17 06:15 Lactate Dehydrogenase 434 U/L (333-699) 01/10/17 19:45 Total Creatine Kinase 21 U/L (35-230) L 01/10/17 19:45 Troponin I < 0.01 ng/mL 01/10/17 19:45 NT-Pro-B Natriuret Pep 716 pg/mL (0-450) H 01/10/17 19:45 Total Protein 5.4 g/dL (5.8-8.3) L 01/14/17 06:15 Albumin 2.8 g/dL (3.0-4.8) L 01/14/17 06:15 Globulin 2.6 gm/dL 01/14/17 06:15 Albumin/Globulin Ratio 1.1 (1.1-1.8) 01/14/17 06:15 Lipase 69 U/L (23-300) 01/10/17 19:45 Urine Color yellow (YELLOW) 01/10/17 22:40 Urine Appearance Clear (CLEAR) 01/10/17 22:40 Urine pH 6.5 (4.7-8.0) 01/10/17 22:40 Ur Specific [place] <= 1.005 (1.005-1.035) 01/10/17 22:40 Urine Protein Trace mg/dL (<30 mg/dL) H 01/10/17 22:40 Urine Glucose (UA) Negative mg/dL (NEGATIVE) 01/10/17 22:40 Urine Ketones Trace mg/dL (NEGATIVE) H 01/10/17 22:40 Urine Blood Negative (NEGATIVE) 01/10/17 22:40 Urine Nitrate Negative (NEGATIVE) 01/10/17 22:40 Urine Bilirubin Negative (NEGATIVE) 01/10/17 22:40 Urine Urobilinogen 0.2 E.U./dL (<1 E.U./dL) 01/10/17 22:40 Ur Leukocyte Esterase Negative Lucio/uL (NEGATIVE) 01/10/17 22:40 Urine RBC TEST NOT PERFORMED 01/10/17 22:40 Urine WBC 2 - 5 /hpf (0-6) 01/10/17 22:40 Ur Epithelial Cells 10 - 12 /hpf (0-5) 01/10/17 22:40 Amorphous Sediment Trace 01/10/17 22:40 - Hospital Course Hospital Course: 71 year old female with PMH of COPD admitted for abdominal pain likely 2/[address] abd and pelvis showed duodenitis and dilated duodenum proximal to SMA and Aorta. GI, Surgery, and IR were consulted during the stay. Abd US showed 50-99% stenosis of SMA. Abd series showed dilated duodenum w/ no obstruction. MRA showed mod-severe stenosis of proximal SMA. Patient had asymptomatic anemia during stay and was supplemented with Iron which she will continue outpatient. Patient was advance from NPO to liquids, to a full regular diet during her stay which she is tolerating. Urine cultures grew Gram positive Cocci which was treated with Ceftriaxone during her stay. She will follow up her PMD and Interventional radiologist within once week for intervention for her mod-severe SMA stenosis. Patient is agreeable to plan and medications ( shown below). Outpatient medications: Aspirin, Plavix , Iron Supplement , Colace, Cefpodoxime , and Tramadol for moderate to severe pain Patient seen, discussed, and reviewed with Attending. Yanet Rosario PGY-1 - Date & Time of H&P Date of H&P: 01/14/17 Time of H&P: 15:55 Discharge Exam - Head Exam Head Exam: ATRAUMATIC, NORMOCEPHALIC - Eye Exam Eye Exam: EOMI - Respiratory Exam Respiratory Exam: Clear to PA & Lateral, NORMAL BREATHING PATTERN. absent: Accessory Muscle Use, Rales, Rhonchi, Wheezes, Respiratory Distress, Stridor - Cardiovascular Exam Cardiovascular Exam: RRR, +S1, +S2. absent: JVD, +S4 - GI/Abdominal Exam GI & Abdominal Exam: Normal Bowel Sounds, Soft Additional comments: mildy tender after eating. - Extremities Exam Additional comments: No pedal edema, and normal capillary refill. - Neurological Exam Neurological exam: Alert, Oriented x3 - Psychiatric Exam Psychiatric exam: Normal Affect, Normal Mood - Skin Skin Exam: Normal Color, Warm Discharge Plan - Discharge Medications Prescriptions: RX: Aspirin [Low Dose Aspirin EC] 81 mg PO DAILY #7 tablet. RX: Cefpodoxime Proxetil 200 mg PO BID #10 tablet Clopidogrel [Plavix] 75 mg PO DAILY #7 tab Docusate [Colace] 100 mg PO BID PRN #14 cap PRN Reason: Constipation - Follow Up Plan Condition: STABLE Disposition: HOME/ ROUTINE Instructions: Acute Abdominal Pain (DC), Bowel Obstruction (DC) Additional Instructions: 1. Follow up with Primary Physician within 1 week 2. Follow up with Dr. Saman Vail (Interventional Radiologist) within one week 3. The following medications will be sent to your pharmacy ([facility] in [place] ). Please take as instructed. -Aspirin, Plavix (blood thinner), Iron Supplement (for Anemia), Colace (for constipation), Cefpodoxime (Antibiotic for Urinary Tract Infection), Tramadol for moderate to severe pain. Referrals: Temo Peña MD [Primary Care Provider] - <Paco Forrester - Last Filed: 01/18/17 10:59> Provider - Provider Date of Admission: 01/10/17 23:29 Attending physician: Paco Forrester MD Primary care physician: Temo Peña MD Hospital Course - Lab Results Lab Results: Most Recent Lab Values WBC 8.0 10^3/ul (4.5-11.0) 01/14/17 06:15 RBC 2.75 10^6/uL (3.5-6.1) L 01/14/17 06:15 Hgb 7.8 gm/dL (12.0-16.0) L 01/14/17 06:15 Hct 25.1 % (36.0-48.0) L 01/14/17 06:15 MCV 91.3 fL (80.0-105.0) 01/14/17 06:15 MCH 28.4 pg (25.0-35.0) 01/14/17 06:15 MCHC 31.1 g/dl (31.0-37.0) 01/14/17 06:15 RDW 19.2 % (11.5-14.5) H 01/14/17 06:15 Plt Count 564 10^3/uL (120.0-450.0) H 01/14/17 06:15 MPV 9.7 fl (7.0-11.0) 01/14/17 06:15 Gran % 61.0 % (50.0-68.0) 01/14/17 06:15 Lymph % (Auto) 20.0 % (22.0-35.0) L 01/14/17 06:15 [place] % (Auto) 12.7 % (1.0-6.0) H 01/14/17 06:15 Eos % (Auto) 5.6 % (1.5-5.0) H 01/14/17 06:15 Baso % (Auto) 0.7 % (0.0-3.0) 01/14/17 06:15 Gran # 4.89 (1.4-6.5) 01/14/17 06:15 Lymph # 1.6 (1.2-3.4) 01/14/17 06:15 [place] # 1.0 (0.1-0.6) H 01/14/17 06:15 Eos # 0.5 (0.0-0.7) 01/14/17 06:15 Baso # 0.06 K/mm3 (0.0-2.0) 01/14/17 06:15 PT 11.5 Seconds (9.9-11.8) 01/10/17 19:45 INR 1.06 (0.93-1.08) 01/10/17 19:45 APTT 29.7 Seconds (23.7-30.8) 01/10/17 19:45 Sodium 140 mmol/L (132-148) 01/14/17 06:15 Potassium 3.6 mmol/L (3.6-5.0) 01/14/17 06:15 Chloride 104 mmol/L (98-107) 01/14/17 06:15 Carbon Dioxide 28 mmol/L (21-33) 01/14/17 06:15 Anion Gap 12 (10-20) 01/14/17 06:15 BUN 9 mg/dL (7-21) 01/14/17 06:15 Creatinine 0.5 mg/dL (0.5-1.4) 01/14/17 06:15 Est GFR ( Amer) > 60 01/14/17 06:15 Est GFR (Non-Af Amer) > 60 01/14/17 06:15 Random Glucose 79 mg/dL (70-110) 01/14/17 06:15 Lactic Acid 0.6 mmol/L (0.7-2.1) L 01/10/17 20:50 Calcium 8.5 mg/dL (8.4-10.5) 01/14/17 06:15 Iron 426 ug/dL (45-180) H 01/12/17 20:56 TIBC 370 ug/dL (265-497) 01/12/17 20:56 % Saturation 115 % (20-55) H 01/12/17 20:56 Ferritin 17.6 ng/mL 01/12/17 06:00 Total Bilirubin 0.2 mg/dL (0.2-1.3) 01/14/17 06:15 AST 19 U/L (15-39) 01/14/17 06:15 ALT 18 U/L (7-56) 01/14/17 06:15 Alkaline Phosphatase 58 U/L (38-133) 01/14/17 06:15 Lactate Dehydrogenase 434 U/L (333-699) 01/10/17 19:45 Total Creatine Kinase 21 U/L (35-230) L 01/10/17 19:45 Troponin I < 0.01 ng/mL 01/10/17 19:45 NT-Pro-B Natriuret Pep 716 pg/mL (0-450) H 01/10/17 19:45 Total Protein 5.4 g/dL (5.8-8.3) L 01/14/17 06:15 Albumin 2.8 g/dL (3.0-4.8) L 01/14/17 06:15 Globulin 2.6 gm/dL 01/14/17 06:15 Albumin/Globulin Ratio 1.1 (1.1-1.8) 01/14/17 06:15 Lipase 69 U/L (23-300) 01/10/17 19:45 Urine Color yellow (YELLOW) 01/10/17 22:40 Urine Appearance Clear (CLEAR) 01/10/17 22:40 Urine pH 6.5 (4.7-8.0) 01/10/17 22:40 Ur Specific [place] <= 1.005 (1.005-1.035) 01/10/17 22:40 Urine Protein Trace mg/dL (<30 mg/dL) H 01/10/17 22:40 Urine Glucose (UA) Negative mg/dL (NEGATIVE) 01/10/17 22:40 Urine Ketones Trace mg/dL (NEGATIVE) H 01/10/17 22:40 Urine Blood Negative (NEGATIVE) 01/10/17 22:40 Urine Nitrate Negative (NEGATIVE) 01/10/17 22:40 Urine Bilirubin Negative (NEGATIVE) 01/10/17 22:40 Urine Urobilinogen 0.2 E.U./dL (<1 E.U./dL) 01/10/17 22:40 Ur Leukocyte Esterase Negative Lucio/uL (NEGATIVE) 01/10/17 22:40 Urine RBC TEST NOT PERFORMED 01/10/17 22:40 Urine WBC 2 - 5 /hpf (0-6) 01/10/17 22:40 Ur Epithelial Cells 10 - 12 /hpf (0-5) 01/10/17 22:40 Amorphous Sediment Trace 01/10/17 22:40 Attending/Attestation - Attestation I have personally seen and examined this patient.: Yes I have fully participated in the care of the patient.: Yes I have reviewed all pertinent clinical information, including history, physical exam and plan: Yes Notes (Text): I have seen and examined the patient at bedside. Agree with the above note with the following additions/ exceptions: Briefly this is 71 year old female with history of COPD who was admitted with post prandial abdominal pain and unintentional significant weight loss and found to have SMA 50-99% stenosis. She has an abdominal MRA which confirmed moderate to severe stenosis of proximal SMA. Discussed with Dr Saman Vail in detail who will arrange for outpatient intervention within this week as patient is eager to go home today. Upon discharge patient will follow up with Dr Peña and Dr Saman vail. Dr Paco Forrester
== END 2017-01-14 18:13 | disposition home or self-care (01) | DRG 394 ==
LOC: ED 18:23 → ERH 23:29 → 3RSO 01-11 00:35 → 3RNO 01-12 14:21
PROVIDERS: ADMIT Internal Medicine; ATTEND Hospitalist
DX: K55.1 Chronic vascular disorders of intestine (principal); N39.0 Urinary tract infection, site not specified; K29.80 Duodenitis without bleeding; J44.9 Chronic obstructive pulmonary disease, unspecified; D64.9 Anemia, unspecified; Z96.642 Presence of left artificial hip joint; Z72.0 Tobacco use

== ENCOUNTER 2017-01-20 06:21 | Day surgery (SDC) | payer MEDICARE, MEDICAID ==
[2017-01-16 08:51] VITALS: BMI 16.8
[2017-01-20 06:58] LABS: BASO # 0.03 K/mm3 (0.0-2.0); BASO % 0.3 % (0.0-3.0); EOS # 0.3 (0.0-0.7); EOS % 2.5 % (1.5-5.0); GRAN # 9.31 (1.4-6.5); GRAN % 85.4 % (50.0-68.0); HEMOGLOBIN 9.8 gm/dL (12.0-16.0); LYMPH # 0.6 (1.2-3.4); LYMPH % 5.9 % (22.0-35.0); MEAN CELL VOLUME 93.2 fL (80.0-105.0); MEAN CORPUSCULAR HEMOGLOBIN 29.1 pg (25.0-35.0); MEAN CORPUSCULAR HGB CONC 31.2 g/dl (31.0-37.0); MEAN PLATELET VOLUME 9.4 fl (7.0-11.0); MONO # 0.6 (0.1-0.6); MONO % 5.9 % (1.0-6.0); PLATELET COUNT 506 10^3/uL (120.0-450.0); RBC 3.37 10^6/uL (3.5-6.1); RED CELL DISTRIBUTION WIDTH 20.2 % (11.5-14.5); WHITE BLOOD COUNT 10.9 10^3/ul (4.5-11.0)
[2017-01-20] MEDS ORDERED: Lidocaine 2% Inj (20ml) ONE (06:59)
[2017-01-20] MEDS ORDERED: Nitroglycerin 50mg in D5W 50 MG/250 ML BOTTLE IV ONE (06:59)
[2017-01-20] MEDS ORDERED: Iodixanol 320 MG/ML 100 ML BOTTLE IV ONE ×2 (07:00→08:58)
[2017-01-20] MEDS ORDERED: Iodixanol 320 MG/ML 200 ML BOTTLE IV ONE (07:00)
[2017-01-20 07:15] LABS: BLOOD UREA NITROGEN 8 mg/dL (7-21); CALCIUM 9.2 mg/dL (8.4-10.5); GFR AFRICAN-AMERICAN > 60; GFR NON-AFRICAN AMERICAN > 60; INR 0.93 (0.93-1.08); PARTIAL THROMBOPLASTIN TIME 28.8 Seconds (23.7-30.8)
[2017-01-20] MEDS ORDERED: Midazolam 2 MG/2 ML VIAL ONE ×3 (07:19→08:49)
[2017-01-20] MEDS ORDERED: Albuterol-Ipratrop 3 mg / 0.5 (3 ml) UD IH ONE (07:31)
--- NOTE | 2017-01-20 07:50 | CP.SDSHP ---
Same Day Surgery H & P - History Proposed Procedure: mesenteric artry angiogram. Pre-Op Diagnosis: mesenteric artry stenosis.(SMA). - Previous Medical/Surgical History Cardiac: Other Pulmonary: Emphysema/COPD, Smoking Neuro: TIA/CVA, Backaches, Other (hx of syncope.) Misc: Anemia Pain: 2.Mild Pain Previous Surgical History: colonoscope,Lhip orif,ankle #. - Allergies Allergies: Allergies ketorolac [From Toradol] Allergy (Severe, Verified 01/16/17 08:51) ANAPHYLAXIS - Physical Exam General Appearance: WNL. Mental Status: Alert & Oriented x3 Neuro: WNL Heart: WNL Lungs: Other (PT HAS BILATERAL WHEEZES.) GI: WNL - {Optional Preform as Required} Abdomen: Other (pt has tenderness in the lower abdominal region.) Other Pertinent Findings: hx of depression, anxiety. - Impression Impression: SMA.(MESENTERIC ARTRY) STENOSIS.copd. hx of anxiety depression. - Date & Time Date: 01/20/17 Time: 07:43 Short Stay Discharge - Short Stay Discharge Admitting Diagnosis/Reason for Visit: K55.1/R10.817 Disposition: HOME/ ROUTINE Referrals: Temo Peña MD [Primary Care Provider] -
[2017-01-20] MEDS ORDERED: Sodium Chloride 0.45% 1,000 ML IV SCH (09:45)
[2017-01-20] MEDS ORDERED: Albuterol 0.083% Inhal Sol (2.5 mg/3 mL) UD INH SCH (10:00)
--- NOTE | 2017-01-20 10:26 | VASCULAR ---
PROCEDURE: 1. SMA arteriogram 2. Abdominal aortogram 3. SMA origin angioplasty and stent placement HISTORY: Chronic mesenteric ischemia. Weight loss and diarrhea. SMA stenosis. PHYSICIAN(S): Saman Murillo M.D. TECHNIQUE: The relative risks and indications of the procedure were explained to the patient and consent obtained. The patient was hydrated prior to the procedure and the appropriate labs drawn. Given the patient's small aorta and downgoing SMA artery, it was elected to perform the procedure from the left arm. The patient was placed supine on the arteriogram table and the left axilla prepped and draped in the usual sterile fashion. Conscious sedation and monitoring were provided throughout the procedure by a nurse. Under ultrasound guidance, the left axillary artery was punctured with a micropuncture set. A 5 Italian sheath was placed. A 5 Italian flush catheter was placed the abdominal aorta at the level of the mesenteric arteries and PA and DSA aorta grams performed. Exchange is made for 6 Italian 65 cm sheath. A 5 Italian day this catheter was placed the origin of the SMA. A lateral DSA SMA arteriogram was performed. The stenosis at the origin of the SMA was crossed with angled Glidewire. Exchange is made for 0.035 Vasquez support wire. Pull-back pressures were performed through the sheath across the proximal SMA. This revealed 60 mm gradient across the proximal SMA stenosis. Heparin 5000 units IV were given. The proximal SMA was dilated with a 7 mm balloon. Next an 8 mm x 29 mm balloon expandable stent was deployed in the origin of the SMA. Completion angiograms were obtained. The sheath was removed and hemostasis obtained with a Mynx device. The patient tolerated the procedure well P FINDINGS: There is a smooth long stenosis of the origin of the SMA. A 60 mm systolic gradient is demonstrated across the stenosis. Stenosis was successfully treated with 8 mm x 29 mm balloon expandable stent. Celiac axis is patent on two views. The VALORIE is patent with a mild ostial stenosis on the lateral aortogram. The abdominal aorta is calcified but patent. The visualized iliac arteries are patent. IMPRESSION: 1.SMA origin stenosis with a 60 mm systolic gradient. 2. Successful angioplasty and stent placement in the proximal SMA.
[2017-01-20] MEDS: Symbicort 160-4.5 Mcg Inhaler (HOME MED) INH SCH ×2 (11:40→18:35)
[2017-01-20] MEDS: Cefpodoxime (Vantin) 200 mg Tab PO SCH ×2 (11:42→18:38)
[2017-01-20] MEDS: Oxycodone/Acetaminophen 5/325 mg Tab PO PRN ×2 (11:48→15:39)
[2017-01-21 06:29] VITALS: O2SAT 96
[2017-01-21 07:37] LABS: HEMOGLOBIN 8.1 gm/dL (12.0-16.0); MEAN CELL VOLUME 92.8 fL (80.0-105.0); MEAN CORPUSCULAR HGB CONC 31.3 g/dl (31.0-37.0); MEAN PLATELET VOLUME 9.3 fl (7.0-11.0); RBC 2.79 10^6/uL (3.5-6.1); RED CELL DISTRIBUTION WIDTH 20.5 % (11.5-14.5); WHITE BLOOD COUNT 7.5 10^3/ul (4.5-11.0)
[2017-01-21 07:49] LABS: BLOOD UREA NITROGEN 4 mg/dL (7-21); CALCIUM 8.3 mg/dL (8.4-10.5); GFR AFRICAN-AMERICAN > 60; GFR NON-AFRICAN AMERICAN > 60
[2017-01-21] MEDS: Cefpodoxime (Vantin) 200 mg Tab PO SCH (09:07)
[2017-01-21] MEDS: Symbicort 160-4.5 Mcg Inhaler (HOME MED) INH SCH (09:07)
[2017-01-21] MEDS: Oxycodone/Acetaminophen 5/325 mg Tab PO PRN (09:08)
[2017-01-21 11:57] VITALS: BP 123/66; PULSE 84; RESP 16; TEMP 97
[2017-01-21] MEDS ORDERED: Potassium Chloride 40 mEq/30 ml LIQ UD PO ONE (12:36)
[2017-01-21 13:13] LABS: ALBUMIN 3.3 g/dL (3.0-4.8); ALT/SGPT 46 U/L (7-56); AST/SGOT 30 U/L (15-39); BASO # 0.03 K/mm3 (0.0-2.0); BASO % 0.3 % (0.0-3.0); BLOOD UREA NITROGEN 7 mg/dL (7-21); CALCIUM 8.7 mg/dL (8.4-10.5); EOS # 0.1 (0.0-0.7); EOS % 1.5 % (1.5-5.0); GFR AFRICAN-AMERICAN > 60; GFR NON-AFRICAN AMERICAN > 60; GRAN # 6.61 (1.4-6.5); GRAN % 75.5 % (50.0-68.0); HEMOGLOBIN 8.7 gm/dL (12.0-16.0); LYMPH # 1.3 (1.2-3.4); LYMPH % 14.3 % (22.0-35.0); MEAN CELL VOLUME 93.3 fL (80.0-105.0); MEAN CORPUSCULAR HEMOGLOBIN 29.1 pg (25.0-35.0); MEAN CORPUSCULAR HGB CONC 31.2 g/dl (31.0-37.0); MEAN PLATELET VOLUME 9.2 fl (7.0-11.0); MONO # 0.7 (0.1-0.6); MONO % 8.4 % (1.0-6.0); PLATELET COUNT 400 10^3/uL (120.0-450.0); RBC 2.99 10^6/uL (3.5-6.1); RED CELL DISTRIBUTION WIDTH 20.5 % (11.5-14.5); WHITE BLOOD COUNT 8.8 10^3/ul (4.5-11.0)
== END 2017-01-21 14:01 | disposition home or self-care (01) ==
LOC: SDSVAS 06:21 → 2RSO 10:30 → SDSVAS 01-21 14:01
PROVIDERS: ATTEND Radiology Vascular & Interventional Radiology
DX: K55.1 Chronic vascular disorders of intestine (principal); J44.9 Chronic obstructive pulmonary disease, unspecified; F32.9 Major depressive disorder, single episode, unspecified; F41.9 Anxiety disorder, unspecified; D64.9 Anemia, unspecified; R63.4 Abnormal weight loss; Z68.1 Body mass index [BMI] 19.9 or less, adult
CPT/HCPCS: 36245; 36415 ×2; 37236; 75726; 80048; 80053; 85025 ×2; 85027; 85610; 85730; 94640; 99152; 99153; C1725; C1760; C1769 ×4; C1876; C1887 ×3; C1894 ×2; J0690; J0694 ×2; J1644 ×2; J2250; J2405; J3010; J3480; J7030; Q9967

== ENCOUNTER 2017-02-04 11:54 | Emergency (ER) | payer MEDICARE, MEDICAID ==
[2017-02-04 11:55] VITALS: BMI 16.8
[2017-02-04 12:21] VITALS: TEMP 98.9
[2017-02-04] MEDS ORDERED: Famotidine 20mg/50ml 20 MG/50 ML BAG IVPB STA (12:27)
[2017-02-04] MEDS ORDERED: Morphine 2 mg/ml ISec IVP STA (12:27)
[2017-02-04] MEDS ORDERED: Sodium Chloride 0.9% 1,000 ML IV SCH (12:30)
--- NOTE | 2017-02-04 12:46 | ED PDOC ---
Arrival/HPI - General Chief Complaint: Abdominal Pain Time Seen by Provider: 02/04/17 12:06 Historian: Patient - History of Present Illness Narrative History of Present Illness (Text): 02/04/17 12:13 A 71 year old female, whose past medical history includes COPD, left hip surgery , and artery blockage, presents to the emergency department complaining of abdominal pain for 4 days. Patient reports having left hip surgery on 2016. Few days later began experiencing abdominal pain. Patient mentions vomiting yesterday and has been unable to eat since then. Patient notes watery diarrhea every time, but denies of hematochezia, urinary changes, or any other complaints. PMD: Dr. Bach General Surgeon: Dr. Murillo Time/Duration: Other (4 days) Symptom Onset: Sudden Symptom Course: Unchanged Activities at Onset: Rest, Light Context: Home Past Medical History - Provider Review Nursing Documentation Reviewed: Yes - Cardiac Hx Cardiac Disorders: No Hx Pacemaker: No - Pulmonary Hx Respiratory Disorders: Yes Hx Chronic Obstructive Pulmonary Disease (COPD): Yes - Neurological Hx Neurological Disorder: No Hx Paralysis: No - HEENT Hx HEENT Disorder: No - Renal Hx Renal Disorder: No - Endocrine/Metabolic Hx Endocrine Disorders: No - Hematological/Oncological Hx Blood Transfusions: No - Integumentary Hx Dermatological Disorder: No - Musculoskeletal/Rheumatological Hx Musculoskeletal Disorders: No - Gastrointestinal Hx Gastrointestinal Disorders: No - Genitourinary/Gynecological Hx Genitourinary Disorders: No - Psychiatric Hx Psychophysiologic Disorder: No Hx Anxiety: No Hx Emotional Abuse: No Hx Physical Abuse: No Hx Substance Use: No - Surgical History Hx Joint Replacement: Yes (left hip) Hx Orthopedic Surgery: Yes - Anesthesia Hx Anesthesia Reactions: No Hx Malignant Hyperthermia: No - Suicidal Assessment Feels Threatened In Home Enviroment: No Family/Social History - Physician Review Nursing Documentation Reviewed: Yes Family/Social History: No Known Family HX Smoking Status: Light Smoker < 10 Cigarettes Daily Hx Alcohol Use: No Hx Substance Use: No Allergies/Home Meds Allergies/Adverse Reactions: Allergies ketorolac [From Toradol] Allergy (Severe, Verified 02/04/17 12:21) ANAPHYLAXIS Review of Systems - Physician Review All systems were reviewed & negative as marked: Yes - Review of Systems Constitutional: absent: Fevers, Night Sweats Gastrointestinal: Abdominal Pain, Diarrhea (watery every time), Vomiting ( yesterday), Appetite Changes (unable to eat due to vomiting yesterday). absent : Stool Changes, Nausea, Hematochezia Neurological: absent: Headache, Dizziness Physical Exam Vital Signs Reviewed: Yes Vital Signs Temp Pulse Resp BP Pulse Ox 02/04/17 15:30 71 18 142/72 98 02/04/17 12:21 98.9 F 86 15 140/76 98 Temperature: Afebrile Blood Pressure: Normal Pulse: Regular Respiratory Rate: Normal Appearance: Positive for: Well-Appearing Pain Distress: None Mental Status: Positive for: Alert and Oriented X 3 - Systems Exam Head: Present: Atraumatic, Normocephalic Pupils: Present: PERRL Extroacular Muscles: Present: EOMI Conjunctiva: Present: Normal Mouth: Present: Moist Mucous Membranes Neck: Present: Normal Range of Motion Respiratory/Chest: Present: Clear to Auscultation, Good Air Exchange. No: Respiratory Distress, Accessory Muscle Use Cardiovascular: Present: Regular Rate and Rhythm, Normal S1, S2. No: Murmurs Abdomen: Present: Guarding, Other (diffused abdomen). No: Rebound Back: Present: Normal Inspection Upper Extremity: Present: Normal Inspection. No: Cyanosis, Edema Lower Extremity: Present: Normal Inspection. No: Edema Neurological: Present: GCS=15, CN II-XII Intact, Speech Normal Skin: Present: Warm, Dry, Normal Color. No: Rashes Psychiatric: Present: Alert, Oriented x 3, Normal Insight, Normal Concentration Medical Decision Making ED Course and Treatment: 02/04/17 12:20 Impression: 71 year old female with abdominal pain. Physical exam shows diffused abdomen with guarding, no rebound. Differential Diagnosis included but are not limited to: SMA occlusion vs. Colitis Plan: -- Abdomen CT -- Labs -- Morphine -- Pepcid -- IV Fluids -- Urinalysis -- Reassess and disposition Prior Visits: Notes and results from previous visits were reviewed. Patient was last seen in the emergency department on 01/10/2017 complaining of epigastric pain. Patient was admitted. Progress Notes: 02/04/17 16:49 Accession No. : [id number] Patient Name / ID : ROHINI SUN / [id number] Exam Date : 02/04/2017 14:37:15 ( Approved ) Study Comment : Sex / Age : F / 71Y Creator : Davon Perez MD PROCEDURE: CT Abdomen and Pelvis with contrast IMPRESSION: No acute findings. Patent SMA 4:50 - Patient no longer has pain. Her abdomen is soft and not tender. She is tolerating PO fluids. She wants to go home. She states that she can follow up with her PMD as an outpatient. She was offered admission for GI evaluation but she does not want to stay. - Lab Interpretations Lab Results: 02/04/17 12:40 02/04/17 12:40 Lab Results 02/04/17 12:40: Sodium 141, Potassium 3.2 L, Chloride 103, Carbon Dioxide 24, Anion Gap 17, BUN 14, Creatinine 0.6, Est GFR ( Amer) > 60, Est GFR (Non- Af Amer) > 60, Random Glucose 103, Calcium 10.0, Total Bilirubin 0.7, AST 21, ALT 20, Alkaline Phosphatase 130, Total Protein 8.4 H, Albumin 4.6, Globulin 3.8 , Albumin/Globulin Ratio 1.2, Lipase 40 02/04/17 12:40: PT 11.4, INR 1.06, APTT 26.6 02/04/17 12:40: WBC 8.3, RBC 4.20, Hgb 13.4, Hct 40.3, MCV 96.0, MCH 31.9, MCHC 33.3, RDW 21.0 H, Plt Count 549 H, MPV 9.7, Gran % 71.1 H, Lymph % (Auto) 16.2 L , [place] % (Auto) 8.3 H, Eos % (Auto) 3.8, Baso % (Auto) 0.6, Gran # 5.92, Lymph # 1.4, [place] # 0.7 H, Eos # 0.3, Baso # 0.05 I have reviewed the lab results: Yes - RAD Interpretation Radiology Orders: 02/04/17 14:35 ABD & PELVIS IV CONTRAST ONLY [CT] Stat - Medication Orders Current Medication Orders: Sodium Chloride (Sodium Chloride 0.9%) 1,000 mls @ 100 mls/hr IV .Q10H ORI Last Admin: 02/04/17 12:42 Dose: 100 mls/hr Discontinued Medications Famotidine (Pepcid 20mg/50ml Premix) 20 mg in 50 mls @ 100 mls/hr IVPB STAT STA Stop: 02/04/17 12:56 Last Admin: 02/04/17 12:41 Dose: 100 mls/hr Iodixanol (Visipaque) Confirm Administered Dose 150 ml IV .STK-MED ONE Stop: 02/04/17 13:37 Iohexol (Omnipaque 350 100 Ml) Confirm Administered Dose 350 mg .ROUTE .STK-MED ONE Stop: 02/04/17 14:34 Morphine Sulfate (Morphine) 2 mg IVP STAT STA Stop: 02/04/17 12:28 Last Admin: 02/04/17 12:41 Dose: 2 mg Morphine Sulfate (Morphine) 4 mg IVP STAT STA Stop: 02/04/17 14:33 Last Admin: 02/04/17 15:27 Dose: 4 mg Potassium Chloride (K-Dur 20 Meq Er Tab) 40 meq PO STAT STA Stop: 02/04/17 14:41 Last Admin: 02/04/17 15:27 Dose: 40 meq - Scribe Statement The provider has reviewed the documentation as recorded by the Cely Chapman Provider Scribe Attestation: All medical record entries made by the Alexibsaima were at my direction and personally dictated by me. I have reviewed the chart and agree that the record accurately reflects my personal performance of the history, physical exam, medical decision making, and the department course for this patient. I have also personally directed, reviewed, and agree with the discharge instructions and disposition. Disposition/Present on Arrival - Present on Arrival Any Indicators Present on Arrival: No History of DVT/PE: No History of Uncontrolled Diabetes: No Urinary Catheter: No History of Decub. Ulcer: No History Surgical Site Infection Following: None - Disposition Have Diagnosis and Disposition been Completed?: Yes Diagnosis: Abdominal pain Disposition: HOME/ ROUTINE Disposition Time: 16:51 Patient Plan: Discharge Patient Problems: Current Active Problems Problem Status Onset Abdominal pain Acute Condition: IMPROVED Discharge Instructions (ExitCare): Abdominal Pain (ED) Additional Instructions: Ms Denis, thank you for letting us take care of you today. Your provider was Dr. Dillon. You were treated for Abdominal Pain. The emergency medical care you received today was directed at your acute symptoms. If you were prescribed any medication, please fill it and take as directed. It may take several days for your symptoms to resolve. Return to the Emergency Department if your symptoms worsen, do not improve, or if you have any other problems. Please contact your doctor or call one of the physicians/clinics you have been referred to that are listed on the Patient Visit Information form that is included in your discharge packet. Bring any paperwork you were given at discharge with you along with any medications you are taking to your follow up visit. Our treatment cannot replace ongoing medical care by a primary care provider (PCP) outside of the emergency department. Thank you for allowing the [facility] team to be part of your care today. If you had an X-Ray or CT scan: A Radiologist will review the ED reading if any change in treatment is needed we will contact you. If you had a blood, urine, or wound culture: It will take several days for the results, if any change in treatment is needed we will contact you. If you had an STI test: It will take 48 hours for the results. Please call after 1 week if you have not heard back. Prescriptions: Ranitidine HCl [Zantac] 150 mg PO BID PRN #30 tablet PRN Reason: Pain, Mild (1-3) Referrals: [facility], [Non-Staff] - Follow up with primary Forms: [employer] ([place])
[2017-02-04 13:19] LABS: BASO # 0.05 K/mm3 (0.0-2.0); BASO % 0.6 % (0.0-3.0); EOS # 0.3 (0.0-0.7); EOS % 3.8 % (1.5-5.0); GRAN # 5.92 (1.4-6.5); GRAN % 71.1 % (50.0-68.0); HEMOGLOBIN 13.4 g/dL (12.0-16.0); LYMPH # 1.4 (1.2-3.4); LYMPH % 16.2 % (22.0-35.0); MEAN CORPUSCULAR HEMOGLOBIN 31.9 pg (25.0-35.0); MEAN CORPUSCULAR HGB CONC 33.3 g/dl (31.0-37.0); MEAN PLATELET VOLUME 9.7 fl (7.0-11.0); MONO # 0.7 (0.1-0.6); MONO % 8.3 % (1.0-6.0); PLATELET COUNT 549 10^3/uL (120.0-450.0); WHITE BLOOD COUNT 8.3 10^3/ul (4.5-11.0)
[2017-02-04 13:30] LABS: INR 1.06 (0.93-1.08); PARTIAL THROMBOPLASTIN TIME 26.6 Seconds (23.7-30.8); PROTHROMBIN TIME 11.4 Seconds (9.9-11.8)
[2017-02-04 13:31] LABS: ALB/GLOB RATIO 1.2 (1.1-1.8); ALBUMIN 4.6 g/dL (3.0-4.8); ALT/SGPT 20 U/L (7-56); AST/SGOT 21 U/L (15-39); BLOOD UREA NITROGEN 14 mg/dL (7-21); GFR AFRICAN-AMERICAN > 60; GFR NON-AFRICAN AMERICAN > 60; LIPASE 40 U/L (23-300)
[2017-02-04] MEDS ORDERED: Iodixanol 320 mg/ml 150 ml Bottle IV ONE (13:36)
[2017-02-04] MEDS ORDERED: Morphine 4 mg/ml ISec IVP STA (14:32)
[2017-02-04] MEDS ORDERED: Iohexol 350 MG/100 ML VIAL ONE (14:33)
[2017-02-04] MEDS ORDERED: Potassium Chloride 20 mEq ER Tab PO STA (14:40)
[2017-02-04 15:48] VITALS: RESP 18
[2017-02-04 17:04] VITALS: BP 137/76; PULSE 76; O2SAT 99
--- NOTE | 2017-02-05 20:25 | CT ---
PROCEDURE: CT Abdomen and Pelvis with contrast HISTORY: Rule out mesenteric ischemia COMPARISON: 01/10/2017 TECHNIQUE: Contrast dose: 100 cc of Omni 350 Radiation dose: Total exam DLP = 175 mGy-cm. This CT exam was performed using one or more of the following dose reduction techniques: Automated exposure control, adjustment of the mA and/or kV according to patient size, and/or use of iterative reconstruction technique. FINDINGS: LOWER THORAX: Unremarkable. LIVER: Unremarkable. No gross lesion or ductal dilatation. GALLBLADDER AND BILE DUCTS: Unremarkable. PANCREAS: Unremarkable. No gross lesion or ductal dilatation. SPLEEN: Unremarkable. ADRENALS: Unremarkable. No mass. KIDNEYS AND URETERS: Unremarkable. No hydronephrosis. No solid mass. VASCULATURE: There is a vascular stent in the proximal superior mesenteric artery. This measures 26 mm in length. There is normal contrast enhancement within the lumen. There is no evidence of thrombus. There is no evidence of bowel ischemia. There is no pneumatosis or free air. There is normal venous enhancement BOWEL: Unremarkable. No obstruction. No gross mural thickening. APPENDIX: Normal appendix. PERITONEUM: Unremarkable. No free fluid. No free air. LYMPH NODES: Unremarkable. No enlarged lymph nodes. BLADDER: Unremarkable. REPRODUCTIVE: Unremarkable. BONES: No acute fracture. OTHER FINDINGS: None. IMPRESSION: No acute findings. Patent SMA
== END 2017-02-04 17:04 | disposition home or self-care (01) ==
LOC: ED 11:54
DX: R10.9 Unspecified abdominal pain (principal)
CPT/HCPCS: 74177; 80053; 83690; 85025; 85610; 85730; 96374; 96375; 96376; 99283; J2270; J7040; Q9967

== ENCOUNTER 2017-02-21 16:39 | Emergency (ER) | payer MEDICARE, MEDICAID ==
[2017-02-21 16:48] VITALS: RESP 18; TEMP 98.5
[2017-02-21 16:52] VITALS: BMI 22.7
[2017-02-21] MEDS ORDERED: Morphine 4 mg/ml ISec IVP STA (17:04)
--- NOTE | 2017-02-21 17:04 | ED PDOC ---
Arrival/HPI - General Time Seen by Provider: 02/21/17 16:47 Historian: Patient - History of Present Illness Narrative History of Present Illness (Text): 02/21/17 16:53 71 y/o female, pmh including copd, allergic to toradol? but takes aspirin 81mg po daily at home except today, c/o rt. wrist pain and drop x 1 week with no fall or trauma. Pt. stated that she has rt. wrist pain started 02/14/2017 with numbness after waking up from the sleep around 1pm. Pt. stated that she is unable to move the rt. wrist since with the rt. wrist dropped, been having numbness and tingling on the rt. hand 3/4/5th digits, no chest pain or shortness of breath, no slurred speech, no rash, no palpitation, no chest pain or other medical/psychological complaints. Past Medical History - Provider Review Nursing Documentation Reviewed: Yes - Cardiac Hx Cardiac Disorders: No Hx Pacemaker: No - Pulmonary Hx Respiratory Disorders: Yes Hx Chronic Obstructive Pulmonary Disease (COPD): Yes - Neurological Hx Neurological Disorder: No Hx Paralysis: No - HEENT Hx HEENT Disorder: No - Renal Hx Renal Disorder: No - Endocrine/Metabolic Hx Endocrine Disorders: No - Hematological/Oncological Hx Blood Transfusions: No - Integumentary Hx Dermatological Disorder: No - Musculoskeletal/Rheumatological Hx Musculoskeletal Disorders: No - Gastrointestinal Hx Gastrointestinal Disorders: No - Genitourinary/Gynecological Hx Genitourinary Disorders: No - Psychiatric Hx Psychophysiologic Disorder: No Hx Anxiety: No Hx Emotional Abuse: No Hx Physical Abuse: No Hx Substance Use: No - Surgical History Hx Joint Replacement: Yes (left hip) Hx Orthopedic Surgery: Yes - Anesthesia Hx Anesthesia Reactions: No Hx Malignant Hyperthermia: No - Suicidal Assessment Feels Threatened In Home Enviroment: No Family/Social History - Physician Review Nursing Documentation Reviewed: Yes Family/Social History: Unknown Family HX Smoking Status: Light Smoker < 10 Cigarettes Daily Hx Alcohol Use: No Hx Substance Use: No Allergies/Home Meds Allergies/Adverse Reactions: Allergies ketorolac [From Toradol] Allergy (Severe, Verified 02/21/17 17:09) ANAPHYLAXIS Home Medications: Home Meds Medication Instructions Recorded Confirmed Ferrous Sulfate [Ferosul] 325 mg PO DAILY 02/21/17 02/21/17 Furosemide [Lasix] 20 mg PO DAILY 02/21/17 02/21/17 Potassium Chloride in 0.9%NaCl 20 meq PO DAILY 02/21/17 02/21/17 [Potassium Cl 20 Meq/250 ml-Ns] Review of Systems - Review of Systems Constitutional: absent: Fatigue, Fevers Eyes: absent: Vision Changes ENT: absent: Hearing Changes Respiratory: absent: SOB, Cough Cardiovascular: absent: Chest Pain Gastrointestinal: absent: Abdominal Pain, Nausea, Vomiting Skin: absent: Rash, Pruritis, Skin Lesions Neurological: Focal Weakness. absent: Headache, Dizziness, Gait Changes, Speech Changes, Facial Droop Physical Exam Vital Signs Reviewed: Yes Vital Signs Temp Pulse Resp BP Pulse Ox 02/21/17 19:00 77 18 133/70 98 02/21/17 16:46 98.5 F 104 H 18 117/72 96 Temperature: Afebrile Blood Pressure: Normal Pulse: Tachycardic Respiratory Rate: Normal Appearance: Positive for: Well-Appearing, Non-Toxic Pain Distress: Moderate Mental Status: Positive for: Alert and Oriented X 3 - Systems Exam Head: Present: Atraumatic, Normocephalic Pupils: Present: PERRL Extroacular Muscles: Present: EOMI Conjunctiva: Present: Normal Mouth: Present: Moist Mucous Membranes Neck: Present: Normal Range of Motion Respiratory/Chest: Present: Clear to Auscultation, Good Air Exchange. No: Respiratory Distress, Accessory Muscle Use Cardiovascular: Present: Regular Rate and Rhythm, Normal S1, S2. No: Murmurs Abdomen: Present: Normal Bowel Sounds. No: Tenderness, Distention, Peritoneal Signs Back: Present: Normal Inspection Upper Extremity: Present: Normal Inspection, Other (RUE: +rt. wrist drop with unable to rt. wrist extension, able to move the 5 digits with mild flexion and extension against resistance, +atrophy noted on the RUE, sensation intact, motor 5/5 (except rt. wrist/5 digits), +radial pulse, subjective decreased sensation on rt. hand 5 digits, capillary refill< 2 seconds, neurovascular intact. ). No: Cyanosis, Edema Lower Extremity: Present: Normal Inspection. No: Edema Neurological: Present: GCS=15, Speech Normal, Motor Func Grossly Intact, Gait Normal, Memory Normal Skin: Present: Warm, Dry, Normal Color. No: Rashes Psychiatric: Present: Alert, Oriented x 3, Normal Insight, Normal Concentration Medical Decision Making ED Course and Treatment: 02/21/17 17:18 -labs/ua -CT head/cxr/RUE venuous doppler -ekg -IVF/morphine/aspirin -NIHSS: 3 -Observe and reassess 02/21/17 20:01 -EKG: NSR @ 86 BPM, no ST elevation or depression, no T wave inversion. -CT head: No acute intracranial hemorrhage. Moderate to significant confluent chronic white matter ischemic changes. Presumed posttraumatic encephalomalacia changes left inferior frontal pole and left inferior temporal lobes. Moderate to significant atrophy. Aspirin 325mg po ordered. -Chest xray: no active disease -RUE: as per preliminary report, no acute DVT -Labs are non-significant except potassium 3.4, potassium chloride 20meq po ordered. -Splint applied for supportive treatment, percocet ordered for additional pain. -I advised the patient to be admitted for further evaluation but she refused. AMA ER The patient refuses to stay in the Emergency Room (ER) to continue the care and wishes to leave the emergency department against my medical advice. Patient was told that staying in the ER is necessary and a full explanation of the reasons why was given, and understood by the patient with alert and oriented x4. The risk of leaving were explained in laymans term and including but not limited to stroke, transient ischemic events, disability, temporary or permanent neurological and nerve injury, psychiatric disease, pain, worsening of condition, permanent disability and from an undiagnosed or untreated condition. The patient accepts these risks, and is in my judgment is competent and capable of understanding the clinical situation and explanation of the risk of leaving. Patient was given the opportunity to ask questions and change mind. The patient was instructed regarding the best care for the present symptoms, and to follow up as soon as possible with the primary care doctor including specialist or return to the emergency department at an y time for continuing care. YOU SIGN OUT AGAINST MEDICAL ADVISE. YOU ARE ADVISED TO BE ADMITTED BUT YOU REFUSED. YOU NEED TO FOLLOW UP WITH YOUR OWN PMD AND NEUROLOGIST/HAND SPECIALIST SOON POSSIBLE, TAKE TYLENOL FOR PAIN NEEDED, RETURN TO THE ER FOR ANY NEW OR WORSENING SIGNS OR SYMPTOMS INCLUDING ANY CONTINUE OF THE CARE. - Lab Interpretations Lab Results: 02/21/17 18:30 02/21/17 18:30 Lab Results 02/21/17 18:30: Sodium 145, Potassium 3.4 L, Chloride 107, Carbon Dioxide 25, Anion Gap 16, BUN 8, Creatinine 0.6, Est GFR ( Amer) > 60, Est GFR (Non- Af Amer) > 60, Random Glucose 93, Calcium 9.5, Total Bilirubin 0.4, AST 29, ALT 24, Alkaline Phosphatase 118, Lactate Dehydrogenase 470, Total Creatine Kinase 30 L, Troponin I < 0.01, Total Protein 7.5, Albumin 4.2, Globulin 3.3, Albumin/ Globulin Ratio 1.3 02/21/17 18:30: WBC 9.3, RBC 4.19, Hgb 13.5, Hct 41.4, MCV 98.8, MCH 32.2, MCHC 32.6, RDW 19.4 H, Plt Count 381, MPV 9.8, Gran % 75.8 H, Lymph % (Auto) 14.3 L, [place] % (Auto) 7.8 H, Eos % (Auto) 1.8, Baso % (Auto) 0.3, Gran # 7.04 H, Lymph # 1.3, [place] # 0.7 H, Eos # 0.2, Baso # 0.03 I have reviewed the lab results: Yes Interpretation: Abnormal lab values (K+ 3.4) - RAD Interpretation Radiology Orders: 02/21/17 17:04 HEAD W/O CONTRAST [CT] Stat CHEST ONE VIEW [RAD] Stat 02/21/17 17:06 DUPLEX UPPER EXTRM VEIN RIGHT [US] Stat CT Head: PROCEDURE: CT HEAD WITHOUT CONTRAST. HISTORY: rt. wrist drop x 1 week COMPARISON: None available. TECHNIQUE: Axial computed tomography images were obtained through the head/brain without intravenous contrast. Radiation dose: Total exam DLP = 677.45 mGy-cm. This CT exam was performed using one or more of the following dose reduction techniques: Automated exposure control, adjustment of the mA and/or kV according to patient size, and/or use of iterative reconstruction technique. FINDINGS: HEMORRHAGE: No acute parenchymal, subarachnoid or extra-axial hemorrhage. BRAIN: Moderate -significant diffuse/confluent chronic white matter ischemic changes seen extending peripherally into the deep and subcortical white matter both cerebral hemispheres. In addition, there is a more localized encephalomalacia changes left inferior frontal pole as well as left inferior temporal lobe that most likely represent sequela of old trauma given its appearance and location. Scattered chronic bilateral basal nuclei lacunar type infarcts also felt to be present. Moderate to significant atrophy. . VENTRICLES: No obstructive hydrocephalus CALVARIUM: No acute calvarial fractures. PARANASAL SINUSES: Paranasal sinuses well-developed. No fluid levels seen to suggest acute sinusitis. On mucosal thickening right chamber sphenoid sinus. Minimal mucosal thickening seen within few ethmoid air cells. . MASTOID AIR CELLS: Mastoid air complexes also well-developed and well-aerated. OTHER FINDINGS: None. IMPRESSION: No acute intracranial hemorrhage. Moderate to significant confluent chronic white matter ischemic changes. Presumed posttraumatic encephalomalacia changes left inferior frontal pole and left inferior temporal lobes. Moderate to significant atrophy. RUE Venuous Doppler: as per preliminary, no acute DVT Chest xray: Offset Duplicating Machine Operator: Radiologist - EKG Interpretation EKG Interpretation (Text): 02/21/17 17:19 EKG: NSR @ 86 BPM, no ST elevation or depression, no T wave inversion. Interpreted by ED Physician: Yes Type: 12 lead EKG - Medication Orders Current Medication Orders: Discontinued Medications Aspirin (Aspirin) 325 mg PO STAT STA Stop: 02/21/17 18:54 Last Admin: 02/21/17 20:23 Dose: Not Given Non-Admin Reason: Patient Refused Sodium Chloride (Sodium Chloride 0.9%) 1,000 mls @ 100 mls/hr IV .Q10H [facility] Last Admin: 02/21/17 17:46 Dose: 100 mls/hr Morphine Sulfate (Morphine) 4 mg IVP STAT STA Stop: 02/21/17 17:05 Last Admin: 02/21/17 17:43 Dose: 4 mg Re-Assess: PREETI Pain Assessment Document 02/21/17 18:43 OCS (Rec: 02/21/17 20:25 OCS [facility] [id number]) Pain Reassessment Is this a pain reassessment? Yes Sleep Is patient sleeping during reassessment? No Presence of Pain Presence of Pain Yes Pain Scale Used Pain Scale Used Numeric Location Left, Right or Bilateral Right Pain Location Body Site Hand Description Description Constant Intensity of Pain at present 8 Oxycodone/Acetaminophen (Percocet 5/325 Mg Tab) 1 tab PO STAT STA Stop: 02/21/17 20:01 Last Admin: 02/21/17 20:24 Dose: 1 tab Potassium Chloride (K-Dur 20 Meq Er Tab) 20 meq PO STAT STA Stop: 02/21/17 20:01 Last Admin: 02/21/17 20:24 Dose: Not Given Non-Admin Reason: Patient Refused NIHSS Scale ([place]) Time Performed: 17:19 - How Severe is the Stoke Baseline Level of Consciousness: 0=Alert LOC to Questions: 0=Both comments correct LOC to commands: 0=Obeys both correctly Best Gaze: 0=Normal Visual: 0=No visual loss Facial: 0=Normal Motor Arm - Left: 0=No drift Motor Arm - Right: 3=No effort against gravity (falls immediately) (rt. wrist) Motor Leg - Left: 0=No drift Motor Leg - Right: 0=No drift Limb Ataxia: 0=Absent Sensory: 0=Normal Best Language: 0=No aphasia Dysarthia: 0=Normal articulation Extinction & Inattention (Neglect): 0=Normal, no object Score: 3 Risk Level: Minor Stroke Risk rTPA Inclusion/Exclusion - Refusal of Treatment Patient Refused Treatment: Yes - Inclusion Criteria for Altepase Patient is 18 years or Older: Yes The Clinical Diagnosis of Ischemic Stroke That is Causing a Potentially Disabling Neurological Deficit: Yes Time of Onset is Well Established to be Less Than 270 Minute Before Treatment Would Begin: No Risk/Benefit Discussed With Patient/Family Member Present: No - Exclusion Criteria for Altepase Uncontrolled Hypertension at Time of Treatment (Systolic BP above 185 or Diastolic BP above 110 mmHg): No Active Internal Bleeding: No Known Bleeding Diathesis Including but Not Limited to: Platelets Below 100,000/ mm,PTT Above 40 sec After Heparin Use, Current Use of Oral Anitcoagulant With INR Greater Than 1.7 or PT Greater Than 15 secs: No Evidence of an Intracranial Hemorrhage: No Suspicion of Subarachnoid Hemorrhage on Pretreatment Evaluation Even if CT Head Negative For Hemorrhage: No Disposition/Present on Arrival - Present on Arrival Any Indicators Present on Arrival: No History of DVT/PE: No History of Uncontrolled Diabetes: No Urinary Catheter: No History of Decub. Ulcer: No History Surgical Site Infection Following: None - Disposition Have Diagnosis and Disposition been Completed?: Yes Diagnosis: Hypokalemia, Wrist drop Disposition: AGAINST MEDICAL ADVICE Disposition Time: 20:03 Condition: STABLE Additional Instructions: YOU SIGN OUT AGAINST MEDICAL ADVISE. YOU ARE ADVISED TO BE ADMITTED BUT YOU REFUSED. YOU NEED TO FOLLOW UP WITH YOUR OWN PMD AND NEUROLOGIST/HAND SPECIALIST SOON POSSIBLE, TAKE TYLENOL FOR PAIN NEEDED, RETURN TO THE ER FOR ANY NEW OR WORSENING SIGNS OR SYMPTOMS INCLUDING ANY CONTINUE OF THE CARE. Referrals: Temo Peña MD [Primary Care Provider] - Follow up with primary Bong Vazquez MD [Staff Provider] - Follow up with primary Duane Perkins MD [Staff Provider] - Follow up with primary Forms: WORK NOTE
[2017-02-21] MEDS ORDERED: Sodium Chloride 0.9% 1,000 ML IV SCH (17:15)
--- NOTE | 2017-02-21 18:07 | CT ---
PROCEDURE: CT HEAD WITHOUT CONTRAST. HISTORY: rt. wrist drop x 1 week COMPARISON: None available. TECHNIQUE: Axial computed tomography images were obtained through the head/brain without intravenous contrast. Radiation dose: Total exam DLP = 677.45 mGy-cm. This CT exam was performed using one or more of the following dose reduction techniques: Automated exposure control, adjustment of the mA and/or kV according to patient size, and/or use of iterative reconstruction technique. FINDINGS: HEMORRHAGE: No acute parenchymal, subarachnoid or extra-axial hemorrhage. BRAIN: Moderate -significant diffuse/confluent chronic white matter ischemic changes seen extending peripherally into the deep and subcortical white matter both cerebral hemispheres. In addition, there is a more localized encephalomalacia changes left inferior frontal pole as well as left inferior temporal lobe that most likely represent sequela of old trauma given its appearance and location. Scattered chronic bilateral basal nuclei lacunar type infarcts also felt to be present. Moderate to significant atrophy. . VENTRICLES: No obstructive hydrocephalus CALVARIUM: No acute calvarial fractures. PARANASAL SINUSES: Paranasal sinuses well-developed. No fluid levels seen to suggest acute sinusitis. On mucosal thickening right chamber sphenoid sinus. Minimal mucosal thickening seen within few ethmoid air cells. . MASTOID AIR CELLS: Mastoid air complexes also well-developed and well-aerated. OTHER FINDINGS: None. IMPRESSION: No acute intracranial hemorrhage. Moderate to significant confluent chronic white matter ischemic changes. Presumed posttraumatic encephalomalacia changes left inferior frontal pole and left inferior temporal lobes. Moderate to significant atrophy.
[2017-02-21 18:59] LABS: BASO # 0.03 K/mm3 (0.0-2.0); BASO % 0.3 % (0.0-3.0); EOS # 0.2 (0.0-0.7); EOS % 1.8 % (1.5-5.0); GRAN # 7.04 (1.4-6.5); GRAN % 75.8 % (50.0-68.0); HEMATOCRIT 41.4 % (36.0-48.0); LYMPH # 1.3 (1.2-3.4); LYMPH % 14.3 % (22.0-35.0); MEAN CELL VOLUME 98.8 fl (80.0-105.0); MEAN CORPUSCULAR HEMOGLOBIN 32.2 pg (25.0-35.0); MEAN CORPUSCULAR HGB CONC 32.6 g/dl (31.0-37.0); MEAN PLATELET VOLUME 9.8 fl (7.0-11.0); MONO # 0.7 (0.1-0.6); MONO % 7.8 % (1.0-6.0); RED CELL DISTRIBUTION WIDTH 19.4 % (11.5-14.5); WHITE BLOOD COUNT 9.3 10^3/ul (4.5-11.0)
[2017-02-21 19:26] LABS: ALB/GLOB RATIO 1.3 (1.1-1.8); ALKALINE PHOSPHATASE 118 U/L (38-133); ALT/SGPT 24 U/L (7-56); AST/SGOT 29 U/L (15-39); BILIRUBIN,TOTAL 0.4 mg/dL (0.2-1.3); BLOOD UREA NITROGEN 8 mg/dL (7-21); CALCIUM 9.5 mg/dL (8.4-10.5); CARBON DIOXIDE 25 mmol/L (21-33); CHLORIDE 107 mmol/L (98-107); GFR AFRICAN-AMERICAN > 60; GLUCOSE,RANDOM 93 mg/dL (70-110); POTASSIUM 3.4 mmol/L (3.6-5.0); SODIUM 145 mmol/L (132-148); TOTAL PROTEIN 7.5 g/dL (5.8-8.3)
[2017-02-21 19:43] LABS: TROPONIN I < 0.01 ng/mL
[2017-02-21] MEDS ORDERED: Potassium Chloride 20 mEq ER Tab PO STA (20:00)
[2017-02-21] MEDS ORDERED: Oxycodone/Acetaminophen 5/325 mg Tab PO STA (20:00)
[2017-02-21 21:02] VITALS: BP 133/70; PULSE 77; O2SAT 98
--- NOTE | 2017-02-22 13:21 | US ---
PROCEDURE: Right upper extremity venous US CLINICAL HISTORY: Arm pain and swelling Evaluate for deep venous thrombosis. PHYSICIAN(S): Saman Murillo M.D FINDINGS: The visualized rightinternal jugular vein is sonographically normal and compressible. No evidence of obstruction or thrombus is seen. The visualized segments of the right subclavian vein are patent with normal waveforms. No sonographic evidence of obstruction or thrombosis is seen. The visualized deep venous system of the proximal right upper extremity is sonographically normal and compressible. IMPRESSION: 1. No sonographic evidence for deep venous thrombosis in the visualized segments of the right upper extremity.
--- NOTE | 2017-02-22 13:43 | RAD ---
PROCEDURE: CHEST RADIOGRAPH, 1 VIEW HISTORY: medical clearance COMPARISON: None available. FINDINGS: LUNGS: Mild partially calcified biapical pleural thickening left greater than right additionally, there also appears to be mild upper lobe fibrosis. The interstitial markings are slightly increased and coarsened ; rule out mild chronic sequela of reactive and or inflammatory airway disease. No focal consolidation. PLEURA: No pneumothorax or pleural fluid seen. CARDIOVASCULAR: Normal. OSSEOUS STRUCTURES: Re- demonstrated is ACDF plate lower cervical spine VISUALIZED UPPER ABDOMEN: Normal. OTHER FINDINGS: None. IMPRESSION: Mild partially calcified biapical pleural thickening left greater than right additionally, there also appears to be mild upper lobe fibrosis. The interstitial markings are slightly increased and coarsened ; rule out mild chronic sequela of reactive and or inflammatory airway disease. No focal consolidation.
--- NOTE | 2017-02-22 21:14 | CARD ---
APPROVED REPORT EKG Measurement Heart [id number] <Conclusion> Normal sinus rhythm Possible Left atrial enlargement Borderline ECG
== END 2017-02-21 20:06 | disposition left against medical advice (07) ==
LOC: ED 16:39
DX: M21.331 Wrist drop, right wrist (principal); E87.6 Hypokalemia; J44.9 Chronic obstructive pulmonary disease, unspecified; F17.210 Nicotine dependence, cigarettes, uncomplicated
CPT/HCPCS: 70450; 71010; 80053; 82550; 83615; 84484; 85025; 93005; 93971; 96374; 99284; J2270; J7040

== ENCOUNTER 2017-04-03 15:31 | Inpatient (IN) | payer MEDICARE, MEDICAID ==
[2017-04-03 15:45] VITALS: BMI 19.8
--- NOTE | 2017-04-03 16:07 | ED PDOC ---
Arrival/HPI - General Chief Complaint: GI Problem Time Seen by Provider: 04/03/17 15:34 Historian: Patient - History of Present Illness Narrative History of Present Illness (Text): 04/03/17 16:04 A 72 year old female whose past medical history includes, SMA Syndrome, Obstruction, s/p stent, presents to the emergency department with abdominal pain and coffee ground vomiting sine 12 PM today. The patient states that she has been having multiple episodes of hematemesis, but no melena. She notes that she has been experiencing mild abdominal cramping. The patiene denies fevers, chills, headache, dizziness, sore throat, cough, chest pain, shortness of breath, dyspnea on exertion, nausea, diarrhea, neck pain, back pain, urinary changes, or any other complaints. Time/Duration: Other (12 PM) Symptom Onset: Sudden Symptom Course: Unchanged Activities at Onset: Rest, Light Context: Home Past Medical History - Provider Review Nursing Documentation Reviewed: Yes - Infectious Disease Hx of Infectious Diseases: None - Cardiac Hx Cardiac Disorders: No Hx Pacemaker: No - Pulmonary Hx Respiratory Disorders: Yes Hx Chronic Obstructive Pulmonary Disease (COPD): Yes - Neurological Hx Neurological Disorder: No Hx Paralysis: No - HEENT Hx HEENT Disorder: No - Renal Hx Renal Disorder: No - Endocrine/Metabolic Hx Endocrine Disorders: No - Hematological/Oncological Hx Blood Transfusions: No - Integumentary Hx Dermatological Disorder: No - Musculoskeletal/Rheumatological Hx Musculoskeletal Disorders: No - Gastrointestinal Hx Gastrointestinal Disorders: Yes - Genitourinary/Gynecological Hx Genitourinary Disorders: No - Psychiatric Hx Psychophysiologic Disorder: No Hx Anxiety: No Hx Emotional Abuse: No Hx Physical Abuse: No Hx Substance Use: No - Surgical History Hx Joint Replacement: Yes (left hip) Hx Orthopedic Surgery: Yes Other/Comment: Bowel obstruction - Anesthesia Hx Anesthesia Reactions: No Hx Malignant Hyperthermia: No - Suicidal Assessment Feels Threatened In Home Enviroment: No Family/Social History - Physician Review Nursing Documentation Reviewed: Yes Family/Social History: No Known Family HX Smoking Status: Former Smoker Hx Alcohol Use: No Hx Substance Use: No Allergies/Home Meds Allergies/Adverse Reactions: Allergies ketorolac [From Toradol] Allergy (Severe, Verified 04/03/17 15:53) ANAPHYLAXIS Home Medications: Home Meds Medication Instructions Recorded Confirmed Ferrous Sulfate [Ferosul] 325 mg PO DAILY 02/21/17 02/21/17 Furosemide [Lasix] 20 mg PO DAILY 02/21/17 02/21/17 Potassium Chloride in 0.9%NaCl 20 meq PO DAILY 02/21/17 02/21/17 [Potassium Cl 20 Meq/250 ml-Ns] Review of Systems - Physician Review All systems were reviewed & negative as marked: Yes - Review of Systems Constitutional: absent: Fevers, Night Sweats Respiratory: absent: SOB, Cough Cardiovascular: absent: Chest Pain, AGEE Gastrointestinal: Abdominal Pain, Vomiting (Coffee ground in color), Hematemesis (multiple episodes of hematemesis). absent: Diarrhea, Nausea Genitourinary Female: absent: Urine Output Changes Musculoskeletal: absent: Back Pain, Neck Pain Neurological: absent: Headache, Dizziness Physical Exam Vital Signs Reviewed: Yes Vital Signs Temp Pulse Resp BP Pulse Ox 04/03/17 22:17 76 18 113/52 L 100 04/03/17 20:15 76 16 102/64 100 04/03/17 15:42 97.9 F 80 20 94/56 L 98 Temperature: Afebrile Blood Pressure: Hypertensive Pulse: Regular Respiratory Rate: Normal Appearance: Positive for: Well-Appearing, Non-Toxic, Comfortable Pain Distress: None Mental Status: Positive for: Alert and Oriented X 3 - Systems Exam Head: Present: Atraumatic, Normocephalic Pupils: Present: PERRL Extroacular Muscles: Present: EOMI Conjunctiva: Present: Normal Mouth: Present: Moist Mucous Membranes Neck: Present: Normal Range of Motion Respiratory/Chest: Present: Clear to Auscultation, Good Air Exchange. No: Respiratory Distress, Accessory Muscle Use Cardiovascular: Present: Regular Rate and Rhythm, Normal S1, S2. No: Murmurs Abdomen: Present: Tenderness (Mild non-focal abdominal tenderness.), Other (The patient refused a rectal exam.) Back: Present: Normal Inspection Upper Extremity: Present: Normal Inspection. No: Cyanosis, Edema Lower Extremity: Present: Normal Inspection. No: Edema Neurological: Present: GCS=15, CN II-XII Intact, Speech Normal Skin: Present: Warm, Dry, Normal Color. No: Rashes Psychiatric: Present: Alert, Oriented x 3, Normal Insight, Normal Concentration Medical Decision Making ED Course and Treatment: 04/03/17 16:10 Impression: A 72 year old female presents to the emergency department with abdominal pain, coffee ground vomiting, and multiple episodes of hematemesis Plan: -- EKG -- Chest X-ray -- Labs -- Urinalysis -- Zofran and Protonix -- Reassess and disposition Prior Visits: Notes and results from previous visits were reviewed. On 02/21/2017. The patient presented to the emergency department for right wrist pain with numbness. Progress Notes: EKG: Ordered, reviewed, and independently interpreted the EKG. Rate : 107 BPM Rhythm : Sinus Tachycardia Chest X-ray Dictator : Poncho Lema MD Report Date : 04/03/2017 17:23:48 IMPRESSION: No active disease. No significant interval change compared to the prior examination(s). CT Abdomen and Pelvis without intravenous contrast Dictator : Anabell Feliz MD Report Date : 04/03/2017 18:32:03 IMPRESSION: Severe constipation. No evidence of bowel obstruction. - Lab Interpretations Lab Results: 04/03/17 16:20 04/03/17 16:20 Lab Results 04/03/17 16:20: Blood Type A POSITIVE, Antibody Screen Negative, BBK History Checked No verified bt 04/03/17 16:20: Sodium 137, Potassium 3.3 L, Chloride 87 L, Carbon Dioxide 33, Anion Gap 20, BUN 56 H, Creatinine 1.4 H, Est GFR ( Amer) 45, Est GFR ( Non-Af Amer) 37, Random Glucose 81, Calcium 9.2, Magnesium 2.2, Total Bilirubin 0.6, AST 41 H, ALT 25, Alkaline Phosphatase 100, Lactate Dehydrogenase 819 H, Total Creatine Kinase 90, Troponin I 0.06 D, Total Protein 8.0, Albumin 4.7, Globulin 3.3, Albumin/Globulin Ratio 1.4, Lipase 102 04/03/17 16:20: PT 10.3, INR 0.95, APTT 22.5 L 04/03/17 16:20: WBC 22.4 H D, RBC 3.96, Hgb 13.2, Hct 38.7, MCV 97.7, MCH 33.3, MCHC 34.1, RDW 15.0 H, Plt Count 401, MPV 10.4, Gran % 85.3 H, Lymph % (Auto) 7.0 L, [place] % (Auto) 7.5 H, Eos % (Auto) 0.1 L, Baso % (Auto) 0.1, Gran # 19.11 H, Lymph # 1.6, Lajas # 1.7 H, Eos # 0.0, Baso # 0.02 I have reviewed the lab results: Yes - RAD Interpretation Radiology Orders: 04/03/17 15:58 CHEST PORTABLE [RAD] Stat 04/03/17 17:06 ABD & PELVIS W/O PO OR IV CONT [CT] Stat - EKG Interpretation Interpreted by ED Physician: Yes Type: 12 lead EKG - Medication Orders Current Medication Orders: Arformoterol Tartrate (Brovana) 15 mcg IH [id number] [facility] Last Admin: 04/06/17 08:17 Dose: Not Given Non-Admin Reason: Patient Refused Budesonide (Pulmicort Respules) 0.25 mg IH [id number] [facility] Last Admin: 04/06/17 08:17 Dose: Not Given Non-Admin Reason: Patient Refused Ceftriaxone Sodium (Rocephin 1 Gram Ivpb) 1 gm in 100 mls @ 100 mls/hr IVPB DAILY [facility] PRN Reason: Protocol Last Admin: 04/05/17 09:15 Dose: 100 mls/hr eMAR Start Stop Document 04/05/17 09:15 [facility] (Rec: 04/05/17 09:15 [facility] [id number] Intravenous Solution Start Date 04/05/17 Start Time 09:15 End Date 04/05/17 End time 09:15 Total Infusion Time 0 Metronidazole (Flagyl) 500 mg in 100 mls @ 100 mls/hr IVPB Q8 [facility] PRN Reason: Protocol Last Admin: 04/06/17 05:48 Dose: 100 mls/hr eMAR Start Stop Document 04/06/17 05:48 SRE (Rec: 04/06/17 05:48 SRE [id number]) Intravenous Solution Start Date 04/06/17 Start Time 05:48 Sodium Chloride (Sodium Chloride 0.9%) 1,000 mls @ 50 mls/hr IV .Q20H [facility] Last Admin: 04/06/17 08:30 Dose: Sodium Chloride (Sodium Chloride 0.9%) 1,000 mls @ 100 mls/hr IV .Q10H [facility] Pantoprazole Sodium (Protonix Inj) 40 mg IVP Q12 [facility] Last Admin: 04/05/17 21:30 Dose: 40 mg IVP Administration Document 04/05/17 21:30 SRE (Rec: 04/05/17 21:30 SRE [id number]) Charges for Administration # of IVP Administrations 1 Pregabalin (Lyrica) 50 mg PO BID [facility] Last Admin: 04/05/17 17:12 Dose: 50 mg Tramadol HCl (Ultram) 50 mg PO TID [facility] Last Admin: 04/05/17 20:22 Dose: 50 mg MAR Pain Assessment Document 04/05/17 20:22 SRE (Rec: 04/05/17 20:22 SRE [id number]) Pain Reassessment Is this a pain reassessment? No Sleep Is patient sleeping during reassessment? No Presence of Pain Presence of Pain Yes Location Left, Right or Bilateral Right Pain Location Body Site Hand Discontinued Medications Alprazolam (Xanax) 0.25 mg PO STAT STA PRN Reason: Protocol Stop: 04/05/17 01:14 Last Admin: 04/05/17 01:24 Dose: 0.25 mg Behavioural Document 04/05/17 01:24 SRE (Rec: 04/05/17 01:24 SRE [id number]) Maintenance Maintenance Dose No Nonmedicinal Nonmedicinal Interventions Therapeutic Communication See nurse's notes Behavior Behavior for Medication: Anxiety Pantoprazole Sodium (Protonix 40mg Ivpb) 40 mg in 100 mls @ 20 mls/hr IVPB .Q5H [facility] Last Admin: 04/04/17 10:16 Dose: 20 mls/hr eMAR Start Stop Document 04/04/17 10:16 CRIM (Rec: 04/04/17 10:16 [facility] [id number][facility] Intravenous Solution Start Date 04/04/17 Start Time 10:00 End Date 04/04/17 Piperacillin Sod/Tazobactam Sod (Zosyn 3.375 In Ns 100ml) 100 mls @ 200 mls/hr IVPB STAT STA PRN Reason: Protocol Stop: 04/03/17 19:10 Last Admin: 04/03/17 19:46 Dose: 200 mls/hr eMAR Start Stop Document 04/03/17 19:46 MR (Rec: 04/03/17 19:46 MR [id number]) Intravenous Solution Start Date 04/03/17 Start Time 19:46 End Date 04/03/17 End time 20:16 Total Infusion Time 30 Sodium Chloride (Sodium Chloride 0.9%) 1,000 mls @ 100 mls/hr IV .Q10H [facility] Last Admin: 04/03/17 22:21 Dose: 100 mls/hr eMAR Start Stop Document 04/03/17 22:21 GMD (Rec: 04/03/17 22:21 GMD [id number]) Intravenous Solution Start Date 04/03/17 Start Time 22:21 Potassium Chloride 40 meq/ (Sodium Chloride) 1,020 mls @ 100 mls/hr IV .[id number] [facility] Last Admin: 04/04/17 20:45 Dose: 100 mls/hr eMAR Start Stop Document 04/04/17 20:45 SRE (Rec: 04/04/17 20:45 SRE [id number]) Intravenous Solution Start Date 04/04/17 Start Time 20:45 Ondansetron HCl (Zofran Inj) 4 mg IVP STAT STA Stop: 04/03/17 15:59 Last Admin: 04/03/17 16:38 Dose: 4 mg IVP Administration Document 04/03/17 16:38 MR (Rec: 04/03/17 16:38 MR [id number]) Charges for Administration # of IVP Administrations 1 Pantoprazole Sodium (Protonix Inj) 40 mg IVP STAT STA Stop: 04/03/17 15:59 Last Admin: 04/03/17 16:38 Dose: 40 mg IVP Administration Document 04/03/17 16:38 MR (Rec: 04/03/17 16:38 MR [id number]) Charges for Administration # of IVP Administrations 1 Potassium Chloride (K-Dur 20 Meq Er Tab) 40 meq PO ONCE ONE Stop: 04/04/17 18:57 Last Admin: 04/04/17 19:05 Dose: 40 meq Tramadol HCl (Ultram) 50 mg PO STAT STA Stop: 04/03/17 23:57 Last Admin: 04/04/17 00:12 Dose: 50 mg MAR Pain Assessment Document 04/04/17 00:12 SSE (Rec: 04/04/17 00:12 SSE [id number]) Pain Reassessment Is this a pain reassessment? Yes Sleep Is patient sleeping during reassessment? No Presence of Pain Presence of Pain Yes Pain Scale Used Pain Scale Used Numeric Location Pain Location Body Site Generalized Description Description Constant - Scribe Statement The provider has reviewed the documentation as recorded by the Cely Joe Provider Cely Attestation: All medical record entries made by the Alexibsaima were at my direction and personally dictated by me. I have reviewed the chart and agree that the record accurately reflects my personal performance of the history, physical exam, medical decision making, and the department course for this patient. I have also personally directed, reviewed, and agree with the discharge instructions and disposition. Disposition/Present on Arrival - Present on Arrival Any Indicators Present on Arrival: No History of DVT/PE: No History of Uncontrolled Diabetes: No Urinary Catheter: No History of Decub. Ulcer: No History Surgical Site Infection Following: None - Disposition Have Diagnosis and Disposition been Completed?: Yes Diagnosis: GI bleed Disposition: HOSPITALIZED Disposition Time: 11:00 Condition: STABLE
[2017-04-03] MEDS: Pantoprazole 40mg/100ml IVPB 40 MG/100 ML BAG IVPB SCH ×2 (16:37→22:21)
[2017-04-03 16:39] LABS: BASO # 0.02 K/mm3 (0.0-2.0); BASO % 0.1 % (0.0-3.0); EOS % 0.1 % (1.5-5.0); GRAN # 19.11 (1.4-6.5); GRAN % 85.3 % (50.0-68.0); HEMATOCRIT 38.7 % (36.0-48.0); LYMPH # 1.6 (1.2-3.4); MEAN CELL VOLUME 97.7 fl (80.0-105.0); MEAN CORPUSCULAR HEMOGLOBIN 33.3 pg (25.0-35.0); MEAN CORPUSCULAR HGB CONC 34.1 g/dl (31.0-37.0); MEAN PLATELET VOLUME 10.4 fl (7.0-11.0); MONO # 1.7 (0.1-0.6); MONO % 7.5 % (1.0-6.0); WHITE BLOOD COUNT 22.4 10^3/ul (4.5-11.0)
[2017-04-03 16:46] LABS: ALB/GLOB RATIO 1.4 (1.1-1.8); BILIRUBIN,TOTAL 0.6 mg/dL (0.2-1.3); CALCIUM 9.2 mg/dL (8.4-10.5); MAGNESIUM 2.2 mg/dL (1.7-2.2); POTASSIUM 3.3 mmol/L (3.6-5.0)
[2017-04-03 16:47] LABS: INR 0.95 (0.93-1.08); PARTIAL THROMBOPLASTIN TIME 22.5 Seconds (23.7-30.8)
[2017-04-03 16:57] LABS: TROPONIN I 0.06 ng/mL
[2017-04-03] MEDS ORDERED: Piperacillin/Tazobact 3.375 gm 100 ML IVPB STA (18:41)
--- NOTE | 2017-04-03 20:02 | RAD ---
HISTORY: Abdominal pain. Technique: Single view portable semi erect @ 16:20. COMPARISON: 02/21/2017 FINDINGS: LUNGS: No active pulmonary disease. PLEURA: No significant pleural effusion identified, no pneumothorax apparent. CARDIOVASCULAR: Normal. OSSEOUS STRUCTURES: No significant abnormalities. VISUALIZED UPPER ABDOMEN: Normal. OTHER FINDINGS: None. IMPRESSION: No active disease. No significant interval change compared to the prior examination(s).
--- NOTE | 2017-04-03 20:03 | CT ---
PROCEDURE: CT Abdomen and Pelvis without intravenous contrast HISTORY: Abdominal pain h/o of obstruction COMPARISON: 02/04/2017 TECHNIQUE: CT scan of the abdomen and pelvis was performed without administration of intravenous contrast. Oral contrast was not administered. Coronal and sagittal reformatted images were obtained. Radiation dose: Total exam DLP = 191.97 mGy-cm. This CT exam was performed using one or more of the following dose reduction techniques: Automated exposure control, adjustment of the mA and/or kV according to patient size, and/or use of iterative reconstruction technique. FINDINGS: LOWER THORAX: There is a stable 5 mm subpleural nodule in the lateral segment of the right middle lobe. There is dependent atelectasis in the right lower lobe. LIVER: The liver is normal in size. No gross lesion or ductal dilatation. GALLBLADDER AND BILE DUCTS: There are no calcified gallstones. PANCREAS: There is mild diffuse atrophy of the pancreas. No gross lesion or ductal dilatation. SPLEEN: The spleen is normal in size. ADRENALS: Both adrenal glands are normal in size. There is a stable subcentimeter adenoma in the left adrenal gland. KIDNEYS AND URETERS: Both kidneys are normal in size without nephrolithiasis. No hydronephrosis. No solid mass. VASCULATURE: There are atherosclerotic aortoiliac calcifications. No aortic aneurysm. BOWEL: The small bowel loops are normal in caliber. There is large amount of stool in the colon. There are postsurgical changes of partial sigmoid colon resection. APPENDIX: No inflammatory changes in the right lower quadrant. PERITONEUM: No free fluid. No free air. LYMPH NODES: No enlarged lymph nodes. BLADDER: Unremarkable. REPRODUCTIVE: Unremarkable. BONES: No acute fracture. There is diffuse bone demineralization and multilevel degenerative changes. There is levoscoliosis in the lumbar spine. Status post left hip replacement. OTHER FINDINGS: There is a small sliding hiatal hernia. IMPRESSION: Severe constipation. No evidence of bowel obstruction.
--- NOTE | 2017-04-03 21:52 | CARD ---
APPROVED REPORT EKG Measurement Heart [id number] <Conclusion> Sinus tachycardia, Frequent APCs Septal infarct, age undetermined Abnormal ECG
[2017-04-03] MEDS ORDERED: Sodium Chloride 0.9% 1,000 ML IV SCH (22:30)
--- NOTE | 2017-04-03 23:56 | CP.PCM.PN ---
Subjective - Date & Time of Evaluation Date of Evaluation: 04/04/17 Time of Evaluation: 01:56 - Subjective Subjective: Patient was seen at bedside , she is sleeping now. Nurse had called me and told that she was crying in pain, because she had pain all over body, requested tramodol as she is on tramodol at home.I had ordered tramodol and then I went to see patient.When I reached floor, was on floor who had ordered tramodol and Lyrica for her. Later on, in the morning she was demanding coffee to drink eventhough she is NPO. Her Intravenous line is out, so nurse requested to reinsert. This 72 year old woman was admitted with coffee ground vomiting, abdominal pain. Has PMH of COPD,TIA,SMA syhndrome, right ankle ORIF, left hip replacement , appendectomy. Objective - Vital Signs/Intake and Output Vital Signs (last 24 hours): Temp Pulse Resp BP Pulse Ox 97.9 F 76 18 113/52 L 100 04/03/17 15:42 04/03/17 22:17 04/03/17 22:17 04/03/17 22:17 04/03/17 22:17 - Medications Medications: Current Medications Pantoprazole Sodium (Protonix 40mg Ivpb) 40 mg in 100 mls @ 20 mls/hr IVPB .Q5H [facility] Last Admin: 04/03/17 22:21 Dose: 20 mls/hr Sodium Chloride (Sodium Chloride 0.9%) 1,000 mls @ 100 mls/hr IV .Q10H [facility] Last Admin: 04/03/17 22:21 Dose: 100 mls/hr Ceftriaxone Sodium (Rocephin 1 Gram Ivpb) 1 gm in 100 mls @ 100 mls/hr IVPB DAILY [facility] PRN Reason: Protocol Metronidazole (Flagyl) 500 mg in 100 mls @ 100 mls/hr IVPB Q8 [facility] PRN Reason: Protocol - Labs Labs: PT 10.3 Seconds (9.9-11.8) 04/03/17 16:20 INR 0.95 (0.93-1.08) 04/03/17 16:20 APTT 22.5 Seconds (23.7-30.8) L 04/03/17 16:20 - Constitutional Appears: Well, No Acute Distress - Head Exam Head Exam: ATRAUMATIC, NORMAL INSPECTION, NORMOCEPHALIC - Eye Exam Eye Exam: Normal appearance - ENT Exam ENT Exam: Normal External Ear Exam - Neck Exam Neck Exam: Normal Inspection - Respiratory Exam Respiratory Exam: NORMAL BREATHING PATTERN - Cardiovascular Exam Cardiovascular Exam: absent: JVD - GI/Abdominal Exam GI & Abdominal Exam: absent: Distended - Rectal Exam Rectal Exam: Deferred - Exam Additional comments: Deferred. - Extremities Exam Extremities Exam: Normal Inspection - Back Exam Back Exam: NORMAL INSPECTION - Neurological Exam Neurological Exam: Alert, Awake - Psychiatric Exam Psychiatric exam: Normal Affect, Normal Mood - Skin Skin Exam: Normal Color Assessment and Plan - Assessment and Plan (Free Text) Assessment: Abdominal pain. UGI bleeding. COPD. Leukocytosis. Hypokalemia. Renal insufficiency. Plan: Tramodol was ordered. # 24 angiocath was inserted in right upper arm. Continue present management.
[2017-04-04] MEDS ORDERED: metroNIDAZOLE IV 500 mg/100 ml 500 MG/100 ML BAG ONE (00:17)
[2017-04-04] MEDS: metroNIDAZOLE IV 500 mg/100 ml 500 MG/100 ML BAG IVPB SCH ×4 (00:19→21:26)
[2017-04-04] MEDS: Pantoprazole 40mg/100ml IVPB 40 MG/100 ML BAG IVPB SCH ×2 (03:56→10:16)
[2017-04-04] MEDS ORDERED: Arformoterol 15 mcg/2 ml Inh Sol IH SCH (08:00)
[2017-04-04] MEDS: Arformoterol 15 mcg/2 ml Inh Sol IH SCH ×2 (08:15→19:42)
[2017-04-04] MEDS: Budesonide 0.25 mg/2 ml Inhal Susp UD IH SCH ×2 (08:15→19:42)
[2017-04-04 08:31] LABS: BASO # 0.05 K/mm3 (0.0-2.0); BASO % 0.4 % (0.0-3.0); EOS # 0.1 (0.0-0.7); EOS % 0.7 % (1.5-5.0); GRAN # 8.88 (1.4-6.5); GRAN % 73.8 % (50.0-68.0); HEMATOCRIT 26.8 % (36.0-48.0); LYMPH # 1.9 (1.2-3.4); LYMPH % 15.9 % (22.0-35.0); MEAN CELL VOLUME 97.8 fl (80.0-105.0); MEAN CORPUSCULAR HEMOGLOBIN 32.8 pg (25.0-35.0); MEAN CORPUSCULAR HGB CONC 33.6 g/dl (31.0-37.0); MEAN PLATELET VOLUME 9.7 fl (7.0-11.0); MONO # 1.1 (0.1-0.6); MONO % 9.2 % (1.0-6.0)
[2017-04-04 08:46] LABS: ALB/GLOB RATIO 1.3 (1.1-1.8); ALKALINE PHOSPHATASE 70 U/L (38-126); ALT/SGPT 33 U/L (7-56); AST/SGOT 21 U/L (14-36); BILIRUBIN,TOTAL 0.3 mg/dL (0.2-1.3); BLOOD UREA NITROGEN 41 mg/dL (7-21); CALCIUM 7.3 mg/dL (8.4-10.5); CARBON DIOXIDE 38 mmol/L (21-33); CHLORIDE 93 mmol/L (98-107); GFR AFRICAN-AMERICAN > 60; GLUCOSE,RANDOM 77 mg/dL (70-110); SODIUM 136 mmol/L (132-148); TOTAL PROTEIN 4.9 g/dL (5.8-8.3)
[2017-04-04 08:58] LABS: POTASSIUM 2.5 mmol/L (3.6-5.0)
[2017-04-04] MEDS: cefTRIAXone 1 gm 1 GM/100 ML BAG IVPB SCH (09:21)
[2017-04-04] MEDS ORDERED: Potassium Chloride 40 mEq/30 ml LIQ UD PO STA (17:49)
[2017-04-04] MEDS ORDERED: Potassium Chloride 20 mEq ER Tab PO ONE (18:56)
--- NOTE | 2017-04-04 19:11 | PN ---
DATE: 04/04/2017 SUBJECTIVE: This patient was seen and evaluated earlier. The patient was feeling hungry and no further episodes of vomiting. No abdominal pain. She wants to eat. PHYSICAL EXAMINATION VITAL SIGNS: Temperature 97.7, blood pressure 90/41, pulse 66, and respirations 18. HEENT: Atraumatic and anicteric. NECK: Supple. HEART: S1 and S2 regular. LUNGS: Bilateral air entry present. ABDOMEN: Soft. No mass palpable. No tenderness. EXTREMITIES: No edema. No cyanosis. LABORATORY DATA: Hemoglobin 9.0, hematocrit 26.8, WBC 12, platelets 246,000. Chemistry showed a potassium 2.5, BUN 41, creatinine 0.8. LFT is normal. Albumin 2.8. 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 She had some coffee ground material when she was in the ER. No further episodes of vomiting today. When the patient came her WBC count was elevated to 22.4, hemoglobin 13.2, and the patient has no further episodes of vomiting. Her repeat hemoglobin has come down to 13 to 9 and WBC count also came down from 22 to 12. Her albumin has also decreased suggestive of drop in hemoglobin probably is dilusional. Th patient did not have any melena or right blood per rectum now. The etiology for vomiting is unclear. The differential in the CT scan was reviewed. RECOMMENDATION: 1. Likely cause to be considered is peptic ulcer disease, gastroesophageal reflux disease, and also gastroparesis bezoar also to be considered. I would recommend follow up of the hemoglobin and hematocrit and we will discontinue the Protonix drip to q.12 hourly and we will closely follow up with her hemoglobin and hematocrit. 2. History of SMA stenosis status post stent placement. 3. Leukocytosis rule out sepsis. The patient had a cultures done. The patient dropped in blood count now most likely could be related to dilusional. I would recommend followup of the cultures. The patient is empirically treated being with Flagyl and ceftriaxone we will continue that. 4. Other comorbidities include COPD and TIA. We will continue the present management. We will continue to closely followup of the hemoglobin and hematocrit. We will reduce the Protonix drip to twice daily. The patient would benefit from endoscopy evaluation, we will consider after further optimization. The patient has a prerenal azotemia slowly improving. Potassium is being supplemented Thank you very much for allowing us to participate in the care of the patient. Meghan Tapia MD MTDGema
--- NOTE | 2017-04-05 01:13 | CP.PCM.PN ---
Subjective - Date & Time of Evaluation Date of Evaluation: 04/05/17 Time of Evaluation: 01:13 - Subjective Subjective: S: Nurse requested for patient to have something for relaxation. Received pain medications earlier. Patient is restless. Xanax 0.25 mg PO was ordered. When went to see patient found patient to be resting. Medical record was reviewed. O: Last Vital Signs 3 Temp 98.4 F 04/05/17 00:01 Pulse 66 04/05/17 02:00 Resp 18 04/05/17 00:01 BP 105/42 L 04/05/17 01:08 Pulse Ox 100 04/05/17 00:01 Resting. Not in distress. LUNGS:Normal breathing pattern. A: Anxiety. P:Xanax 0.25 mg po was ordered and given earlier. Objective - Vital Signs/Intake and Output Vital Signs (last 24 hours): Temp Pulse Resp BP Pulse Ox 98.4 F 62 18 105/42 L 100 04/05/17 00:01 04/05/17 01:08 04/05/17 00:01 04/05/17 01:08 04/05/17 00:01 Intake and Output: 04/04/17 04/05/17 18:59 06:59 Intake Total 1020 Balance 1020 - Medications Medications: Current Medications Arformoterol Tartrate (Brovana) 15 mcg IH [id number] [facility] Last Admin: 04/04/17 19:42 Dose: 15 mcg Budesonide (Pulmicort Respules) 0.25 mg IH [id number] [facility] Last Admin: 04/04/17 19:42 Dose: 0.25 mg Ceftriaxone Sodium (Rocephin 1 Gram Ivpb) 1 gm in 100 mls @ 100 mls/hr IVPB DAILY [facility] PRN Reason: Protocol Last Admin: 04/04/17 09:21 Dose: 100 mls/hr Metronidazole (Flagyl) 500 mg in 100 mls @ 100 mls/hr IVPB Q8 [facility] PRN Reason: Protocol Last Admin: 04/04/17 21:26 Dose: 100 mls/hr Potassium Chloride 40 meq/ (Sodium Chloride) 1,020 mls @ 100 mls/hr IV .[id number] [facility] Last Admin: 04/04/17 20:45 Dose: 100 mls/hr Pantoprazole Sodium (Protonix Inj) 40 mg IVP Q12 [facility] Last Admin: 04/04/17 22:15 Dose: 40 mg Pregabalin (Lyrica) 50 mg PO BID [facility] Last Admin: 04/04/17 17:19 Dose: 50 mg Tramadol HCl (Ultram) 50 mg PO TID [facility] Last Admin: 04/04/17 20:38 Dose: 50 mg - Labs Labs: 04/04/17 07:28 04/04/17 07:28 PT 10.3 Seconds (9.9-11.8) 04/03/17 16:20 INR 0.95 (0.93-1.08) 04/03/17 16:20 APTT 22.5 Seconds (23.7-30.8) L 04/03/17 16:20
[2017-04-05] MEDS: metroNIDAZOLE IV 500 mg/100 ml 500 MG/100 ML BAG IVPB SCH ×3 (05:57→21:30)
[2017-04-05 07:28] LABS: HEMATOCRIT 28.1 % (36.0-48.0); MEAN CELL VOLUME 101.1 fl (80.0-105.0); MEAN CORPUSCULAR HEMOGLOBIN 32.4 pg (25.0-35.0); MEAN PLATELET VOLUME 10.3 fl (7.0-11.0); RED CELL DISTRIBUTION WIDTH 15.4 % (11.5-14.5); WHITE BLOOD COUNT 10.6 10^3/ul (4.5-11.0)
[2017-04-05 07:58] LABS: ALB/GLOB RATIO 1.2 (1.1-1.8); ALKALINE PHOSPHATASE 71 U/L (38-126); ALT/SGPT 29 U/L (7-56); AST/SGOT 24 U/L (14-36); BILIRUBIN,TOTAL 0.1 mg/dL (0.2-1.3); BLOOD UREA NITROGEN 17 mg/dL (7-21); CALCIUM 7.9 mg/dL (8.4-10.5); CARBON DIOXIDE 30 mmol/L (21-33); CHLORIDE 107 mmol/L (98-107); GFR AFRICAN-AMERICAN > 60; GLUCOSE,RANDOM 68 mg/dL (70-110); POTASSIUM 4.5 mmol/L (3.6-5.0); SODIUM 141 mmol/L (132-148); TOTAL PROTEIN 5.1 g/dL (5.8-8.3)
[2017-04-05] MEDS: cefTRIAXone 1 gm 1 GM/100 ML BAG IVPB SCH (09:15)
[2017-04-05] MEDS: Arformoterol 15 mcg/2 ml Inh Sol IH SCH ×2 (10:45→19:38)
[2017-04-05] MEDS: Budesonide 0.25 mg/2 ml Inhal Susp UD IH SCH ×2 (10:45→19:38)
[2017-04-05] MEDS: Sodium Chloride 0.9% 1,000 ML IV SCH (12:30)
--- NOTE | 2017-04-05 19:50 | PN ---
DATE: 04/05/2017 SUBJECTIVE: This patient was seen and evaluated earlier. The patient has been tolerating the diet. No further episodes of vomiting. The patient is hungry, wants solid food. No complaints of any abdominal pain. PHYSICAL EXAMINATION: VITAL SIGNS: Temperature 97.7, pulse 72, blood pressure 99/54. HEENT: Atraumatic, anicteric. NECK: Supple. HEART: S1 and S2 heard. LUNGS: Bilateral air entry present. ABDOMEN: Soft. There is no tenderness. EXTREMITIES: No edema, no cyanosis. NEUROLOGICAL: Alert and oriented. Moves all the extremities. LABORATORY DATA: Hemoglobin 9, hematocrit is 29.1, WBC 10.6, platelets 261. Sodium 141, potassium 4.5, BUN 17, creatinine 0.5. IMPRESSION: This 72-year-old patient with past medical history of superior mesenteric artery stenosis, status post stent placement, history of transient ischemic attack, chronic obstructive pulmonary disease, admitted with episodes of vomiting. The patient was found to have elevated white blood cell count, has pancultures done, been on antibiotics. The CT did not show any active inflammatory changes. The patient's hemoglobin has dropped, but with no obvious bleeding. Most likely, it is related to the hydration. The WBC count has dropped to 10.6, hemoglobin 9. The patient's BUN was 56, is normalized to 17. The patient was also hypokalemic, being supplemented, potassium 4.5. PLAN: 1. Would recommend want to discontinue the potassium supplement. 2. Reduce the IV fluid. 3. The patient may benefit from the upper GI endoscopy to further evaluate. Discussed with the patient at length, which he is agreeable. Schedule for the procedure tomorrow. 4. We will discontinue the Protonix drip. The patient has been on IV Protonix now. Discussed with Dr. Peña. Thank you very much for allowing us to participate in the care of the patient. Meghan Tapia MD
--- NOTE | 2017-04-05 21:28 | PN ---
DATE: 04/05/2017 SUBJECTIVE: The patient is a 72-year-old female who came to the hospital with GI bleed. The patient is clinically stable. She wants to home; however, she is currently on IV fluids. She has no chest pain, no short of breath. No nausea. No vomiting. PHYSICAL EXAMINATION: VITAL SIGNS: Temperature 98.2, heart rate 71, blood pressure 104/46, respirations 18, saturation 100%. HEAD AND NECK: Normal. No JVD. No thyromegaly. CHEST: Clear. Good air entry. CARDIAC: First sound and second sound normal. ABDOMEN: Soft, nontender. EXTREMITIES: No edema. NEUROLOGIC: Normal, except right wrist drop. LABORATORY STUDY: White count 10.6, hemoglobin is 9, hematocrit 28.1, platelets 261. Sodium 141, potassium 4.5, chloride 107, bicarb 30, BUN 17, creatinine 0.5. Liver function test is normal. The patient's total protein went down from 8 to 5.1 and albumin from 4.7 to 2.8. Also, the patient's white count went down from 22.4 to 10.6. IMPRESSION AND PLAN: 1. Acute prerenal azotemia. Continue IV fluid. 2. Anemia, possible acute upper gastrointestinal bleed, hematemesis. We will get an upper endoscopy in the morning to rule out any peptic ulcer disease. 3. Chronic obstructive pulmonary disease. 4. History of cerebrovascular accident. 5. Wrist drop. Continue current medications. We will monitor the patient's status. Continue IV fluid. Temo Peña MD <
[2017-04-06] MEDS: metroNIDAZOLE IV 500 mg/100 ml 500 MG/100 ML BAG IVPB SCH ×2 (05:48→14:45)
--- NOTE | 2017-04-06 05:56 | HP ---
DATE OF SERVICE: 04/03/2017 REASON FOR ADMISSION: Hemoptysis. HISTORY OF PRESENT ILLNESS: This is a 72-year-old female, has a history of superior mesenteric artery stenosis with angioplasty being on Plavix and aspirin, also COPD came into the hospital that morning because she vomited a couple of hours after she ate some sausage and noted that the vomitus was dark, coffee-ground in nature. The patient came to the ER for evaluations. In the ER, noted that the patient has coffee-ground material and kept the patient for upper GI bleed. The patient has been taking Plavix and aspirin and seemed stable. No history of Osler disease in the past or any GI disease. PAST MEDICAL HISTORY: As I mentioned superior mesenteric artery stenosis, COPD, history of CVA in the past, right wrist drop, osteoporosis, osteoarthritis, bilateral ankle severe arthritis, and kyphosis. She also does have cardiac history of congestive heart failure. MEDICATIONS: She is on Lasix and potassium. ALLERGIES: SHE IS ALLERGIC TO TORADOL. SOCIAL HISTORY: She has quit smoking. She lives by herself. Does not use any drugs, otherwise negative. FAMILY HISTORY: Noncontributory. REVIEW OF SYSTEMS: She does have a right hand weakness and wrist drop recently, this is a couple of months . She denied any diarrhea or any constipation, any other symptoms. She does have some dyspnea on and off and wheezing. PHYSICAL EXAMINATION: On 04/03/2017 VITAL SIGNS: Temperature 97.9, heart rate is 80, blood pressure 102/64, respirations 16, and saturation 100%. HEAD AND NECK: Normal. No JVD. No thyromegaly. CHEST: Clear with good air entry. CARDIAC: First sound and second sound normal. ABDOMEN: Soft and nontender. EXTREMITIES: No edema. NEUROLOGIC: Normal, except right wrist drop. LABORATORY DATA: The patient had sodium 137, potassium 3.3, chloride 87, bicarbonate 23, BUN 56, and creatinine 1.4. Liver function test is normal. Her lipase is normal, albumin 4.3, globulin 3.3. Her CBC shows white 22.4, hemoglobin 15.2, hematocrit 38.7, and platelets is 401. PT/PTT was normal. Chest x-ray shows atelectasis and 5-mm subpleural nodule. EKG, sinus rhythm with premature APCs. IMPRESSION AND PLAN: 1. Acute gastrointestinal bleed. We will admit the patient for observation. Repeat labs in the morning. The patient has high BUN and creatinine, which could be due to gastrointestinal bleed, could be due to hydration. We will monitor hemoglobin and GI consult with Dr. Tapia. Repeat labs in the morning and probably consider endoscopy. 2. Leukocytosis. Blood cultures none. We will get Flagyl and Rocephin. Blood cultures are pending. We will follow up clinically. 3. Chronic osteoarthritis, chronic back pain, chronic ankle pain. Continue tramadol plus Lyrica. 4. Chronic obstructive pulmonary disease. Continue Brovana and Pulmicort. Follow up clinically. The patient is currently is on IV Protonix. We will repeat lab in the morning. Temo Peña MD
[2017-04-06 06:51] LABS: BASO # 0.06 K/mm3 (0.0-2.0); BASO % 0.8 % (0.0-3.0); EOS # 0.2 (0.0-0.7); EOS % 2.6 % (1.5-5.0); GRAN # 5.66 (1.4-6.5); GRAN % 71.2 % (50.0-68.0); HEMATOCRIT 26.2 % (36.0-48.0); LYMPH # 1.1 (1.2-3.4); LYMPH % 13.4 % (22.0-35.0); MEAN CELL VOLUME 100.8 fl (80.0-105.0); MEAN CORPUSCULAR HEMOGLOBIN 32.7 pg (25.0-35.0); MEAN CORPUSCULAR HGB CONC 32.4 g/dl (31.0-37.0); RED CELL DISTRIBUTION WIDTH 15.4 % (11.5-14.5); WHITE BLOOD COUNT 7.9 10^3/ul (4.5-11.0)
[2017-04-06 07:03] LABS: ALB/GLOB RATIO 1.1 (1.1-1.8); ALKALINE PHOSPHATASE 72 U/L (38-126); ALT/SGPT 29 U/L (7-56); AST/SGOT 25 U/L (14-36); BILIRUBIN,TOTAL 0.3 mg/dL (0.2-1.3); BLOOD UREA NITROGEN 7 mg/dL (7-21); CARBON DIOXIDE 30 mmol/L (21-33); CHLORIDE 106 mmol/L (98-107); GFR AFRICAN-AMERICAN > 60; GLUCOSE,RANDOM 79 mg/dL (70-110); MAGNESIUM 1.6 mg/dL (1.7-2.2); POTASSIUM 3.8 mmol/L (3.6-5.0); SODIUM 141 mmol/L (132-148); TOTAL PROTEIN 4.9 g/dL (5.8-8.3)
[2017-04-06 07:20] LABS: TROPONIN I < 0.01 ng/mL
[2017-04-06] MEDS: Arformoterol 15 mcg/2 ml Inh Sol IH SCH ×2 (08:17→19:57)
[2017-04-06] MEDS: Budesonide 0.25 mg/2 ml Inhal Susp UD IH SCH ×2 (08:17→19:57)
[2017-04-06] MEDS: Sodium Chloride 0.9% 1,000 ML IV SCH ×2 (08:30→16:00)
[2017-04-06] MEDS ORDERED: Propofol 10 mg/ml Inj (20 ML) ONE (09:01)
[2017-04-06] MEDS ORDERED: Midazolam 2 MG/2 ML VIAL ONE (09:02)
[2017-04-06] MEDS ORDERED: Lidocaine 1% Inj (20ml) ONE (09:02)
[2017-04-06] MEDS ORDERED: Etomidate 20 mg/10ml Inj IV ONE (09:02)
[2017-04-06] MEDS ORDERED: Sodium Chloride 0.9% 1,000 ML IV SCH (09:45)
[2017-04-06 10:42] VITALS: O2SAT 99
[2017-04-06] MEDS: cefTRIAXone 1 gm 1 GM/100 ML BAG IVPB SCH (11:18)
[2017-04-06 14:15] VITALS: BP 140/53; RESP 18; TEMP 98.4
[2017-04-06 20:11] VITALS: PULSE 90
== END 2017-04-06 20:50 | disposition home or self-care (01) | DRG 378 ==
LOC: ED 15:31 → ERH 19:55 → 2RSO 23:16
PROVIDERS: ADMIT Internal Medicine; ATTEND Internal Medicine
PROC: 3E0F7GC Introduction of Other Therapeutic Substance into Respiratory Tract, Via Natural or Artificial Opening (ICD-10-PCS; 2017-04-04)
PROC: 0DJ08ZZ Inspection of Upper Intestinal Tract, Via Natural or Artificial Opening Endoscopic (ICD-10-PCS; principal; 2017-04-06 09:00)
DX: K92.0 Hematemesis (principal); K22.10 Ulcer of esophagus without bleeding; D64.9 Anemia, unspecified; J44.9 Chronic obstructive pulmonary disease, unspecified; E87.6 Hypokalemia; K44.9 Diaphragmatic hernia without obstruction or gangrene; M81.0 Age-related osteoporosis without current pathological fracture; M40.209 Unspecified kyphosis, site unspecified; M19.90 Unspecified osteoarthritis, unspecified site; M21.331 Wrist drop, right wrist; G89.29 Other chronic pain; M54.9 Dorsalgia, unspecified; D72.829 Elevated white blood cell count, unspecified; N28.9 Disorder of kidney and ureter, unspecified; F41.9 Anxiety disorder, unspecified; Z86.73 Personal history of transient ischemic attack (TIA), and cerebral infarction without residual deficits; Z96.642 Presence of left artificial hip joint; Z87.891 Personal history of nicotine dependence

== ENCOUNTER 2017-07-31 10:37 | Observation (INO) | payer MEDICARE, MEDICAID ==
--- NOTE | 2017-07-31 12:05 | ED PDOC ---
Arrival/HPI - General Chief Complaint: Upper Extremity Problem/Injury Time Seen by Provider: 07/31/17 11:04 Historian: Patient - History of Present Illness Narrative History of Present Illness (Text): 07/31/17 12:13 A 72 year old female, with multiple falls, presents to the emergency department complaining of left arm pain s/p fall yesterday on the street. Reports she was walking without her cane. Denies any loss of consciousness. Patient went to PMD office, who prescribed Tramadol and Ultram, reports taking medication last night , with no relief. Patient was found this morning on the floor. Patient denies any headache, abdominal pain or any other complaints at this time. PMD: Dr. Peña Symptom Onset: Sudden Symptom Course: Unchanged Activities at Onset: Light Context: Street Past Medical History - Provider Review Nursing Documentation Reviewed: Yes - Infectious Disease Hx of Infectious Diseases: None - Cardiac Hx Cardiac Disorders: No Hx Pacemaker: No - Pulmonary Hx Respiratory Disorders: Yes Hx Chronic Obstructive Pulmonary Disease (COPD): Yes - Neurological Hx Neurological Disorder: No Hx Paralysis: No - HEENT Hx HEENT Disorder: No - Renal Hx Renal Disorder: No - Endocrine/Metabolic Hx Endocrine Disorders: No - Hematological/Oncological Hx Blood Transfusions: No - Integumentary Hx Dermatological Disorder: No - Musculoskeletal/Rheumatological Hx Musculoskeletal Disorders: Yes Hx Falls: Yes - Gastrointestinal Hx Gastrointestinal Disorders: Yes - Genitourinary/Gynecological Hx Genitourinary Disorders: No - Psychiatric Hx Psychophysiologic Disorder: No Hx Anxiety: No Hx Emotional Abuse: No Hx Physical Abuse: No Hx Substance Use: No - Surgical History Hx Joint Replacement: Yes (left hip) Hx Orthopedic Surgery: Yes Other/Comment: Bowel obstruction - Anesthesia Hx Anesthesia Reactions: No Hx Malignant Hyperthermia: No - Suicidal Assessment Feels Threatened In Home Enviroment: No Family/Social History - Physician Review Nursing Documentation Reviewed: Yes Family/Social History: No Known Family HX Smoking Status: Former Smoker Hx Alcohol Use: No Hx Substance Use: No Allergies/Home Meds Allergies/Adverse Reactions: Allergies ketorolac [From Toradol] Allergy (Severe, Verified 07/31/17 10:56) ANAPHYLAXIS Home Medications: Home Meds Medication Instructions Recorded Confirmed Ferrous Sulfate [Ferosul] 325 mg PO DAILY 02/21/17 07/31/17 Furosemide [Lasix] 20 mg PO DAILY 02/21/17 07/31/17 Potassium Chloride in 0.9%NaCl 20 meq PO DAILY 02/21/17 07/31/17 [Potassium Cl 20 Meq/250 ml-Ns] Review of Systems - Physician Review All systems were reviewed & negative as marked: Yes - Review of Systems Gastrointestinal: absent: Abdominal Pain Musculoskeletal: Other (left arm pain) Neurological: absent: Headache Physical Exam Vital Signs Reviewed: Yes Vital Signs Temp Pulse Resp BP Pulse Ox 07/31/17 14:18 98 07/31/17 14:10 69 18 133/64 91 L 07/31/17 10:55 98.2 F 76 16 135/69 91 L Temperature: Afebrile Blood Pressure: Normal Pulse: Regular Respiratory Rate: Normal Appearance: Positive for: Well-Appearing, Non-Toxic, Comfortable Pain Distress: None Mental Status: Positive for: Alert and Oriented X 3 - Systems Exam Head: Present: Atraumatic, Normocephalic Pupils: Present: PERRL Extroacular Muscles: Present: EOMI Conjunctiva: Present: Normal Mouth: Present: Moist Mucous Membranes Neck: Present: Normal Range of Motion Respiratory/Chest: Present: Clear to Auscultation, Good Air Exchange. No: Respiratory Distress, Accessory Muscle Use Cardiovascular: Present: Regular Rate and Rhythm, Normal S1, S2. No: Murmurs Abdomen: Present: Normal Bowel Sounds. No: Tenderness, Distention, Peritoneal Signs Back: Present: Normal Inspection Upper Extremity: Present: Other (left elbow tenderness/swelling). No: Cyanosis Lower Extremity: Present: Normal Inspection. No: Edema Neurological: Present: GCS=15, CN II-XII Intact, Speech Normal Skin: Present: Warm, Dry, Normal Color. No: Rashes Psychiatric: Present: Alert, Oriented x 3, Normal Insight, Normal Concentration Medical Decision Making ED Course and Treatment: 07/31/17 12:07 Impression: A 72 year old female with left arm pain s/p fall. Plan: -- EKG -- chest xray -- Radiology left elbow, left humerus, pelvis -- labs -- Urinalysis -- Ultram -- Reassess and disposition Prior Visits: Notes and results from previous visits were reviewed. Patient was last seen in the emergency department on 04/03/17 for evaluation of abdominal pain, vomiting and hematemesis. Progress Notes: EKG: Ordered, reviewed, and independently interpreted the EKG. Rate : 70 BPM Rhythm : NSR Interpretation : No ST/T wave changes 07/31/17 13:03 Chest xray: Creator : Davon Perez MD IMPRESSION: No active disease. 07/31/17 13:25 Radiographs of the left humerus Creator : Davon Perez MD IMPRESSION: Normal radiographs of left humerus. 07/31/17 13:27 Pelvis single view Creator : Davon Perez MD FINDINGS: There is a left hip prosthesis with no dislocation or loosening. No evidence of fracture. IMPRESSION: Negative study 07/31/17 13:27 Radiographs of the left elbow Creator : Davon Perez MD IMPRESSION: There is a displaced fracture of the olecranon. 07/31/17 13:35 Case discussed with PMD, Dr. Peña, who agrees and accents patient to be admitted, requesting Dr. Keyes on consult. Spoke with Dr. Keyes, who requests a splint and will see patient later. - Lab Interpretations Lab Results: 07/31/17 11:45 07/31/17 11:45 Lab Results 07/31/17 11:45: Sodium 142, Potassium 4.0, Chloride 103, Carbon Dioxide 28, Anion Gap 15, BUN 8, Creatinine 0.6 L, Est GFR ( Amer) > 60, Est GFR (Non -Af Amer) > 60, Random Glucose 92, Calcium 9.6, Magnesium 1.8, Total Bilirubin 0.5, AST 31, ALT 25, Alkaline Phosphatase 111, Lactate Dehydrogenase 713 H, Total Creatine Kinase 461 H, CK-MB (CK-2) 12.7 H, CK-MB (CK-2) % 2.8, Troponin I < 0.01, Total Protein 8.2, Albumin 4.5, Globulin 3.7, Albumin/Globulin Ratio 1.2 07/31/17 11:45: PT 12.0, INR 1.04, APTT 30.9 07/31/17 11:45: WBC 9.0, RBC 4.05, Hgb 12.1 D, Hct 38.5, MCV 95.1 D, MCH 29.9 , MCHC 31.4, RDW 18.5 H, Plt Count 286, MPV 9.9, Gran % 74.7 H, Lymph % (Auto) 13.3 L, [place] % (Auto) 10.4 H, Eos % (Auto) 1.2 L, Baso % (Auto) 0.4, Gran # 6.68 H, Lymph # (Auto) 1.2, [place] # (Auto) 0.9 H, Eos # (Auto) 0.1, Baso # (Auto ) 0.04 I have reviewed the lab results: Yes - RAD Interpretation Radiology Orders: 07/31/17 11:25 CHEST PORTABLE [RAD] Stat ELBOW LEFT 3 VIEWS ROUTINE [RAD] Stat HUMERUS LEFT [RAD] Stat 07/31/17 11:26 PELVIS ONE VIEW [RAD] Stat - EKG Interpretation Interpreted by ED Physician: Yes Type: 12 lead EKG - Medication Orders Current Medication Orders: Oxycodone/Acetaminophen (Percocet 5/325 Mg Tab) 1 tab PO Q6H PRN PRN Reason: Pain, moderate (4-7) Stop: 08/03/17 13:46 Last Admin: 07/31/17 14:06 Dose: 1 tab MAR Pain Assessment Document 07/31/17 14:06 GMD (Rec: 07/31/17 14:06 GMD [facility] [id number]) Pain Reassessment Is this a pain reassessment? No Sleep Is patient sleeping during reassessment? No Presence of Pain Presence of Pain Yes Location Left, Right or Bilateral Left Pain Location Body Site Elbow Discontinued Medications Tramadol HCl (Ultram) 50 mg PO STAT STA Stop: 07/31/17 11:33 Last Admin: 07/31/17 12:04 Dose: Not Given Non-Admin Reason: Patient Refused - Scribe Statement The provider has reviewed the documentation as recorded by the Cely Hernandez Provider Scribe Attestation: All medical record entries made by the Scribsaima were at my direction and personally dictated by me. I have reviewed the chart and agree that the record accurately reflects my personal performance of the history, physical exam, medical decision making, and the department course for this patient. I have also personally directed, reviewed, and agree with the discharge instructions and disposition. Disposition/Present on Arrival - Present on Arrival Any Indicators Present on Arrival: No History of DVT/PE: No History of Uncontrolled Diabetes: No Urinary Catheter: No History of Decub. Ulcer: No History Surgical Site Infection Following: None - Disposition Have Diagnosis and Disposition been Completed?: Yes Diagnosis: Elbow fracture, Multiple falls Disposition: HOSPITALIZED Disposition Time: 02:00 Condition: STABLE
[2017-07-31 12:13] LABS: BASO # 0.04 K/mm3 (0.0-2.0); BASO % 0.4 % (0.0-3.0); EOS # 0.1 (0.0-0.7); EOS % 1.2 % (1.5-5.0); GRAN # 6.68 (1.4-6.5); GRAN % 74.7 % (50.0-68.0); HEMOGLOBIN 12.1 g/dL (12.0-16.0); LYMPH # 1.2 (1.2-3.4); LYMPH % 13.3 % (22.0-35.0); MEAN CELL VOLUME 95.1 fl (80.0-105.0); MEAN CORPUSCULAR HEMOGLOBIN 29.9 pg (25.0-35.0); MEAN CORPUSCULAR HGB CONC 31.4 g/dl (31.0-37.0); MEAN PLATELET VOLUME 9.9 fl (7.0-11.0); MONO # 0.9 (0.1-0.6); MONO % 10.4 % (1.0-6.0); RBC 4.05 10^6/uL (3.5-6.1); RED CELL DISTRIBUTION WIDTH 18.5 % (11.5-14.5)
[2017-07-31 12:25] LABS: INR 1.04 (0.93-1.08)
[2017-07-31 12:26] LABS: PARTIAL THROMBOPLASTIN TIME 30.9 Seconds (25.1-36.5)
[2017-07-31 12:32] LABS: TROPONIN I < 0.01 ng/mL
[2017-07-31 12:33] LABS: ALB/GLOB RATIO 1.2 (1.1-1.8); ALBUMIN 4.5 g/dL (3.0-4.8); ALT/SGPT 25 U/L (7-56); AST/SGOT 31 U/L (14-36); BLOOD UREA NITROGEN 8 mg/dL (7-21); CALCIUM 9.6 mg/dL (8.4-10.5); GFR AFRICAN-AMERICAN > 60; GFR NON-AFRICAN AMERICAN > 60; MAGNESIUM 1.8 mg/dL (1.7-2.2)
[2017-07-31 12:46] LABS: CK MB% 2.8 % (2.5-3.0); CK-MB 12.7 ng/mL (0.0-3.6)
--- NOTE | 2017-07-31 13:01 | RAD ---
HISTORY: fall COMPARISON: 04/03/2017 FINDINGS: LUNGS: No active pulmonary disease. PLEURA: No significant pleural effusion identified, no pneumothorax apparent. CARDIOVASCULAR: Normal. OSSEOUS STRUCTURES: No significant abnormalities. VISUALIZED UPPER ABDOMEN: Normal. OTHER FINDINGS: None. IMPRESSION: No active disease.
--- NOTE | 2017-07-31 13:23 | RAD ---
PROCEDURE: Radiographs of the left humerus. HISTORY: fall COMPARISON: None. FINDINGS: BONES: Normal. No fracture or focal lesion. SOFT TISSUES: Normal. OTHER FINDINGS: Elbow fracture reported separately IMPRESSION: Normal radiographs of left humerus.
--- NOTE | 2017-07-31 13:24 | RAD ---
PROCEDURE: Radiographs of the left elbow. HISTORY: fall COMPARISON: No prior. FINDINGS: BONES: There is a displaced fracture of the olecranon JOINTS: Normal. No osteoarthritis. SOFT TISSUES: Normal. JOINT EFFUSION: None. OTHER FINDINGS: None IMPRESSION: There is a displaced fracture of the olecranon
--- NOTE | 2017-07-31 13:26 | RAD ---
PROCEDURE: Pelvis single view HISTORY: fall COMPARISON: TECHNIQUE: Single view FINDINGS: There is a left hip prosthesis with no dislocation or loosening. No evidence of fracture. IMPRESSION: Negative study
[2017-07-31] MEDS: Oxycodone/Acetaminophen 5/325 mg Tab PO PRN ×2 (14:06→22:14)
[2017-07-31 14:11] VITALS: RESP 18
--- NOTE | 2017-07-31 16:06 | CARD ---
APPROVED REPORT EKG Measurement Heart [id number] <Conclusion> Normal sinus rhythm Normal ECG
[2017-07-31 17:48] VITALS: BMI 17.6
[2017-07-31] MEDS ORDERED: Pneumococcal 23-Valent Vaccine IM ONE (17:48)
[2017-07-31] MEDS ORDERED: Influenza Vaccine 60 mcg/0.5 mL SYR (4YR UP) IM ONE (17:48)
--- NOTE | 2017-08-01 02:52 | CON ---
DATE: ORTHOPEDIC CONSULT REPORT HISTORY OF PRESENT ILLNESS: The patient is a 72-year-old female, lives at home alone in an apartment with a kitten, sustained a fall yesterday, a day before admission, with a past history of falling a few times, in this juncture on her left elbow. X-ray shows olecranon fracture at left elbow with no dislocation, it is mildly displaced. It is on her left arm and she is right-hand dominant. We took all the rings off her fingers, 4 in total, and a bracelet on the right wrist. She is going to be admitted to the medical service for observation and evaluation of syncope and they are to put her in a posterior splint on the left elbow. So I am going to watch her and decide if she needs ORIF surgery or not. I will evaluate and check on the swelling as she is in the hospital. The chances are she is not going to need surgery because she does not want it and it looks like after it heals in 6 to 8 weeks, even with she should have a functional left elbow. The trouble is she lives alone and I would hate to see her go home alone because she falls a lot. So I will get social work involved to see if we should get long-term placement because she is very frail and weak. FINAL DIAGNOSIS: Displaced left olecranon fracture. I will follow her closely. Davon Keyes DO
[2017-08-01] MEDS: Oxycodone/Acetaminophen 5/325 mg Tab PO PRN ×2 (05:37→13:31)
[2017-08-01] MEDS: Albuterol-Ipratrop 3 mg / 0.5 (3 ml) UD IH SCH ×2 (07:21→11:19)
[2017-08-01 07:46] VITALS: BP 113/63; PULSE 74; TEMP 98.4; O2SAT 96
[2017-08-01] MEDS ORDERED: Budesonide 0.5 mg/2 ml Inhal Susp UD IH SCH (08:00)
[2017-08-01] MEDS ORDERED: Arformoterol 15 mcg/2 ml Inh Sol IH SCH (08:00)
[2017-08-01] MEDS ORDERED: Enoxaparin 40 mg Syringe SC SCH (10:00)
--- NOTE | 2017-08-03 07:24 | HP ---
DATE: 07/31/2017 REASON FOR ADMISSION: Recurrent falls and left elbow fracture. HISTORY OF PRESENT ILLNESS: A 72-year-old female with history of foot deformity at her ankle level with gait disorder due to the her ankle problem. The patient was walking across the street, she fell, hit her elbow that got little bit swollen initially, that overnight developed into more swelling and more pain. Came into the ER and x-ray shows fracture. The patient was admitted overnight for pain management and evaluation by orthopedics. The patient also had x-rays done for her hip. The patient denied any dizziness, denied any chest pain, denied any nausea, swelling or she has no cardiac history. ALLERGIES: SHE IS ALLERGIC TO TORADOL. SOCIAL HISTORY: She smokes, but no drinking. FAMILY HISTORY: Noncontributory. PAST MEDICAL HISTORY: She does have chronic deformity of her both ankles with gait disorder. She does have COPD. She does have chronic pain, chronic osteoarthritis. She does also have ischemic bowel with stent placement for mesenteric ischemia and questionable history of congestive heart failure. REVIEW OF SYSTEMS: As in the present illness, gait disorder, chronic arthritis, chronic pain. PHYSICAL EXAMINATION: VITAL SIGNS: Temperature 98.2, heart rate 70, blood pressure 147/73, respirations 18, saturation 98% on 2 L. HEAD AND NECK EXAMINATION: Normal. No JVD, no thyromegaly. CHEST: Clear. Good air entry. CARDIAC: First sound and second sound normal. ABDOMEN: Soft, nontender. EXTREMITIES: There is no edema. There is ankle deformity both of them, right more than left and the left elbow swollen, more diffuse now and tender. NEUROLOGIC: Normal. LABORATORY DATA: White count 9, hemoglobin 12.1, hematocrit 38.5, platelets 286. Chemistry: Sodium 142, potassium 4, chloride 103, bicarbonate 28, BUN 8, creatinine 0.6. Liver function test is normal. Total CPK 461 and troponin was negative, 0.01. Elbow x-ray showed displaced fractures and she also had an electrocardiogram, which was reported as sinus rhythm, normal EKG. ADMITTING DIAGNOSES: Left elbow fracture status post fall, gait disorder. The patient did not use a cane, she does have a cane and a walker at home. IMPRESSION AND PLAN: This is a 72-year-old female, she came in with status post fall, elbow fractures, etiology of the fall is noncardiac and non-neurologic, it is probably musculoskeletal and gait disorder. The patient usually walks with a cane, she did not use the cane. We will admit the patient for observations and we will get also many consultations and cardiology will give her Percocet p.r.n. for pain and they will also medically test her, will do a test in the morning. 2. We will continue nebulizer treatment for underlying chronic obstructive pulmonary disease, continue Percocet, continue Lyrica. We will give iron pills also, as well as to continue Plavix since she go to home. I will hold it today on day of admission and continue Lasix 20 mg p.o. daily. 3. Chronic osteoarthritis, chronic ankle pain. We will give her Percocet. 4. Chronic obstructive pulmonary disease. Continue nebulizers. 5. Anemia. Continue iron. 6. History of the edema, lower extremity. She is in Lasix. Continue current therapy. Temo Peña MD
--- NOTE | 2017-08-03 09:17 | DS ---
ORTHOPEDIC DISCHARGE REPORT HISTORY OF PRESENT ILLNESS: A 72-year-old frail female, lives at home alone. She has a cane at home. She does have a stable left elbow fracture that does not need surgery. She is right-hand dominant. It is a small olecranon fracture that will heal without surgery. I took of her cast and started on range of motion and to wear protective sling when moving about or in crowds. In the bed she does not need the sling. I told her how to use and I will see her in the office in 2 or 3 weeks. I gave her my phone number, but she is quite able to live at home alone and she does have help at home though, so she is not really alone 24 x 7. FINAL DIAGNOSIS: Mildly-displaced left olecranon fracture treatable with a closed treatment with a sling in 6 weeks of protection. I will see her in the office in 2 to 3 weeks. Davon Keyes DO
--- NOTE | 2017-08-03 19:04 | DS ---
SUBJECTIVE: The patient is status post left elbow cast, seen by Dr. Keyes. She has no other complaints except pain at the left elbow plus her ankles. Patient does have cane and she wants to go home. She has no other complaints. Patient advised to drink more fluids because of high CPK. She has no other complaints. PHYSICAL EXAMINATION: VITAL SIGNS: Temperature 98.4, heart rate 74, blood pressure 115/63, respirations 18, saturations 96% on 2 L nasal cannula. HEAD AND NECK: Normal. No JVD. No thyromegaly. CHEST: Clear. Good air entry. CARDIAC: First sound and second sound are normal. ABDOMEN: Soft. Nontender. EXTREMITIES: No edema. Deformed ankles. NEUROLOGIC: Normal. The patient was seen by Dr. Keyes. put in. The patient is stable, wants to go home. We will discharge the patient home, to be continued all the previous medications including Plavix and baby aspirin. DISCHARGE DIAGNOSES: 1. Left elbow fracture. 2. Gait disorder. 3. Osteoarthritis with severe arthritis of her ankles and deformity. 4. History of chronic leg edema. 5. Chronic obstructive pulmonary disease. PLAN: Patient should be discharged on her previous medication plus Percocet one every 6-hours p.r.n., only p.r.n. basis. She should not take her tramadol. Patient advised, she understands. Continue Lyrica 50 mg b.i.d., use it more at night than in the morning, so you avoid any dizziness. Continue nebulizer treatment, Ventolin, iron pills, Lasix, aspirin, and Plavix. Follow up in the office within a week. Discharge diagnoses as above. Temo Peña MD
== END 2017-08-01 14:40 | disposition home or self-care (01) ==
LOC: ED 10:37 → ERH 13:48 → 5RNO 15:57
PROVIDERS: ADMIT Internal Medicine; ATTEND Internal Medicine
DX: S52.022A Displaced fracture of olecranon process without intraarticular extension of left ulna, initial encounter for closed fracture (principal); W19.XXXA Unspecified fall, initial encounter; Y92.410 Unspecified street and highway as the place of occurrence of the external cause; Z91.81 History of falling; D64.9 Anemia, unspecified; F17.200 Nicotine dependence, unspecified, uncomplicated; J44.9 Chronic obstructive pulmonary disease, unspecified; M19.90 Unspecified osteoarthritis, unspecified site; Z96.642 Presence of left artificial hip joint; Z88.6 Allergy status to analgesic agent; Z87.892 Personal history of anaphylaxis; R40.2412 Glasgow coma scale score 13-15, at arrival to emergency department; G89.29 Other chronic pain; M25.579 Pain in unspecified ankle and joints of unspecified foot; M19.072 Primary osteoarthritis, left ankle and foot; M19.071 Primary osteoarthritis, right ankle and foot; R26.9 Unspecified abnormalities of gait and mobility
CPT/HCPCS: 29105; 71045; 72170; 73060; 73080; 80053; 82550; 82553; 83615; 83735; 84484; 85025; 85610; 85730; 93005; 94640; 96372; 99285; G0378; J1650

== ENCOUNTER 2017-11-07 06:35 | Emergency (ER) | payer MEDICARE, MEDICAID ==
[2017-11-07 06:55] VITALS: TEMP 97.8; BMI 16.2
--- NOTE | 2017-11-07 07:03 | ED PDOC ---
Arrival/HPI - General Chief Complaint: Trauma Time Seen by Provider: 11/07/17 06:56 Historian: Patient - History of Present Illness Time/Duration: Prior to Arrival Symptom Onset: Sudden Symptom Course: Unchanged Severity Level: Moderate Associated Symptoms (Text): 11/07/17 07:01 Patient reports she got up to use the bathroom and tripped over her cane injuring her dominant right wrist. She denies any other injury or trauma. Complains of chronic ankle pain similar to previous admission and no different. Past Medical History - Provider Review Nursing Documentation Reviewed: Yes - Infectious Disease Hx of Infectious Diseases: None - Cardiac Hx Cardiac Disorders: No Hx Pacemaker: No Hx Peripheral Vascular Disease: Yes (DVT) - Pulmonary Hx Respiratory Disorders: Yes (SMOKED CIGARETTES. QUIT 01-04-17) Hx Chronic Obstructive Pulmonary Disease (COPD): Yes - Neurological Hx Neurological Disorder: Yes (SYNCOPE? 07-31-17) HX Cerebrovascular Accident: Yes - HEENT Hx HEENT Disorder: Yes (WEARS RX GLASSES) - Renal Hx Renal Disorder: No - Endocrine/Metabolic Hx Endocrine Disorders: No - Hematological/Oncological Hx Blood Disorders: No - Integumentary Hx Dermatological Disorder: No - Musculoskeletal/Rheumatological Hx Musculoskeletal Disorders: Yes (L HIP REPLACEMENT,L HIP PROSTHESIS) Hx Falls: Yes (MULTIPLE) Hx Fractures: Yes (ELBOW FX 07-31-17) Hx Unsteady Gait: Yes (CANE/WALKER) - Gastrointestinal Hx Gastrointestinal Disorders: Yes (GI BLEED) - Genitourinary/Gynecological Hx Genitourinary Disorders: No - Psychiatric Hx Psychophysiologic Disorder: No Hx Anxiety: No Hx Emotional Abuse: No Hx Physical Abuse: No Hx Substance Use: No - Surgical History Hx Joint Replacement: Yes (left hip) Hx Orthopedic Surgery: Yes Other/Comment: Bowel obstruction - Anesthesia Hx Anesthesia Reactions: No Hx Malignant Hyperthermia: No - Suicidal Assessment Feels Threatened In Home Enviroment: No Family/Social History - Physician Review Nursing Documentation Reviewed: Yes Family/Social History: Unknown Family HX Smoking Status: Light Smoker < 10 Cigarettes Daily Hx Alcohol Use: No Hx Substance Use: No Allergies/Home Meds Allergies/Adverse Reactions: Allergies ketorolac [From Toradol] Allergy (Severe, Verified 11/07/17 06:36) ANAPHYLAXIS Home Medications: Home Meds Medication Instructions Recorded Confirmed Ferrous Sulfate [Ferosul] 325 mg PO DAILY 02/21/17 11/07/17 Albuterol HFA [Ventolin HFA 90 1 puff INH PRN PRN 11/07/17 11/07/17 mcg/actuation (8 g)] Montelukast Sodium [Singulair] 10 mg PO DAILY 11/07/17 11/07/17 traMADol [Ultram] 50 mg PO BID 11/07/17 11/07/17 Review of Systems - Physician Review All systems were reviewed & negative as marked: Yes Physical Exam Vital Signs Reviewed: Yes Vital Signs Temp Pulse Resp BP Pulse Ox 11/07/17 08:19 71 16 124/62 91 L 11/07/17 06:52 97.8 F 69 14 117/63 95 Temperature: Afebrile Blood Pressure: Normal Pulse: Regular Respiratory Rate: Normal Appearance: Positive for: Well-Appearing, Non-Toxic, Uncomfortable Pain Distress: Mild Mental Status: Positive for: Alert and Oriented X 3 - Systems Exam Head: Present: Atraumatic, Normocephalic Pupils: Present: PERRL Extroacular Muscles: Present: EOMI Conjunctiva: Present: Normal Upper Extremity: Present: NORMAL PULSES, Tenderness, Swelling, Neurovascularly Intact, Other (Right dorsal wrist is tender and swollen.). No: Cyanosis, Edema , Normal ROM, Erythema, Deformity Neurological: Present: GCS=15, CN II-XII Intact, Speech Normal, Motor Func Grossly Intact Skin: Present: Warm, Dry, Normal Color. No: Rashes Psychiatric: Present: Alert, Oriented x 3, Normal Insight, Normal Concentration Medical Decision Making ED Course and Treatment: 11/07/17 08:21 Dr Kumar [facility]. 11/07/17 09:18 Dr Kumar reduced and casted the wrist. 11/07/17 09:30 Right wrist x-ray: Creator : Temo Varma MD FINDINGS: BONES: There is impacted apparently comminuted fracture distal right radius with dorsal angulation of the distal fragment. JOINTS: Degenerative changes seen 1st metacarpal -trapezial articulation. Lesser on multi articular degenerative changes are also present SOFT TISSUES: Normal. OTHER FINDINGS: None. IMPRESSION: Impacted apparently comminuted fracture distal right radius with dorsal angulation of the distal fragment. - RAD Interpretation Radiology Orders: 11/07/17 07:00 WRIST, RIGHT 3 VIEWS [RAD] Stat Right wrist shows a Colles' fracture. Nurse Case Management: ED Physician - Medication Orders Current Medication Orders: Discontinued Medications Oxycodone/Acetaminophen (Percocet 5/325 Mg Tab) 2 tab PO STAT STA Stop: 11/07/17 08:05 Last Admin: 11/07/17 08:33 Dose: 2 tab MAR Pain Assessment Document 11/07/17 08:33 OCS (Rec: 11/07/17 08:34 OCS [id number]) Pain Reassessment Is this a pain reassessment? Yes Sleep Is patient sleeping during reassessment? No Presence of Pain Presence of Pain Yes Pain Scale Used Pain Scale Used Numeric Location Left, Right or Bilateral Right Pain Location Body Site Wrist Description Description Constant Intensity of Pain at present 10 Pain Behavior Facial Grimacing Aggravating Factors ADL's - Scribe Statement The provider has reviewed the documentation as recorded by the Scribe Ya Spence Provider Scribe Attestation: All medical record entries made by the Scribe were at my direction and personally dictated by me. I have reviewed the chart and agree that the record accurately reflects my personal performance of the history, physical exam, medical decision making, and the department course for this patient. I have also personally directed, reviewed, and agree with the discharge instructions and disposition. Disposition/Present on Arrival - Present on Arrival Any Indicators Present on Arrival: No History of DVT/PE: No History of Uncontrolled Diabetes: No Urinary Catheter: No History of Decub. Ulcer: No History Surgical Site Infection Following: None - Disposition Have Diagnosis and Disposition been Completed?: Yes Diagnosis: Fracture, Colles, left, closed Disposition: HOME/ ROUTINE Disposition Time: 09:16 Patient Plan: Discharge Patient Problems: Current Active Problems Problem Status Onset Fracture, Colles, left, closed Acute Condition: IMPROVED Discharge Instructions (ExitCare): Colles' Fracture (DC) Additional Instructions: Rest ice and elevation. Prescriptions: oxyCODONE/Acetaminophen [Percocet 5/325 mg Tab] 1 ea PO Q6 #15 tab Referrals: Temo Peña MD [Primary Care Provider] - Follow up with primary Forms: [employer] (Slovak)
[2017-11-07] MEDS ORDERED: Oxycodone/Acetaminophen 5/325 mg Tab PO STA (08:04)
--- NOTE | 2017-11-07 09:31 | RAD ---
PROCEDURE: Right Wrist Radiographs. HISTORY: Trauma COMPARISON: None. FINDINGS: BONES: There is impacted apparently comminuted fracture distal right radius with dorsal angulation of the distal fragment. JOINTS: Degenerative changes seen 1st metacarpal -trapezial articulation. Lesser on multi articular degenerative changes are also present SOFT TISSUES: Normal. OTHER FINDINGS: None. IMPRESSION: Impacted apparently comminuted fracture distal right radius with dorsal angulation of the distal fragment.
[2017-11-07 09:48] VITALS: BP 125/70; PULSE 68; RESP 17; O2SAT 93
--- NOTE | 2017-11-07 20:47 | CON ---
DATE: 11/07/2017 ORTHOPEDIC CONSULT HISTORY OF PRESENT ILLNESS: She came to [facility] Emergency Room after she fell at home with a swollen right wrist. X-ray shows impacted right distal radius fracture with mild angulation and with very much swelling at the dorsal part of the wrist, but not too severe to put a cast on. The fracture is impacted with slight dorsal angulation, so we improved the position and put her on a short-arm cast to be more secure. She does live alone and I will follow her closely and see her in the office in about five days and she is to keep it from getting wet and do not put anything down the cast and to put on right arm sling and she was told about the ecchymosis going to form on her fingers because of the bleeding of the fracture. I am going to see her in about four to five days. FINAL DIAGNOSIS: Impacted dorsal displaced fracture of right distal radius. Placed in a short-arm well padded cast. Plan is to keep the cast on for four weeks. She should get the functional results without surgery. Davon Keyes DO SHARA
== END 2017-11-07 09:48 | disposition home or self-care (01) ==
LOC: ED 06:35
DX: S52.532A Colles' fracture of left radius, initial encounter for closed fracture (principal); W01.0XXA Fall on same level from slipping, tripping and stumbling without subsequent striking against object, initial encounter; Y92.009 Unspecified place in unspecified non-institutional (private) residence as the place of occurrence of the external cause; F17.210 Nicotine dependence, cigarettes, uncomplicated

== ENCOUNTER 2017-12-02 18:13 | Emergency (ER) | payer MEDICARE, MEDICAID ==
[2017-12-02 18:19] VITALS: BMI 17.5
[2017-12-02 18:22] VITALS: TEMP 97.9
[2017-12-02] MEDS ORDERED: Morphine 2 mg/2 mL syringe ONE (18:55)
[2017-12-02] MEDS ORDERED: TraMADol/Apap 37.5/325 mg Tab PO STA (19:06)
--- NOTE | 2017-12-02 19:07 | ED PDOC ---
Arrival/HPI - General Chief Complaint: Finger,Hand,&Wrist Time Seen by Provider: 12/02/17 19:02 Historian: Patient - History of Present Illness Narrative History of Present Illness (Text): 12/02/17 19:06 This 72 yo female presents to this ED c/o right wrist pain. Patient stated she was Dx. wrist fracture x 3 weeks ago. She was seen by Dr. Keyes, who placed a cast. Patient stated she saw Dr. Keyes today who removed cast. Patient stated she continues with pain, and she is requesting pain medication. Denies recent fall or other somatic complains. Time/Duration: Other (see hpi) Quality: Aching Context: Home Past Medical History - Provider Review Nursing Documentation Reviewed: Yes - Infectious Disease Hx of Infectious Diseases: None - Cardiac Hx Cardiac Disorders: No Hx Pacemaker: No Hx Peripheral Vascular Disease: Yes (DVT) - Pulmonary Hx Respiratory Disorders: Yes (SMOKED CIGARETTES. QUIT 01-04-17) Hx Chronic Obstructive Pulmonary Disease (COPD): Yes - Neurological Hx Neurological Disorder: Yes (SYNCOPE? 07-31-17) HX Cerebrovascular Accident: Yes - HEENT Hx HEENT Disorder: Yes (WEARS RX GLASSES) - Renal Hx Renal Disorder: No - Endocrine/Metabolic Hx Endocrine Disorders: No - Hematological/Oncological Hx Blood Disorders: No - Integumentary Hx Dermatological Disorder: No - Musculoskeletal/Rheumatological Hx Musculoskeletal Disorders: Yes (L HIP REPLACEMENT,L HIP PROSTHESIS) Hx Falls: Yes (MULTIPLE) Hx Fractures: Yes (ELBOW FX 07-31-17) Hx Unsteady Gait: Yes (CANE/WALKER) - Gastrointestinal Hx Gastrointestinal Disorders: Yes (GI BLEED) - Genitourinary/Gynecological Hx Genitourinary Disorders: No - Psychiatric Hx Psychophysiologic Disorder: No Hx Anxiety: No Hx Emotional Abuse: No Hx Physical Abuse: No Hx Substance Use: No - Surgical History Hx Joint Replacement: Yes (left hip) Hx Orthopedic Surgery: Yes Other/Comment: Bowel obstruction - Anesthesia Hx Anesthesia Reactions: No Hx Malignant Hyperthermia: No - Suicidal Assessment Feels Threatened In Home Enviroment: No Family/Social History - Physician Review Nursing Documentation Reviewed: Yes Family/Social History: Other (noncontributory) Smoking Status: Light Smoker < 10 Cigarettes Daily Hx Alcohol Use: No Hx Substance Use: No Allergies/Home Meds Allergies/Adverse Reactions: Allergies ketorolac [From Toradol] Allergy (Severe, Verified 11/07/17 06:36) ANAPHYLAXIS Home Medications: Home Meds Medication Instructions Recorded Confirmed Ferrous Sulfate [Ferosul] 325 mg PO DAILY 02/21/17 12/02/17 Albuterol HFA [Ventolin HFA 90 1 puff INH PRN PRN 11/07/17 12/02/17 mcg/actuation (8 g)] Montelukast Sodium [Singulair] 10 mg PO DAILY 11/07/17 12/02/17 traMADol [Ultram] 50 mg PO BID 11/07/17 12/02/17 Calcium Carbonate [Oscal] 1 tab PO BID 12/02/17 12/02/17 Potassium Chloride [Klor-Con 1 tab PO DAILY 12/02/17 12/02/17 Sprinkle] Review of Systems - Review of Systems Constitutional: Normal. absent: Fatigue, Weight Change, Fevers Eyes: Normal ENT: Normal Respiratory: Normal Cardiovascular: Normal Gastrointestinal: Normal Genitourinary Female: Normal Musculoskeletal: Other (right wrist pain) Skin: Normal Neurological: Normal Endocrine: Normal Hemo/Lymphatic: Normal Psychiatric: Normal Physical Exam Vital Signs Temp Pulse Resp BP Pulse Ox 12/02/17 18:22 97.9 F 96 H 18 108/72 97 Temperature: Afebrile Blood Pressure: Normal Pulse: Regular Respiratory Rate: Normal Appearance: Positive for: Well-Appearing, Non-Toxic, Comfortable Pain Distress: None Mental Status: Positive for: Alert and Oriented X 3 - Systems Exam Head: Present: Atraumatic, Normocephalic Mouth: Present: Moist Mucous Membranes Neck: Present: Normal Range of Motion Upper Extremity: Present: Normal Inspection, NORMAL PULSES, Tenderness (right distal radius tenderness), Neurovascularly Intact, Capillary Refill < 2s. No: Cyanosis, Edema, Erythema, Temperature Abnormalties, Deformity Lower Extremity: Present: Normal Inspection, NORMAL PULSES, Normal ROM Neurological: Present: GCS=15, CN II-XII Intact, Speech Normal, Motor Func Grossly Intact, Normal Sensory Function, Normal Cerebellar Funct, Gait Normal Skin: Present: Warm, Dry, Normal Color. No: Rashes Psychiatric: Present: Alert, Oriented x 3, Normal Insight, Normal Concentration Medical Decision Making ED Course and Treatment: 12/02/17 20:28 Re-evaluation. Patient feels better. Discussed results and plan with patient who expresses understanding. All questions answered and there is agreement with the plan to discharge home with instructions. Patient stable for discharge. Return if symptoms persist or worsen. Patient was recommended to f/u with Dr. Keyes office tomorrow. Take medication for pain as needed. Patient understands the risk of Percocet abuse, Fall, and constipation. Patient recommended not to drive or operate machinery for at least 12 hours if she takes Percocet. to return to ED if symptoms worsen. Re-evaluation Time: 20:28 Reassessment Condition: Re-examined, Improved - RAD Interpretation Narrative RAD Interpretations (Text): 12/02/17 20:27 Wrist x-rays: Healing distal radius Fx. It appears slight more angulation of distal radius when compare from previous x-rays Radiology Orders: 12/02/17 19:05 WRIST, RIGHT 3 VIEWS [RAD] Stat - Medication Orders Current Medication Orders: Discontinued Medications Tramadol/Acetaminophen (Ultracet 37.5/325 Mg) 1 tab PO STAT STA Stop: 12/02/17 19:07 Last Admin: 12/02/17 19:30 Dose: 1 tab MAR Pain Assessment Document 12/02/17 19:30 AD (Rec: 12/02/17 19:30 AD [facility] [place] Pain Reassessment Is this a pain reassessment? No Presence of Pain Presence of Pain Yes Description Intensity of Pain at present 5 Pain Behavior Facial Grimacing Disposition/Present on Arrival - Present on Arrival Any Indicators Present on Arrival: No History of DVT/PE: No History of Uncontrolled Diabetes: No Urinary Catheter: No History of Decub. Ulcer: No History Surgical Site Infection Following: None - Disposition Have Diagnosis and Disposition been Completed?: Yes Diagnosis: Wrist pain Disposition: HOME/ ROUTINE Disposition Time: 20:30 Patient Plan: Discharge Condition: GOOD Discharge Instructions (ExitCare): Colles' Fracture (DC) Additional Instructions: Call office for follow up visit in 1 day. Take medication for pain as needed. Do not drive or operate machinery for at least 12 hours. Percocet has the risk of abuse, constipation, so take it very carefully. You may need to take plain Tylenol instead of Percocet for pain. Continue with Velcro wrist splint as instructed by Dr. Keyes. Prescriptions: Docusate Sodium [Colace] 100 mg PO BID #20 capsule oxyCODONE/Acetaminophen [Percocet 5/325 mg Tab] 1 ea PO Q4H PRN #6 tab PRN Reason: Pain, Severe (8-10) Referrals: Temo Peña MD [Primary Care Provider] - Follow up with primary Davon Keyes DO [Staff Provider] - Follow up with primary Forms: [employer] (Icelandic)
[2017-12-02 20:59] VITALS: BP 110/75; PULSE 90; RESP 16; O2SAT 100
--- NOTE | 2017-12-03 08:38 | RAD ---
PROCEDURE: Right Wrist Radiographs. HISTORY: pain COMPARISON: None. FINDINGS: BONES: There is a transverse dorsally angulated fracture of the distal radius. JOINTS: Normal. No dislocation. SOFT TISSUES: Normal. OTHER FINDINGS: None. IMPRESSION: There is a transverse dorsally angulated fracture of the distal radius.
== END 2017-12-02 20:59 | disposition home or self-care (01) ==
LOC: ED 18:13
DX: M25.531 Pain in right wrist (principal)

== ENCOUNTER 2018-01-21 21:12 | Emergency (ER) | payer MEDICARE, MEDICAID ==
[2018-01-21 21:24] VITALS: BMI 17.9
[2018-01-21 21:31] VITALS: TEMP 98.1
--- NOTE | 2018-01-21 22:30 | ED PDOC ---
Arrival/HPI - General Chief Complaint: Trauma Time Seen by Provider: 01/21/18 21:13 Historian: Patient - History of Present Illness Narrative History of Present Illness (Text): 01/21/18 22:25 72yo female with pmhx of COPD bib EMS for left shoulder and ankle pain s/p trauma this night. States she tripped and fell down 2stairs while chasing her cat. States she landed on her left side. States pain is worse on her ankle/ foot. Admits to hitting her head on the floor. Denies LOC, nausea, vomiting, dizziness, focal weakness, any other complaint. Past Medical History - Provider Review Nursing Documentation Reviewed: Yes - Infectious Disease Hx of Infectious Diseases: None - Cardiac Hx Cardiac Disorders: No Hx Pacemaker: No Hx Peripheral Vascular Disease: Yes (DVT) - Pulmonary Hx Respiratory Disorders: Yes (SMOKED CIGARETTES. QUIT 01-04-17) Hx Chronic Obstructive Pulmonary Disease (COPD): Yes - Neurological Hx Neurological Disorder: Yes (SYNCOPE? 07-31-17) HX Cerebrovascular Accident: Yes - HEENT Hx HEENT Disorder: Yes (WEARS RX GLASSES) - Renal Hx Renal Disorder: No - Endocrine/Metabolic Hx Endocrine Disorders: No - Hematological/Oncological Hx Blood Disorders: No - Integumentary Hx Dermatological Disorder: No - Musculoskeletal/Rheumatological Hx Musculoskeletal Disorders: Yes (L HIP REPLACEMENT,L HIP PROSTHESIS) Hx Falls: Yes (MULTIPLE) Hx Fractures: Yes (ELBOW FX 07-31-17) Hx Unsteady Gait: Yes (CANE/WALKER) - Gastrointestinal Hx Gastrointestinal Disorders: Yes (GI BLEED) - Genitourinary/Gynecological Hx Genitourinary Disorders: No - Psychiatric Hx Psychophysiologic Disorder: No Hx Anxiety: No Hx Emotional Abuse: No Hx Physical Abuse: No Hx Substance Use: No - Surgical History Hx Joint Replacement: Yes (left hip) Hx Orthopedic Surgery: Yes Other/Comment: Bowel obstruction - Anesthesia Hx Anesthesia Reactions: No Hx Malignant Hyperthermia: No - Suicidal Assessment Feels Threatened In Home Enviroment: No Family/Social History - Physician Review Nursing Documentation Reviewed: Yes Family/Social History: Unknown Family HX Smoking Status: Heavy Smoker > 10 Cigarettes Daily Hx Alcohol Use: No Hx Substance Use: No Allergies/Home Meds Allergies/Adverse Reactions: Allergies ketorolac [From Toradol] Allergy (Severe, Verified 11/07/17 06:36) ANAPHYLAXIS Home Medications: Home Meds Medication Instructions Recorded Confirmed Ferrous Sulfate [Ferosul] 325 mg PO DAILY 02/21/17 12/02/17 Albuterol HFA [Ventolin HFA 90 1 puff INH PRN PRN 11/07/17 12/02/17 mcg/actuation (8 g)] Montelukast Sodium [Singulair] 10 mg PO DAILY 11/07/17 12/02/17 traMADol [Ultram] 50 mg PO BID 11/07/17 12/02/17 Calcium Carbonate [Oscal] 1 tab PO BID 12/02/17 12/02/17 Potassium Chloride [Klor-Con 1 tab PO DAILY 12/02/17 12/02/17 Sprinkle] Review of Systems - Physician Review All systems were reviewed & negative as marked: Yes - Review of Systems Constitutional: Normal Eyes: Normal ENT: Normal Respiratory: Normal Cardiovascular: Normal Gastrointestinal: Normal Genitourinary Female: Normal Musculoskeletal: Arthralgias (Left shoulder/ankle/foot) Skin: Normal Neurological: Normal Endocrine: Normal Hemo/Lymphatic: Normal Psychiatric: Normal Physical Exam Vital Signs Reviewed: Yes Vital Signs Temp Pulse Resp BP Pulse Ox 01/21/18 23:26 99 H 18 143/91 H 94 L 01/21/18 21:23 98.1 F 92 H 16 98 Temperature: Afebrile Blood Pressure: Normal Pulse: Regular Respiratory Rate: Normal Appearance: Positive for: Well-Appearing, Non-Toxic, Comfortable Pain Distress: None Mental Status: Positive for: Alert and Oriented X 3 - Systems Exam Head: Present: Atraumatic, Normocephalic Pupils: Present: PERRL Extroacular Muscles: Present: EOMI Conjunctiva: Present: Normal Mouth: Present: Moist Mucous Membranes Neck: Present: Normal Range of Motion Respiratory/Chest: Present: Clear to Auscultation, Good Air Exchange. No: Respiratory Distress, Accessory Muscle Use Cardiovascular: Present: Regular Rate and Rhythm, Normal S1, S2. No: Murmurs Abdomen: No: Tenderness, Distention, Peritoneal Signs Back: Present: Normal Inspection Upper Extremity: Present: Normal Inspection. No: Cyanosis, Edema Lower Extremity: Present: NORMAL PULSES, Normal ROM, Tenderness (Tenderness over the left medial malleolus), Swelling (LEft ankle), Neurovascularly Intact. No: Edema, Erythema Neurological: Present: GCS=15, CN II-XII Intact, Speech Normal Skin: Present: Warm, Dry, Normal Color. No: Rashes Psychiatric: Present: Alert, Oriented x 3, Normal Insight, Normal Concentration Medical Decision Making ED Course and Treatment: 01/22/18 01:45 PT presented for stated history. She was neurologically intact and in no distress. Head CT - No acute finding LEft shoulder/Ankle/foot xray - No acute fracture/dislocation. Posterior splint was placed and crutches was given. PT was referred to ortho. - RAD Interpretation Radiology Orders: 01/21/18 21:29 ANKLE LEFT 3 VIEWS ROUTINE [RAD] Stat FOOT LEFT 3 VIEWS ROUTINE [RAD] Stat SHOULDER LEFT [RAD] Stat 01/21/18 21:30 HEAD W/O CONTRAST [CT] Stat - Medication Orders Current Medication Orders: Discontinued Medications Tramadol HCl (Ultram) 50 mg PO STAT STA Stop: 01/21/18 21:31 Last Admin: 01/21/18 21:49 Dose: 50 mg [facility] Pain Assessment Document 01/21/18 21:49 OCS (Rec: 01/21/18 21:50 [id number] Pain Reassessment Is this a pain reassessment? Yes Sleep Is patient sleeping during reassessment? No Presence of Pain Presence of Pain No Pain Scale Used Pain Scale Used Numeric Location Left, Right or Bilateral Left Pain Location Body Site Face Back Lumbar Description Description Constant Intensity of Pain at present 10 Aggravating Factors ADL's Re-Assess: [facility] Pain Assessment Document 01/21/18 22:49 SMA (Rec: 01/21/18 23:29 SMA [id number] Pain Reassessment Is this a pain reassessment? Yes Sleep Is patient sleeping during reassessment? No Presence of Pain Presence of Pain No Pain Scale Used Pain Scale Used Numeric Location Left, Right or Bilateral Left Pain Location Body Site Ankle Description Description Dull Intensity of Pain at present 2 Disposition/Present on Arrival - Present on Arrival Any Indicators Present on Arrival: No History of DVT/PE: No History of Uncontrolled Diabetes: No Urinary Catheter: No History of Decub. Ulcer: No History Surgical Site Infection Following: None - Disposition Have Diagnosis and Disposition been Completed?: Yes Diagnosis: Ankle sprain, Foot sprain, Shoulder sprain Disposition: HOME/ ROUTINE Disposition Time: 23:10 Patient Plan: Discharge Patient Problems: Current Active Problems Problem Status Onset Ankle sprain Acute Foot sprain Acute Shoulder sprain Acute Condition: STABLE Discharge Instructions (ExitCare): Ankle Sprain, Shoulder Sprain (DC), Foot Sprain (DC) Additional Instructions: Follow up with orthopedist Return to ED for any new or worsening symptoms Prescriptions: traMADol [Ultram] 50 mg PO TID #12 tab Referrals: Temo Peña MD [Primary Care Provider] - Follow up with primary Davon Keyes DO [Staff Provider] - Follow up with primary Forms: [employer] (Slovak)
[2018-01-21 23:28] VITALS: BP 143/91; PULSE 99; RESP 18; O2SAT 94
--- NOTE | 2018-01-22 08:31 | CT ---
Date of service: 01/21/2018 PROCEDURE: CT HEAD WITHOUT CONTRAST. HISTORY: s/p trauma COMPARISON: None available. TECHNIQUE: Axial computed tomography images were obtained through the head/brain without intravenous contrast. Radiation dose: Total exam DLP = mGy-cm. This CT exam was performed using one or more of the following dose reduction techniques: Automated exposure control, adjustment of the mA and/or kV according to patient size, and/or use of iterative reconstruction technique. FINDINGS: HEMORRHAGE: No intracranial hemorrhage. BRAIN: No mass effect or edema. Extensive chronic periventricular white matter ischemic disease. No acute hemorrhage. VENTRICLES: Unremarkable. No hydrocephalus. CALVARIUM: Unremarkable. PARANASAL SINUSES: Unremarkable as visualized. No significant inflammatory changes. MASTOID AIR CELLS: Unremarkable as visualized. No inflammatory changes. OTHER FINDINGS: None. IMPRESSION: Extensive chronic periventricular white matter ischemic disease. No acute hemorrhage.
--- NOTE | 2018-01-22 08:58 | RAD ---
Date of service: 01/21/2018 PROCEDURE: Left Ankle Radiographs. HISTORY: ankle pain s/p trauma COMPARISON: None FINDINGS: BONES: Normal. No fracture. JOINTS: Normal. No osteoarthritis. Ankle mortise maintained. Talar dome intact SOFT TISSUES: Normal. OTHER FINDINGS: None. IMPRESSION: Normal left ankle radiographs.
--- NOTE | 2018-01-22 08:59 | RAD ---
Date of service: 01/21/2018 PROCEDURE: Left Foot Radiographs. HISTORY: foot pain s/p truama COMPARISON: None. FINDINGS: BONES: Normal. No fracture. JOINTS: Normal. SOFT TISSUES: Normal. OTHER FINDINGS: None. IMPRESSION: Normal left foot radiographs.
--- NOTE | 2018-01-22 09:00 | RAD ---
Date of service: 01/21/2018 PROCEDURE: Radiographs of the Left Shoulder HISTORY: shoulder pain s/p trauma COMPARISON: No prior. FINDINGS: BONES: Normal. No fracture. JOINTS: Normal. Glenohumeral and acromioclavicular joints preserved. No osteoarthritis. SOFT TISSUES: Normal. OTHER FINDINGS: None. IMPRESSION: Normal radiographs of the left shoulder.
== END 2018-01-22 01:15 | disposition home or self-care (01) ==
LOC: ED 21:12
DX: S93.402A Sprain of unspecified ligament of left ankle, initial encounter (principal); S93.602A Unspecified sprain of left foot, initial encounter; S43.402A Unspecified sprain of left shoulder joint, initial encounter; W10.9XXA Fall (on) (from) unspecified stairs and steps, initial encounter; Y92.009 Unspecified place in unspecified non-institutional (private) residence as the place of occurrence of the external cause

== ENCOUNTER 2018-01-23 12:53 | Emergency (ER) | payer MEDICARE, MEDICAID ==
[2018-01-23 12:54] VITALS: BMI 17.9
[2018-01-23 13:13] VITALS: TEMP 98.1
--- NOTE | 2018-01-23 13:46 | ED PDOC ---
Arrival/HPI - General Chief Complaint: Trauma Time Seen by Provider: 01/23/18 13:29 Historian: Patient, EMS - History of Present Illness Time/Duration: Other (2 days) Symptom Onset: Sudden Symptom Course: Worsening Quality: Aching Severity Level: Severe Associated Symptoms (Text): 01/23/18 13:43 Patient reports that 2 days prior to arrival she fell down 2 steps. She was seen in the emergency department. At that time she had negative x-rays of her right foot and right ankle and right shoulder. She also had a normal CT scan of the brain. She reports that now she has severe left ankle and left knee pain. She also reports that her right ankle pain is no better. There is a history of chronic bilateral foot and ankle pain. She states that the tramadol is not helping her. She usually takes Percocet. Past Medical History - Infectious Disease Hx of Infectious Diseases: None - Cardiac Hx Cardiac Disorders: No Hx Pacemaker: No Hx Peripheral Vascular Disease: Yes (DVT) - Pulmonary Hx Respiratory Disorders: Yes (SMOKED CIGARETTES. QUIT 01-04-17) Hx Chronic Obstructive Pulmonary Disease (COPD): Yes - Neurological Hx Neurological Disorder: Yes (SYNCOPE? 07-31-17) HX Cerebrovascular Accident: Yes - HEENT Hx HEENT Disorder: Yes (WEARS RX GLASSES) - Renal Hx Renal Disorder: No - Endocrine/Metabolic Hx Endocrine Disorders: No - Hematological/Oncological Hx Blood Disorders: No - Integumentary Hx Dermatological Disorder: No - Musculoskeletal/Rheumatological Hx Musculoskeletal Disorders: Yes (L HIP REPLACEMENT,L HIP PROSTHESIS) Hx Falls: Yes (MULTIPLE) Hx Fractures: Yes (ELBOW FX 07-31-17) Hx Unsteady Gait: Yes (CANE/WALKER) - Gastrointestinal Hx Gastrointestinal Disorders: Yes (GI BLEED) - Genitourinary/Gynecological Hx Genitourinary Disorders: No - Psychiatric Hx Psychophysiologic Disorder: No Hx Anxiety: No Hx Emotional Abuse: No Hx Physical Abuse: No Hx Substance Use: No - Surgical History Hx Joint Replacement: Yes (left hip) Hx Orthopedic Surgery: Yes Other/Comment: Bowel obstruction - Anesthesia Hx Anesthesia Reactions: No Hx Malignant Hyperthermia: No - Suicidal Assessment Feels Threatened In Home Enviroment: No Family/Social History - Physician Review Nursing Documentation Reviewed: Yes Family/Social History: Unknown Family HX Smoking Status: Light Smoker < 10 Cigarettes Daily Hx Alcohol Use: No Hx Substance Use: No Allergies/Home Meds Allergies/Adverse Reactions: Allergies ketorolac [From Toradol] Allergy (Severe, Verified 01/23/18 13:09) ANAPHYLAXIS Home Medications: Home Meds Medication Instructions Recorded Confirmed Ferrous Sulfate [Ferosul] 325 mg PO DAILY 02/21/17 12/02/17 Albuterol HFA [Ventolin HFA 90 1 puff INH PRN PRN 11/07/17 12/02/17 mcg/actuation (8 g)] Montelukast Sodium [Singulair] 10 mg PO DAILY 11/07/17 12/02/17 traMADol [Ultram] 50 mg PO BID 11/07/17 12/02/17 Calcium Carbonate [Oscal] 1 tab PO BID 12/02/17 12/02/17 Potassium Chloride [Klor-Con 1 tab PO DAILY 12/02/17 12/02/17 Sprinkle] Review of Systems - Physician Review All systems were reviewed & negative as marked: Yes - Review of Systems Constitutional: Fatigue. absent: Fevers Respiratory: Normal Cardiovascular: Normal Gastrointestinal: Normal Genitourinary Female: Normal Neurological: Normal Physical Exam Vital Signs Temp Pulse Resp BP Pulse Ox 01/23/18 13:09 98.1 F 90 20 109/51 L 93 L Temperature: Afebrile Blood Pressure: Normal Pulse: Regular Respiratory Rate: Normal Appearance: Positive for: Well-Appearing, Non-Toxic, Uncomfortable, Cachectic, Other (Thin cachectic and chronically ill-appearing) Pain Distress: Moderate Mental Status: Positive for: Alert and Oriented X 3 - Systems Exam Head: Present: Atraumatic, Normocephalic Neck: Present: Normal Range of Motion Back: Present: Normal Inspection Upper Extremity: Present: Other (Left forearm ecchymosis. Right wrist Velcro splint) Lower Extremity: Present: NORMAL PULSES, Normal ROM, Tenderness, Neurovascularly Intact, Other (Left ankle tenderness and ecchymosis. No swelling. Full range of motion. Left knee tenderness and anterior ecchymosis. No swelling. Full range of motion.). No: Edema, CALF TENDERNESS, Cyanosis, Karolyn's Sign, Swelling, Erythema, Deformity Neurological: Present: GCS=15, CN II-XII Intact, Speech Normal, Motor Func Grossly Intact Skin: Present: Warm, Dry, Normal Color, Other (Ecchymosis as above). 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 - RAD Interpretation Radiology Orders: 01/23/18 13:42 ANKLE LEFT 3 VIEWS ROUTINE [RAD] Stat KNEE LEFT 2 VIEWS (AP & LAT) [RAD] Stat Ankle 3 view shows no fracture or dislocation. Knee 2 view shows no fracture or dislocation. Cloud Engagement Partner: ED Physician Disposition/Present on Arrival - Present on Arrival Any Indicators Present on Arrival: No History of DVT/PE: No History of Uncontrolled Diabetes: No Urinary Catheter: No History of Decub. Ulcer: No History Surgical Site Infection Following: None - Disposition Have Diagnosis and Disposition been Completed?: Yes Diagnosis: Knee contusion, Ankle sprain Disposition: HOME/ ROUTINE Disposition Time: 15:10 Patient Plan: Discharge Condition: FAIR Discharge Instructions (ExitCare): Ankle Sprain, Contusion (DC) Additional Instructions: Rest moist heat and elevation. Follow-up with PMD. Follow up in ER as needed. Prescriptions: oxyCODONE/Acetaminophen [Percocet 5/325 mg Tab] 1 ea PO Q6 #10 tab Forms: [employer] (Croatian)
--- NOTE | 2018-01-23 15:25 | RAD ---
Date of service: 01/23/2018 PROCEDURE: Left Ankle Radiographs. HISTORY: Trauma COMPARISON: None FINDINGS: BONES: Normal. No fracture. JOINTS: Normal. No osteoarthritis. Ankle mortise maintained. Talar dome intact SOFT TISSUES: Normal. OTHER FINDINGS: None. IMPRESSION: No acute findings related to/accounting for the clinical presentation.
--- NOTE | 2018-01-23 15:26 | RAD ---
Date of service: 01/23/2018 PROCEDURE: Left Knee Radiographs. HISTORY: Posttraumatic pain COMPARISON: None. FINDINGS: BONES: Normal. No fracture. JOINTS: Normal. No osteoarthritis. JOINT EFFUSION: None. OTHER FINDINGS: None. IMPRESSION: No acute findings related to/accounting for the clinical presentation.
[2018-01-23 16:48] VITALS: BP 107/68; PULSE 88; RESP 18; O2SAT 94
== END 2018-01-23 16:35 | disposition home or self-care (01) ==
LOC: ED 12:53
DX: S80.02XD Contusion of left knee, subsequent encounter (principal); S93.402D Sprain of unspecified ligament of left ankle, subsequent encounter; W10.9XXD Fall (on) (from) unspecified stairs and steps, subsequent encounter

== ENCOUNTER 2018-02-22 11:10 | Emergency (ER) | payer MEDICARE, MEDICAID ==
[2018-02-22 11:19] VITALS: RESP 18
--- NOTE | 2018-02-22 12:03 | ED PDOC ---
Arrival/HPI <Cipriano Phan - Last Filed: 02/22/18 17:22> - General Historian: Patient - Critical Care Critical Care Minutes: 30 minutes - History of Present Illness Time/Duration: 1/2 hour Symptom Onset: Sudden Symptom Course: Unchanged Quality: Throbbing Severity Level: 10 <Darnell Saini - Last Filed: 02/22/18 18:39> - General Chief Complaint: Lower Extremity Problem/Injury Time Seen by Provider: 02/22/18 11:11 - History of Present Illness Narrative History of Present Illness (Text): 02/22/18 12:04 Patient is a 72 year old female with a past medical history of COPD presenting to the ED with right knee pain. Patient states that she was chasing her cat today and fell down on her knees. Patient denies hitting her head. She describes the pain as achy, 10/10, and non-radiating. Patient states that she cannot take toradol as she is allergic to it. Patient denies headache, fevers, shortness of breath, chest pain, abdominal pain, or urinary symptoms. (Darnell Saini) Past Medical History - Infectious Disease Hx of Infectious Diseases: None - Cardiac Hx Cardiac Disorders: No Hx Pacemaker: No Hx Peripheral Vascular Disease: Yes (DVT) - Pulmonary Hx Respiratory Disorders: Yes (SMOKED CIGARETTES. QUIT 01-04-17) Hx Chronic Obstructive Pulmonary Disease (COPD): Yes - Neurological Hx Neurological Disorder: Yes (SYNCOPE? 07-31-17) HX Cerebrovascular Accident: Yes - HEENT Hx HEENT Disorder: Yes (WEARS RX GLASSES) - Renal Hx Renal Disorder: No - Endocrine/Metabolic Hx Endocrine Disorders: No - Hematological/Oncological Hx Blood Disorders: No - Integumentary Hx Dermatological Disorder: No - Musculoskeletal/Rheumatological Hx Musculoskeletal Disorders: Yes (L HIP REPLACEMENT,L HIP PROSTHESIS) Hx Falls: Yes (MULTIPLE) Hx Fractures: Yes (ELBOW FX 07-31-17) Hx Unsteady Gait: Yes (CANE/WALKER) - Gastrointestinal Hx Gastrointestinal Disorders: Yes (GI BLEED) - Genitourinary/Gynecological Hx Genitourinary Disorders: No - Psychiatric Hx Psychophysiologic Disorder: No Hx Anxiety: No Hx Emotional Abuse: No Hx Physical Abuse: No Hx Substance Use: No - Surgical History Hx Joint Replacement: Yes (left hip) Hx Orthopedic Surgery: Yes Other/Comment: Bowel obstruction - Anesthesia Hx Anesthesia Reactions: No Hx Malignant Hyperthermia: No - Suicidal Assessment Feels Threatened In Home Enviroment: No <Trena Sainii - Last Filed: 02/22/18 18:39> Family/Social History Family/Social History: No Known Family HX Smoking Status: Light Smoker < 10 Cigarettes Daily Hx Alcohol Use: No Hx Substance Use: No <MarceloshamarCristel tothanni - Last Filed: 02/22/18 18:39> Allergies/Home Meds <DelfinoCipriano luo - Last Filed: 02/22/18 17:22> <Cristel Sainianni - Last Filed: 02/22/18 18:39> Allergies/Adverse Reactions: Allergies ketorolac [From Toradol] Allergy (Severe, Verified 01/23/18 13:09) ANAPHYLAXIS Home Medications: Home Meds Medication Instructions Recorded Confirmed Ferrous Sulfate [Ferosul] 325 mg PO DAILY 02/21/17 12/02/17 Albuterol HFA [Ventolin HFA 90 1 puff INH PRN PRN 11/07/17 12/02/17 mcg/actuation (8 g)] Montelukast Sodium [Singulair] 10 mg PO DAILY 11/07/17 12/02/17 traMADol [Ultram] 50 mg PO BID 11/07/17 12/02/17 Calcium Carbonate [Oscal] 1 tab PO BID 12/02/17 12/02/17 Potassium Chloride [Klor-Con 1 tab PO DAILY 12/02/17 12/02/17 Sprinkle] Review of Systems - Review of Systems Constitutional: Normal. absent: Fevers Eyes: Normal ENT: Normal Respiratory: Normal. absent: SOB, Cough, Wheezing Cardiovascular: Normal. absent: Chest Pain Gastrointestinal: Normal. absent: Abdominal Pain Genitourinary Female: Normal. absent: Dysuria, Frequency, Hematuria Musculoskeletal: Normal, Other (Right knee pain). absent: Arthralgias, Joint Swelling Skin: Normal, Other. absent: Rash, Skin Lesions Neurological: Normal. absent: Headache, Dizziness Psychiatric: Anxiety <AshantiCristel tothanni - Last Filed: 02/22/18 18:39> Physical Exam Vital Signs Reviewed: Yes Temperature: Afebrile Blood Pressure: Normal Pulse: Regular Respiratory Rate: Normal Appearance: Positive for: Well-Appearing Pain Distress: Moderate Mental Status: Positive for: Alert and Oriented X 3 - Systems Exam Head: Present: Atraumatic, Normocephalic Pupils: Present: PERRL Extroacular Muscles: Present: EOMI Mouth: Present: Moist Mucous Membranes Respiratory/Chest: Present: Clear to Auscultation. No: Respiratory Distress, Accessory Muscle Use Cardiovascular: Present: Regular Rate and Rhythm, Normal S1, S2. No: Murmurs Abdomen: Present: Normal Bowel Sounds. No: Tenderness, Distention Upper Extremity: Present: Normal Inspection. No: Cyanosis, Edema Lower Extremity: Present: Normal Inspection, Tenderness (Anterior right knee tender to palpation), Other (Some old abrasions noted on both legs). No: Swelling Neurological: Present: GCS=15, CN II-XII Intact, Speech Normal Skin: Present: Warm, Dry, Rashes, Normal Color Psychiatric: Present: Alert, Oriented x 3, Normal Insight, Normal Concentration <Darnell Saini - Last Filed: 02/22/18 18:39> Vital Signs Temp Pulse Resp BP Pulse Ox 02/22/18 17:30 98.6 F 85 18 134/88 96 02/22/18 13:03 87 18 136/66 95 02/22/18 11:17 98.7 F 100 H 18 120/37 L 94 L Medical Decision Making <Cipriano Phan - Last Filed: 02/22/18 17:22> <Darnell Saini - Last Filed: 02/22/18 18:39> ED Course and Treatment: 02/22/18 12:37 Patient is a 72 year old female presenting to the Emergency department complaining of right knee pain s/p fall. In agreement with resident note which contains more details about the patient. Patient was seen and evaluated with resident. Came up with plan and treatment together. 02/22/18 16:13: Case discussed with Dr. Connell. (Cipriano Phan) 02/22/18 12:11 Impression: Patient is a 72 year old with past medical history of COPD presenting to the ED with right knee pain s/p fall. Differential Diagnoses Include But is Not Limited To: - Knee contusion - Knee fracture Plan: - Ibuprofen - Valium - Percocet - Knee Xray Progress note: 02/22/18 11:41 - On exam, patient is complaining of 10/10 right anterior knee pain and is asking for pain medications. 02/22/18 13:19 - Patient reassessed with attending. Patient is still complaining of right knee pain. Ibuprofen and valium were given. - Ordered Xray of right knee 02/22/18 14:18 - Patient said the pain resolved after being given 1 dose of percocet. 02/22/18 17:31 - Knee xray came back positive for a Y-shaped patellar fracture. Patient was discharged with a knee brace and instructed to take over the counter pain medication as needed for her pain. She was instructed to follow up with her primary care doctor and orthopedic doctor. Patient understood. Patient is medically stable for discharge. (Darnell Saini) - RAD Interpretation Radiology Orders: 02/22/18 13:18 KNEE RIGHT 2 VIEWS (AP & LAT) [RAD] Stat - Medication Orders Current Medication Orders: Discontinued Medications Diazepam (Valium) 2 mg PO ONCE ONE PRN Reason: Protocol Stop: 02/22/18 12:01 Last Admin: 02/22/18 12:29 Dose: 2 mg Ibuprofen (Motrin Tab) 600 mg PO ONCE ONE Stop: 02/22/18 12:01 Last Admin: 02/22/18 12:29 Dose: 600 mg [facility] Pain/Vitals Document 02/22/18 12:29 HI (Rec: 02/22/18 12:30 [id number] Pain Reassessment Is This A Pain ReAssessment? No Sleep Is patient sleeping during reassessment? No Presence of Pain Presence of Pain Yes Location Left, Right or Bilateral Right Pain Location Body Site Knee Re-Assess: MAR Pain/Vitals Document 02/22/18 13:29 HI (Rec: 02/22/18 13:37 [id number] Pain Reassessment Is This A Pain ReAssessment? Yes Sleep Is patient sleeping during reassessment? No Presence of Pain Presence of Pain Yes Oxycodone/Acetaminophen (Percocet 5/325 Mg Tab) 1 tab PO STAT STA Stop: 02/22/18 13:29 Last Admin: 02/22/18 13:36 Dose: 1 tab [facility] Pain Assessment Document 02/22/18 13:36 HI (Rec: 02/22/18 13:37 [id number] Pain Reassessment Is this a pain reassessment? Yes Sleep Is patient sleeping during reassessment? No Presence of Pain Presence of Pain Yes Location Left, Right or Bilateral Right Pain Location Body Site Knee Re-Assess: [facility] Pain Assessment Document 02/22/18 14:36 HI (Rec: 02/22/18 16:45 HI [id number]) Pain Reassessment Is this a pain reassessment? Yes Sleep Is patient sleeping during reassessment? Yes Oxycodone/Acetaminophen (Percocet 5/325 Mg Tab) 1 tab PO STAT STA Stop: 02/22/18 16:41 Last Admin: 02/22/18 16:48 Dose: 1 tab [facility] Pain Assessment Document 02/22/18 16:48 HI (Rec: 02/22/18 16:49 HI [id number]) Pain Reassessment Is this a pain reassessment? No Sleep Is patient sleeping during reassessment? No Presence of Pain Presence of Pain Yes Location Left, Right or Bilateral Right Pain Location Body Site Knee - PA / MONITORING MANAGER / Resident Statement MD/DO has reviewed & agrees with the documentation as recorded. MD/DO has examined the patient and agrees with the treatment plan. - Scribe Statement The provider has reviewed the documentation as recorded by the Scribe <Cipriano Phan - Last Filed: 02/22/18 17:22> <Darnell Saini - Last Filed: 02/22/18 18:39> - Scribe Statement Kenzie Somers All medical record entries made by the Scribe were at my direction and personally dictated by me. I have reviewed the chart and agree that the record accurately reflects my personal performance of the history, physical exam, medical decision making, and the department course for this patient. I have also personally directed, reviewed, and agree with the discharge instructions and disposition. (Cipriano Phan) Disposition/Present on Arrival - Disposition Have Diagnosis and Disposition been Completed?: Yes Disposition Time: 16:41 Patient Plan: Discharge <Cipriano Phan - Last Filed: 02/22/18 17:22> - Present on Arrival Any Indicators Present on Arrival: No History of DVT/PE: No History of Uncontrolled Diabetes: No Urinary Catheter: No History of Decub. Ulcer: No History Surgical Site Infection Following: None - Disposition Have Diagnosis and Disposition been Completed?: Yes <Darnell Saini - Last Filed: 02/22/18 18:39> - Disposition Diagnosis: Patellar sleeve fracture of right knee Disposition: HOME/ ROUTINE Condition: STABLE Discharge Instructions (ExitCare): Patella Fracture (DC) Additional Instructions: PLEASE FOLLOW UP WITH ORTHOPEDIC DOCTOR THIS WEEK. WEIGHT BEARING TOLERATED YOU MAY USE THE PERCOCET GIVEN TO YOU ON LAST ED ENCOUNTER Referrals: Temo Peña MD [Primary Care Provider] - Follow up with primary Prabhakar Connell MD [Staff Provider] - Follow up with primary Forms: [employer] (Bengali)
[2018-02-22 12:05] VITALS: BMI 17.4
[2018-02-22] MEDS ORDERED: Oxycodone/Acetaminophen 5/325 mg Tab PO STA ×2 (13:28→16:40)
--- NOTE | 2018-02-22 14:35 | RAD ---
Date of service: 02/22/2018 PROCEDURE: Right Knee Radiographs. HISTORY: right knee pain s/p fall COMPARISON: None. FINDINGS: BONES: There is a Y-shaped fracture in the patella on the frontal view. JOINTS: Normal. No osteoarthritis. JOINT EFFUSION: Small joint effusion OTHER FINDINGS: None. IMPRESSION: There is a Y-shaped fracture in the patella on the frontal view.
[2018-02-22 17:33] VITALS: BP 134/88; PULSE 85; TEMP 98.6; O2SAT 96
== END 2018-02-22 17:30 | disposition home or self-care (01) ==
LOC: ED 11:10
DX: S82.001A Unspecified fracture of right patella, initial encounter for closed fracture (principal); W19.XXXA Unspecified fall, initial encounter

== ENCOUNTER 2018-02-26 09:20 | Inpatient (IN) | payer MEDICARE, MEDICAID ==
[2018-02-26 09:21] VITALS: BMI 17.4
[2018-02-26] MEDS ORDERED: Sodium Chloride 0.9% 500 ML IV STA (09:57)
[2018-02-26 10:10] LABS: BASO # 0.05 K/mm3 (0.0-2.0); BASO % 0.6 % (0.0-3.0); EOS # 0.2 (0.0-0.7); EOS % 2.5 % (1.5-5.0); GRAN # 6.46 (1.4-6.5); GRAN % 79.5 % (50.0-68.0); HEMOGLOBIN 11.6 g/dL (12.0-16.0); LYMPH # 0.5 (1.2-3.4); LYMPH % 6.7 % (22.0-35.0); MEAN CELL VOLUME 100.8 fl (80.0-105.0); MEAN CORPUSCULAR HEMOGLOBIN 32.6 pg (25.0-35.0); MEAN CORPUSCULAR HGB CONC 32.3 g/dl (31.0-37.0); MEAN PLATELET VOLUME 9.7 fl (7.0-11.0); MONO # 0.9 (0.1-0.6); MONO % 10.7 % (1.0-6.0); RBC 3.56 10^6/uL (3.5-6.1); WHITE BLOOD COUNT 8.1 10^3/ul (4.5-11.0)
--- NOTE | 2018-02-26 10:19 | RAD ---
Date of service: 02/26/2018 HISTORY: inability to ambulate, knee fracture COMPARISON: 11/05/2017 FINDINGS: LUNGS: No active pulmonary disease. PLEURA: No significant pleural effusion identified, no pneumothorax apparent. CARDIOVASCULAR: Normal. OSSEOUS STRUCTURES: No significant abnormalities. VISUALIZED UPPER ABDOMEN: Normal. OTHER FINDINGS: None. IMPRESSION: No active disease.
[2018-02-26 10:21] LABS: ALB/GLOB RATIO 1.2 (1.1-1.8); ALBUMIN 4.2 g/dL (3.0-4.8); ALT/SGPT 17 U/L (7-56); AST/SGOT 20 U/L (14-36); BLOOD UREA NITROGEN 15 mg/dL (7-21); CALCIUM 9.5 mg/dL (8.4-10.5); GFR NON-AFRICAN AMERICAN > 60
--- NOTE | 2018-02-26 10:38 | ED PDOC ---
Arrival/HPI - General Chief Complaint: Lower Extremity Problem/Injury Time Seen by Provider: 02/26/18 09:25 Historian: Patient - History of Present Illness Narrative History of Present Illness (Text): 02/26/18 10:31 72yr old female presents today with inability to ambulate at home due to knee fracture. pt was diagnosed with right knee fracture on 02/22. pt states that since she has been home, she has not been able to eat or get around in the house. pt states she is having pain in the leg. pt states the tramadol is not working for the pain. pt denies numbness, weakness, tingling in the extremity. pt denies fever/chills. no cp or sob. no dizziness or weakness. Past Medical History - Provider Review Nursing Documentation Reviewed: Yes - Travel History Have you recently traveled outside [place] w/in the past 3 mons?: No - Infectious Disease Hx of Infectious Diseases: None - Cardiac Hx Cardiac Disorders: No Hx Peripheral Vascular Disease: Yes (DVT) - Pulmonary Hx Respiratory Disorders: Yes (SMOKED CIGARETTES. QUIT 01-04-17) Hx Chronic Obstructive Pulmonary Disease (COPD): Yes - Neurological Hx Neurological Disorder: Yes (SYNCOPE? 07-31-17) HX Cerebrovascular Accident: Yes - HEENT Hx HEENT Disorder: Yes (WEARS RX GLASSES) - Renal Hx Renal Disorder: No - Endocrine/Metabolic Hx Endocrine Disorders: No - Hematological/Oncological Hx Blood Disorders: No - Integumentary Hx Dermatological Disorder: No - Musculoskeletal/Rheumatological Hx Musculoskeletal Disorders: Yes (L HIP REPLACEMENT,L HIP PROSTHESIS) Hx Falls: Yes (MULTIPLE) Hx Fractures: Yes (ELBOW FX 07-31-17) Hx Unsteady Gait: Yes (CANE/WALKER) - Gastrointestinal Hx Gastrointestinal Disorders: Yes (GI BLEED) - Genitourinary/Gynecological Hx Genitourinary Disorders: No - Psychiatric Hx Psychophysiologic Disorder: No Hx Substance Use: No - Surgical History Hx Joint Replacement: Yes (left hip) Hx Orthopedic Surgery: Yes Other/Comment: Bowel obstruction - Anesthesia Hx Anesthesia Reactions: No Hx Malignant Hyperthermia: No - Suicidal Assessment Feels Threatened In Home Enviroment: No Family/Social History - Physician Review Nursing Documentation Reviewed: Yes Family/Social History: Unknown Family HX Smoking Status: Light Smoker < 10 Cigarettes Daily Hx Alcohol Use: No Hx Substance Use: No Allergies/Home Meds Allergies/Adverse Reactions: Allergies ketorolac [From Toradol] Allergy (Severe, Verified 02/26/18 09:37) ANAPHYLAXIS Home Medications: Home Meds Medication Instructions Recorded Confirmed Ferrous Sulfate [Ferosul] 325 mg PO DAILY 02/21/17 02/26/18 Albuterol HFA [Ventolin HFA 90 1 puff INH PRN PRN 11/07/17 02/26/18 mcg/actuation (8 g)] Montelukast Sodium [Singulair] 10 mg PO DAILY 11/07/17 02/26/18 traMADol [Ultram] 50 mg PO BID 11/07/17 02/26/18 Calcium Carbonate [Oscal] 1 tab PO BID 12/02/17 02/26/18 Review of Systems - Review of Systems Constitutional: absent: Fatigue, Fevers Respiratory: absent: SOB, Cough Cardiovascular: absent: Chest Pain, Palpitations Gastrointestinal: absent: Abdominal Pain, Nausea, Vomiting Musculoskeletal: Arthralgias (RIGHT KNEE PAIN) Skin: absent: Rash, Pruritis Neurological: absent: Headache, Dizziness Psychiatric: absent: Anxiety, Depression Physical Exam Vital Signs Reviewed: Yes Vital Signs Temp Pulse Resp BP Pulse Ox 02/26/18 11:14 83 18 112/56 L 95 02/26/18 09:35 97.9 F 111 H 18 92/56 L 96 Temperature: Afebrile Blood Pressure: Hypotensive Pulse: Tachycardic Respiratory Rate: Normal Appearance: Positive for: Well-Appearing, Non-Toxic, Comfortable Pain Distress: None Mental Status: Positive for: Alert and Oriented X 3 - Systems Exam Head: Present: Atraumatic Mouth: Present: Moist Mucous Membranes Neck: Present: Normal Range of Motion Respiratory/Chest: Present: Clear to Auscultation, Good Air Exchange. No: Respiratory Distress, Accessory Muscle Use Cardiovascular: Present: Regular Rate and Rhythm, Normal S1, S2. No: Murmurs Abdomen: No: Tenderness, Rebound, Guarding Upper Extremity: Present: Normal Inspection Lower Extremity: Present: Tenderness (RIGHT KNEE: + TTP AND SWELLING OVER ANTERIOR KNEE; + TTP OVER QUADRACEPS TENDON. + SWELLING. NO FLEXION OF KNEE. ), Swelling, Deformity, Capillary Refill < 2 s Neurological: Present: GCS=15, Speech Normal Skin: Present: Warm, Dry, Normal Color. No: Rashes Psychiatric: Present: Alert, Oriented x 3 Medical Decision Making ED Course and Treatment: 02/26/18 12:21 72-year-old female presents today with right knee pain and inability to ambulate status post trauma. Patient was found to have a patellar fracture on her previous ER visit. Patient is in knee immobilizer and crutches with inability to ambulate at home. Patient states she has not eaten in 2 days. CBC within normal limits CMP within normal limits Patient with inability to lift the the straight leg off of the bed, with tenderness and swelling over the quadriceps tendon raising concern for possible quadriceps tendon injury. Will order MRI. Patient given 500 mL normal saline. Vital signs are stable. Percocet given for pain. Case was discussed with Dr. correia. He would like the patient to be admitted to the hospitalist service for possible intermediate placement. Case was discussed with Dr. Amador accepts admission to [facility] with orthopedic consult Dr. Marie who is the patientS orthopedist. Impression: KNEE FRACTURE, INABILITY TO AMBULATE ADMIT TO MED/SURG - Lab Interpretations Lab Results: 02/26/18 09:50 02/26/18 09:50 Lab Results 02/26/18 09:50: WBC 8.1, RBC 3.56, Hgb 11.6 L, Hct 35.9 L, MCV 100.8 D, MCH 32.6, MCHC 32.3, RDW 15.0 H, Plt Count 393, MPV 9.7, Gran % 79.5 H, Lymph % ( Auto) 6.7 L, [place] % (Auto) 10.7 H, Eos % (Auto) 2.5, Baso % (Auto) 0.6, Gran # 6.46, Lymph # (Auto) 0.5 L, [place] # (Auto) 0.9 H, Eos # (Auto) 0.2, Baso # (Auto ) 0.05 02/26/18 09:50: Sodium 143, Potassium 4.4, Chloride 102, Carbon Dioxide 29, Anion Gap 16, BUN 15, Creatinine 0.6 L, Est GFR ( Amer) > 60, Est GFR ( Non-Af Amer) > 60, Random Glucose 158 H, Calcium 9.5, Total Bilirubin 0.5, AST 20, ALT 17, Alkaline Phosphatase 124, Total Protein 7.7, Albumin 4.2, Globulin 3.5, Albumin/Globulin Ratio 1.2 - RAD Interpretation Radiology Orders: 02/26/18 09:46 CHEST PORTABLE [RAD] Stat 02/26/18 11:07 KNEE W/O CONTRAST RIGHT [MRI] Stat - Medication Orders Current Medication Orders: Heparin Sodium (Porcine) (Heparin) 5,000 units SC Q12 ORI PRN Reason: Protocol Discontinued Medications Sodium Chloride (Sodium Chloride 0.9%) 500 mls @ 999 mls/hr IV .Q31M STA Stop: 02/26/18 10:27 Last Admin: 02/26/18 10:05 Dose: 999 mls/hr eMAR Start Stop Document 02/26/18 10:05 [facility] (Rec: 02/26/18 10:05 [facility] [id number]) Intravenous Solution Start Date 02/26/18 Start Time 10:05 End Date 02/26/18 End time 10:35 Total Infusion Time 30 Oxycodone/Acetaminophen (Percocet 5/325 Mg Tab) 1 tab PO STAT STA Stop: 02/26/18 11:20 Last Admin: 02/26/18 11:30 Dose: 1 tab MAR Pain Assessment Document 02/26/18 11:30 [facility] (Rec: 02/26/18 11:31 [facility] [id number]) Pain Reassessment Is this a pain reassessment? No Sleep Is patient sleeping during reassessment? No Presence of Pain Presence of Pain Yes Pain Scale Used Pain Scale Used Numeric Location Left, Right or Bilateral Right Pain Location Body Site Leg Description Intensity of Pain at present 8 Disposition/Present on Arrival - Present on Arrival Any Indicators Present on Arrival: No History of DVT/PE: No History of Uncontrolled Diabetes: No Urinary Catheter: No History of Decub. Ulcer: No History Surgical Site Infection Following: None - Disposition Have Diagnosis and Disposition been Completed?: Yes Diagnosis: Knee fracture, Inability to ambulate due to knee Disposition: HOSPITALIZED Disposition Time: 11:00 Patient Plan: Admission Condition: FAIR
[2018-02-26] MEDS ORDERED: Oxycodone/Acetaminophen 5/325 mg Tab PO STA (11:19)
--- NOTE | 2018-02-26 11:51 | CARD ---
APPROVED REPORT Date of service: 02/26/2018 EKG Measurement Heart [id number] <Conclusion> Normal sinus rhythm Normal ECG
--- NOTE | 2018-02-26 13:17 | MRI ---
Date of service: 02/26/2018 PROCEDURE: MRI Right Knee HISTORY: Pain. COMPARISON: Plain films 02/22/2018 TECHNIQUE: Multiecho multiplanar sequences were performed through the right knee. FINDINGS: ANTERIOR CRUCIATE LIGAMENT:: Intact. POSTERIOR CRUCIATE LIGAMENT:: Intact. MEDIAL MENISCUS:: Intact. LATERAL MENISCUS:: Intact. MEDIAL COLLATERAL LIGAMENT:: Intact. LATERAL COLLATERAL LIGAMENT COMPLEX:: Intact. QUADRICEPS TENDON:: Intact. PATELLAR TENDON:: Intact. CARTILAGE:: Intact. JOINT FLUID:: Intact. OSSEOUS STRUCTURES:: As seen on plain films there is a Y-shaped fracture of the patella with extensive marrow edema. There is no associated quadriceps or patellar tendon tear OTHER FINDINGS: None. IMPRESSION: As seen on plain films there is a Y-shaped fracture of the patella with extensive marrow edema. There is no associated quadriceps or patellar tendon tear
[2018-02-26] MEDS ORDERED: Albuterol-Ipratrop 3 mg / 0.5 (3 ml) UD IH PRN (13:57)
--- NOTE | 2018-02-26 14:08 | CP.PCM.HP ---
<Janessa Aburto - Last Filed: 02/26/18 16:15> History of Present Illness - History of Present Illness History of Present Illness: PGY-3 Hisroy and Physical for hospitalist service 72 yo female with PMH of complete right carotid occlusion, left hips surgery, right elbow fracture, former smoker, COPD presents today with inability to ambulate at home due to knee fracture. Patient states that 2 days ago she tripped when her walker got cough on a basket and landed on her knee. She came to the emergency department and was found to have y shaped patella fracture, she was told to follow up with orthopedic doctor. Patient states that for the past 2 days she has been unable to place any weight on her leg. She states that she is unable to get up or walk. She was give tramdol for the pain however is is not helping. She denies any loss of consciousness, trauma to the head, or dizziness. Patient states that she recently fractured her wrist and was in rehab for 3 weeks. Patient denies numbness, weakness, tingling in the extremity. Patient denies fever,chills, headache, chest pain, sob, cough, dizziness, weakness. Patient live alone on the first floor. PMH: complete right carotid occlusion, right elbow fracture, former smoker, COPD PSH: left hips surgery, appendectomy social history: former smoker, patient states that she quit about 1 month ago, former 1 ppd, denies alcohol use, illicit drug use family history: father firm cirrhosis of liver, mother dementia allergy: toradol- anaphylaxis PMD: Dr. Peña Present on Admission - Present on Admission Any Indicators Present on Admission: No Review of Systems - Constitutional Constitutional: Frequent Falls. absent: Chills, Fever, Headache, Lethargy, Weakness - EENT Eyes: absent: Blurred Vision, Change in Vision Nose/Mouth/Throat: absent: Nasal Congestion, Sore Throat - Cardiovascular Cardiovascular: absent: Chest Pain, Diaphoresis, Dyspnea, Leg Edema - Respiratory Respiratory: absent: Cough, Dyspnea - Gastrointestinal Gastrointestinal: absent: Abdominal Pain, Constipation, Diarrhea, Nausea, Vomiting - Genitourinary Genitourinary: absent: Change in Urinary Stream, Difficulty Urinating, Dysuria, Hematuria - Musculoskeletal Musculoskeletal: Arthralgias, Limited Range of Motion. absent: Back Pain, Muscle Weakness, Neck Pain, Numbness, Tingling - Integumentary Integumentary: absent: Rash, Skin Ulcer, Sores - Neurological Neurological: absent: Dizziness, Numbness, Headaches, Weakness - Hematologic/Lymphatic Hematologic: absent: Easy Bleeding, Easy Bruising Past Patient History - Infectious Disease Hx of Infectious Diseases: None - Past Social History Smoking Status: Light Smoker < 10 Cigarettes Daily - CARDIAC Hx Cardiac Disorders: No Hx Peripheral Vascular Disease: Yes (DVT) - PULMONARY Hx Respiratory Disorders: Yes (SMOKED CIGARETTES. QUIT 01-04-17) Hx Chronic Obstructive Pulmonary Disease (COPD): Yes - NEUROLOGICAL Hx Neurological Disorder: Yes (SYNCOPE? 07-31-17) HX Cerebrovascular Accident: Yes - HEENT Hx HEENT Problems: Yes (WEARS RX GLASSES) - RENAL Hx Chronic Kidney Disease: No - ENDOCRINE/METABOLIC Hx Endocrine Disorders: No - HEMATOLOGICAL/ONCOLOGICAL Hx Blood Disorders: No - INTEGUMENTARY Hx Dermatological Problems: No - MUSCULOSKELETAL/RHEUMATOLOGICAL Hx Musculoskeletal Disorders: Yes (L HIP REPLACEMENT,L HIP PROSTHESIS) Hx Falls: Yes (MULTIPLE) Hx Fractures: Yes (ELBOW FX 07-31-17) Hx Unsteady Gait: Yes (CANE/WALKER) - GASTROINTESTINAL Hx Gastrointestinal Disorders: Yes (GI BLEED) - GENITOURINARY/GYNECOLOGICAL Hx Genitourinary Disorders: No - PSYCHIATRIC Hx Psychophysiologic Disorder: No Hx Substance Use: No - SURGICAL HISTORY Hx Joint Replacement: Yes (left hip) Hx Orthopedic Surgery: Yes Other/Comment: Bowel obstruction - ANESTHESIA Hx Anesthesia Reactions: No Hx Malignant Hyperthermia: No Meds Allergies/Adverse Reactions: Allergies Allergy/AdvReac Type Severity Reaction Status Date / Time ketorolac [From Toradol] Allergy Severe ANAPHYLAXIS Verified 02/26/18 09:37 Physical Exam - Constitutional Appears: Well, No Acute Distress - Head Exam Head Exam: ATRAUMATIC, NORMAL INSPECTION, NORMOCEPHALIC - Eye Exam Eye Exam: EOMI, Normal appearance - ENT Exam ENT Exam: Mucous Membranes Moist - Respiratory Exam Respiratory Exam: Clear to Auscultation Bilateral, NORMAL BREATHING PATTERN. absent: Decreased Breath Sounds, Rales, Rhonchi, Wheezes, Respiratory Distress - Cardiovascular Exam Cardiovascular Exam: REGULAR RHYTHM, +S1, +S2. absent: Bradycardia, Tachycardia , Diastolic murmur, Systolic Murmur - GI/Abdominal Exam GI & Abdominal Exam: Normal Bowel Sounds, Soft. absent: Distended, Firm, Guarding, Tenderness - Extremities Exam Extremities exam: Positive for: pedal pulses present Additional comments: swelling of the right lower extremity, limited ROM due to pain, normal range of motion of left lower extremity - Back Exam Back exam: NORMAL INSPECTION - Neurological Exam Neurological exam: Alert, Oriented x3 - Psychiatric Exam Psychiatric exam: Normal Affect, Normal Mood - Skin Skin Exam: Dry, Intact, Normal Color, Warm Results - Vital Signs Recent Vital Signs: Last Vital Signs Temp 97.9 F 02/26/18 13:33 Pulse 80 02/26/18 13:33 Resp 16 02/26/18 13:33 BP 110/60 02/26/18 13:33 Pulse Ox 95 02/26/18 13:33 - Labs Result Diagrams: 02/26/18 09:50 02/26/18 09:50 Assessment & Plan - Assessment and Plan (Free Text) Assessment: 72 yo female with PMH of complete right carotid occlusion, left hips surgery, right elbow fracture, former smoker, COPD presents today with inability to ambulate at home due to patella fracture. Plan: Patella fracture - Knee xray on 02/22/18 showed Y shaped patella fracture - Knee MRI showed Y shaped fracture of the patella with marrow edema, no muscle tear - consult orthopedic - PT evaluation - lower right extremity US to rule out DVT - percocet q6 for severe pain - continue lyrica for neuropathic pain - fall precautions COPD - continue home medication of symbicort - duonebs prn - heparin for DVT ppx - pepcid for GI ppx case seen and discussed with Dr. Amador <Aretha Amador R - Last Filed: 02/27/18 15:12> Results - Vital Signs Recent Vital Signs: Last Vital Signs Temp 98.4 F 02/27/18 14:00 Pulse 74 02/27/18 14:00 Resp 18 02/27/18 14:00 BP 115/54 L 02/27/18 14:00 Pulse Ox 94 L 02/27/18 14:00 - Labs Result Diagrams: 02/27/18 09:30 02/27/18 09:30 Labs: Laboratory Results - last 24 hr 02/27/18 02/27/18 09:30 09:30 WBC 5.5 D RBC 3.04 L Hgb 9.8 L Hct 30.7 L MCV 101.0 MCH 32.2 MCHC 31.9 RDW 15.4 H Plt Count 356 MPV 9.5 Gran % 64.6 Lymph % (Auto) 22.1 [place] % (Auto) 8.8 H Eos % (Auto) 3.8 Baso % (Auto) 0.7 Gran # 3.53 Lymph # (Auto) 1.2 [place] # (Auto) 0.5 Eos # (Auto) 0.2 Baso # (Auto) 0.04 Sodium 141 Potassium 3.5 L Chloride 103 Carbon Dioxide 28 Anion Gap 14 BUN 14 Creatinine 0.6 L Est GFR ( Amer) > 60 Est GFR (Non-Af Amer) > 60 Random Glucose 173 H Calcium 8.2 L Total Bilirubin 0.3 AST 14 D ALT 15 Alkaline Phosphatase 93 Total Protein 6.1 Albumin 3.2 Globulin 3.0 Albumin/Globulin Ratio 1.1 Attending/Attestation - Attestation I have personally seen and examined this patient.: Yes I have fully participated in the care of the patient.: Yes I have reviewed all pertinent clinical information: Yes Notes (Text): Patient seen and examined by me at 1:00PM with resident 02/26/18. Case including HPI, physical exam, and assessment and plan discussed with resident. Agree with above with following additions/corrections. Patient is a 72-year-old female with past medical history significant for complete right carotid occlusion, left hip surgery, right elbow fracture, multiple falls, tobacco abuse, and COPD the presented to the emergency room with inability to ambulate secondary to right patellar fracture. Patient states that she fell approximately 2 days ago. She came into the emergency room and was found to have a right knee fracture. States that a knee brace was placed and patient was sent home. She states while at home, she was unable to ambulate. She states that she was having a lot of pain. She states that she was unable to move for 2 days. She was unable to eat anything secondary to being unable to ambulate. She came into the emergency room secondary to uncontrolled pain. She states that she was chasing her cat when her walker got stuck and she fell on wood. Patient has had multiple falls at home. Patient states that she always falls when she is chasing her cat. Patient states that her son has recommended placing her in a home previously however patient has adamantly refused. Patient denies any loss of consciousness or head trauma. No headaches or dizziness. No chest pain or shortness of breath. No lightheadedness or change in vision. No fevers or chills. No dysuria. No diarrhea or constipation. No neck pain or back pain. 12 point review of systems reviewed by me. Please see HPI. All other systems are negative. Patient is unsure of what medications she takes at home, we will follow up with patient's pharmacy Physical exam: General: Awake and alert lying in bed in no acute distress HEENT: Normocephalic atraumatic. Pupils equal reactive. No scleral icterus. Oropharynx is pink. Positive dry mucous membranes. No pharyngeal erythema or exudate appreciated. Neck is supple. Hearing grossly intact. Ears and nose externally unremarkable Cardiovascular: Normal rhythm. Normal S1, S2. No murmurs, rubs, or gallops appreciated Pulmonary: Normal respiratory effort. Decreased breath sounds. No rhonchi, rales or wheezing appreciated. Gastrointestinal: Soft, nondistended. Nontender. Positive bowel sounds all 4 quadrants, no guarding. Musculoskeletal: Decreased range of motion right lower extremity. Positive brace on right lower extremity, positive right lower extremity edema, mild erythema noted on right knee Central nervous system: AAOx3. CN2-12 grossly intact. Dermatologic: Skin warm and dry Assessment and plan: Patient is a 72-year-old female with past medical history significant for complete right carotid occlusion, left hip surgery, right elbow fracture, multiple falls, tobacco abuse, and COPD the presented to the emergency room with inability to ambulate secondary to right patellar fracture. 1. Gait instability secondary to patellar fracture. MRI of the right knee per radiologist shows a Y shaped fracture of the patella with extensive marrow edema , no associated quadriceps or patellar tendon tear. Orthopedics consulted, follow-up recommendations. Placed on fall precautions. PT eval and treat. Patient will need rehabilitation. Continue pain management. 2. Right lower extremity edema. Will check right lower extremity venous Doppler to rule out DVT. 3. COPD. Patient states that she quit smoking in December. Patient is not in acute exacerbation. Continue home Symbicort. Continue nebulizer treatments as needed. Continue home Singulair. 4. Depression. Continue home Wellbutrin 75 mg twice a day. 5. GI/DVT prophylaxis. Pepcid and heparin Case was discussed in detail with the patient regarding current diagnosis and treatment plan.
[2018-02-26] MEDS: Oxycodone/Acetaminophen 5/325 mg Tab PO PRN ×2 (15:57→20:58)
[2018-02-26] MEDS: Budesonide 0.25 mg/2 ml Inhal Susp UD IH SCH (22:25)
[2018-02-26] MEDS: Arformoterol 15 mcg/2 ml Inh Sol IH SCH (22:25)
[2018-02-27] MEDS: Oxycodone/Acetaminophen 5/325 mg Tab PO PRN ×4 (02:04→20:58)
[2018-02-27] MEDS: Arformoterol 15 mcg/2 ml Inh Sol IH SCH ×2 (07:25→19:27)
[2018-02-27] MEDS: Budesonide 0.25 mg/2 ml Inhal Susp UD IH SCH ×2 (07:32→19:27)
[2018-02-27 09:53] LABS: BASO # 0.04 K/mm3 (0.0-2.0); BASO % 0.7 % (0.0-3.0); EOS # 0.2 (0.0-0.7); EOS % 3.8 % (1.5-5.0); GRAN # 3.53 (1.4-6.5); GRAN % 64.6 % (50.0-68.0); HEMOGLOBIN 9.8 g/dL (12.0-16.0); LYMPH # 1.2 (1.2-3.4); LYMPH % 22.1 % (22.0-35.0); MEAN CORPUSCULAR HEMOGLOBIN 32.2 pg (25.0-35.0); MEAN CORPUSCULAR HGB CONC 31.9 g/dl (31.0-37.0); MEAN PLATELET VOLUME 9.5 fl (7.0-11.0); MONO # 0.5 (0.1-0.6); MONO % 8.8 % (1.0-6.0); RBC 3.04 10^6/uL (3.5-6.1); RED CELL DISTRIBUTION WIDTH 15.4 % (11.5-14.5); WHITE BLOOD COUNT 5.5 10^3/ul (4.5-11.0)
[2018-02-27 10:09] LABS: ALB/GLOB RATIO 1.1 (1.1-1.8); ALBUMIN 3.2 g/dL (3.0-4.8); ALT/SGPT 15 U/L (7-56); AST/SGOT 14 U/L (14-36); BLOOD UREA NITROGEN 14 mg/dL (7-21); CALCIUM 8.2 mg/dL (8.4-10.5); GFR NON-AFRICAN AMERICAN > 60
--- NOTE | 2018-02-27 11:25 | CON ---
Copied To: Davon Keyes DO Attending MD: Davon Keyes DO DATE: 02/27/2018 ORTHOPEDIC CONSULT The patient is in room 560, bed 2. The patient is well known to me for multiple fractures in the last three to four months. She came in to the Emergency Room a few years ago on 02/22/2018, turned out that she had a nondisplaced fracture of the right patella proven by MRI done yesterday on 02/26/2018. It is a fracture that is compatible for being treated without surgery of the right patella as the extensor retinaculum is intact and the fracture is minimally displaced and is compatible for ambulating with a walker, weightbearing to tolerance with a knee immobilizer, that can be removed while she is sleeping and washing, but this is the third fracture that I have seen her get in the last three months. First one was an elbow fracture on 08/19/2017, which was displaced olecranon fracture and she had a displaced right wrist fracture on 12/21/2017.if She lives alone , she is going to fall again, but I think that would be necessary to operate on her because that would be tremendous martini to pay for all these injuries, so it is best that she is in the environment where she is protected from falling again like a long-term placement facility, so this fracture of the patella will eventually heal and be treated and get strong without surgery. The left elbow did well despite the displaced left olecranon fracture back in 07/2017 and the right wrist fracture was reduced and is in acceptable position and healing well, that was from 12/21/2017; the olecranon was on 08/19/2017 and now a new patella fracture on the right on 02/22/2018, so give her physical therapy, ambulate with a walker in a well-fitted knee immobilizer. Hopefully, we can get her to an extended care facility for her own protection. Davon Keyes DO [facility]
--- NOTE | 2018-02-27 16:23 | CP.PCM.PN ---
<Liss Zendejas - Last Filed: 02/27/18 16:19> Subjective - Date & Time of Evaluation Date of Evaluation: 02/27/18 Time of Evaluation: 16:19 - Subjective Subjective: Liss Zendejas, PGY-1 Progress Note for Hospitalist Service Patient seen and examined at bedside this morning. No acute events overnight. Patient resting comfortably on examination in no acute distress or pain. Will need rehab for placement due to frequent falls for patient who lives by herself. No new complaints today. Objective - Vital Signs/Intake and Output Vital Signs (last 24 hours): Temp Pulse Resp BP Pulse Ox 98.4 F 74 18 115/54 L 94 L 02/27/18 14:00 02/27/18 14:00 02/27/18 14:00 02/27/18 14:00 02/27/18 14:00 Intake and Output: 02/27/18 02/27/18 06:59 18:59 Intake Total 960 Balance 960 - Medications Medications: Current Medications Albuterol/Ipratropium (Duoneb 3 Mg/0.5 Mg (3 Ml) Ud) 3 ml IH [id number] PRN PRN Reason: Shortness of Breath Arformoterol Tartrate (Brovana) 15 mcg IH [id number] [facility] Last Admin: 02/27/18 07:25 Dose: 15 mcg Budesonide (Pulmicort Respules) 0.25 mg IH [id number] [facility] Last Admin: 02/27/18 07:32 Dose: 0.25 mg Bupropion HCl (Wellbutrin) 75 mg PO BID [facility] Last Admin: 02/27/18 09:29 Dose: 75 mg Famotidine (Pepcid) 40 mg PO DAILY [facility] Last Admin: 02/27/18 09:29 Dose: 40 mg Heparin Sodium (Porcine) (Heparin) 5,000 units SC Q8 [facility] PRN Reason: Protocol Last Admin: 02/27/18 15:27 Dose: 5,000 units Montelukast Sodium (Singulair) 10 mg PO DAILY [facility] Last Admin: 02/27/18 09:30 Dose: 10 mg Oxycodone/Acetaminophen (Percocet 5/325 Mg Tab) 1 tab PO Q6H PRN PRN Reason: Pain, severe (8-10) Stop: 03/01/18 13:18 Last Admin: 02/27/18 15:27 Dose: 1 tab Pregabalin (Lyrica) 50 mg PO BID [facility] Last Admin: 02/27/18 09:29 Dose: 50 mg - Labs Labs: 02/27/18 09:30 02/27/18 09:30 - Constitutional Appears: No Acute Distress - Head Exam Head Exam: ATRAUMATIC, NORMAL INSPECTION - Eye Exam Eye Exam: EOMI Pupil Exam: PERRL - ENT Exam ENT Exam: Mucous Membranes Moist - Respiratory Exam Respiratory Exam: Clear to Ausculation Bilateral. absent: Respiratory Distress - Cardiovascular Exam Cardiovascular Exam: REGULAR RHYTHM, +S1, +S2 - GI/Abdominal Exam GI & Abdominal Exam: Normal Bowel Sounds. absent: Guarding, Rigid - Extremities Exam Additional comments: +2 pulses present B/L in upper and lower extremities. Right leg is in cast with some minimal distal leg swelling appreciated - Back Exam Back Exam: NORMAL INSPECTION - Neurological Exam Neurological Exam: Alert, Awake, Oriented x3 - Skin Skin Exam: Normal Color, Warm Assessment and Plan - Assessment and Plan (Free Text) Assessment: 72 yo female with PMH of COPD, complete right carotid occlusion, left hips surgery, right elbow fracture, and former smoker presents for management of right patellar fracture currently in cast. Patient will need rehab placement due to concern of home situation where patient lives by herself and has history of frequent falls. Plan: Acute Patella fracture -Knee xray on 02/22/18 showed Y shaped patella fracture -Knee MRI on 02/26 showed Y shaped fracture of the patella with marrow edema, no muscle tear -Lower extremity US final read pending -percocet q6 for pain -lyrica for neuropathic pain -ortho on consult, Dr. Keyes -per ortho, patient to get physical therapy, ambulate with walker in a well fitted knee immobolizer. Will need extended care facility Frequent Falls -history of frequent falls with left hip surgery, right elbow fracture and recent right knee fracture -Palliative care consulted to evaluate home situation. Will likely need rehab -PT eval -fall precautions History of COPD -brovana, budesonide, singulair for symptoms -duonebs prn Hypokalemia -potassium is 3.5 today from 4.4 yesterday -will monitor PPX with heparin and pepcid Patient seen and case discussed with Dr. Amador <Aretha Amador R - Last Filed: 02/28/18 12:44> Objective - Vital Signs/Intake and Output Vital Signs (last 24 hours): Temp Pulse Resp BP Pulse Ox 98.2 F 74 18 118/60 98 02/28/18 06:00 02/28/18 06:00 02/28/18 06:00 02/28/18 06:00 02/28/18 06:00 Intake and Output: 02/28/18 02/28/18 06:59 18:59 Intake Total 540 Balance 540 - Medications Medications: Current Medications Albuterol/Ipratropium (Duoneb 3 Mg/0.5 Mg (3 Ml) Ud) 3 ml IH [id number] PRN PRN Reason: Shortness of Breath Arformoterol Tartrate (Brovana) 15 mcg IH [id number] [facility] Last Admin: 02/28/18 07:22 Dose: 15 mcg Aspirin (Ecotrin) 81 mg PO DAILY [facility] Budesonide (Pulmicort Respules) 0.25 mg IH [id number] [facility] Last Admin: 02/28/18 07:22 Dose: 0.25 mg Bupropion HCl (Wellbutrin) 75 mg PO BID [facility] Last Admin: 02/28/18 09:30 Dose: 75 mg Famotidine (Pepcid) 40 mg PO DAILY [facility] Last Admin: 02/28/18 09:30 Dose: 40 mg Heparin Sodium (Porcine) (Heparin) 5,000 units SC Q8 [facility] PRN Reason: Protocol Last Admin: 02/28/18 05:39 Dose: 5,000 units Montelukast Sodium (Singulair) 10 mg PO DAILY [facility] Last Admin: 02/28/18 09:30 Dose: 10 mg Oxycodone/Acetaminophen (Percocet 5/325 Mg Tab) 1 tab PO Q6H PRN PRN Reason: Pain, severe (8-10) Stop: 03/01/18 13:18 Last Admin: 02/28/18 09:29 Dose: 1 tab Pregabalin (Lyrica) 50 mg PO BID [facility] Last Admin: 02/28/18 09:30 Dose: 50 mg - Labs Labs: 02/28/18 07:15 02/28/18 07:15 Attending/Attestation - Attestation I have personally seen and examined this patient.: Yes I have fully participated in the care of the patient.: Yes I have reviewed all pertinent clinical information, including history, physical exam and plan: Yes Notes (Text): Patient seen and examined by me at 10:50AM with resident 02/27/18. Case including HPI, physical exam, and assessment and plan discussed with resident. Agree with above with following additions/corrections. Patient states that she is feeling okay. Still having pain in her right knee. States she is unsure if she will be able to do physical therapy. Pain medications are helping. She denies any chest pain or shortness of breath. No nausea, vomiting, or abdominal pain. No headaches or dizziness. No lightheadedness. No fevers or chills. No dysuria. Physical exam: General: Awake and alert lying in bed in no acute distress HEENT: Normocephalic atraumatic. Pupils equal reactive. No scleral icterus. Oropharynx is pink and moist. No pharyngeal erythema or exudate appreciated. Neck is supple. Cardiovascular: Normal rhythm. Normal S1, S2. No murmurs, rubs, or gallops appreciated Pulmonary: Normal respiratory effort. Decreased breath sounds. No rhonchi, rales or wheezing appreciated. Gastrointestinal: Soft, nondistended. Nontender. Positive bowel sounds all 4 quadrants, no guarding. Musculoskeletal: Decreased range of motion right lower extremity. Positive brace on right lower extremity, positive right lower extremity edema, mild erythema noted on right knee Central nervous system: AAOx3. CN2-12 grossly intact. Dermatologic: Skin warm and dry Assessment and plan: Patient is a 72-year-old female with past medical history significant for complete right carotid occlusion, left hip surgery, right elbow fracture, multiple falls, tobacco abuse, and COPD the presented to the emergency room with inability to ambulate secondary to right patellar fracture. 1. Gait instability secondary to patellar fracture secondary to mechanical fall. Orthopedics following, recommendations appreciated. MRI of the right knee per radiologist shows a Y shaped fracture of the patella with extensive marrow edema, no associated quadriceps or patellar tendon tear. Continue with fall precautions. Pending PT eval and treat. Patient will need rehabilitation. Continue pain management. 2. History of multiple falls. Per patient, these are mechanical falls. Patient lives alone. Patient does not want to live in a [facility]. 3. Right lower extremity edema. Right lower extremity venous Doppler negative for DVT. Edema likely secondary to knee injury. 4. COPD. Patient states that she quit smoking in December. Not in acute exacerbation. Takes Symbicort at home. Continue with Pulmicort and Brovana here. Continue nebulizer treatments as needed. Continue home Singulair. 5. Depression. Continue home Wellbutrin 75 mg twice a day. 6. GI/DVT prophylaxis. Pepcid and heparin Case was discussed in detail with the patient regarding current diagnosis and treatment plan.
[2018-02-28] MEDS: Oxycodone/Acetaminophen 5/325 mg Tab PO PRN ×4 (03:26→21:34)
[2018-02-28] MEDS: Budesonide 0.25 mg/2 ml Inhal Susp UD IH SCH ×2 (07:22→19:55)
[2018-02-28] MEDS: Arformoterol 15 mcg/2 ml Inh Sol IH SCH ×2 (07:22→19:55)
[2018-02-28 07:46] LABS: BASO # 0.04 K/mm3 (0.0-2.0); BASO % 0.7 % (0.0-3.0); EOS # 0.2 (0.0-0.7); EOS % 3.4 % (1.5-5.0); GRAN # 3.52 (1.4-6.5); HEMOGLOBIN 10.8 g/dL (12.0-16.0); LYMPH # 1.1 (1.2-3.4); LYMPH % 18.8 % (22.0-35.0); MEAN CELL VOLUME 99.7 fl (80.0-105.0); MEAN PLATELET VOLUME 9.5 fl (7.0-11.0); MONO # 0.8 (0.1-0.6); MONO % 14.1 % (1.0-6.0); RBC 3.38 10^6/uL (3.5-6.1); RED CELL DISTRIBUTION WIDTH 15.4 % (11.5-14.5); WHITE BLOOD COUNT 5.6 10^3/ul (4.5-11.0)
[2018-02-28 08:00] LABS: ALB/GLOB RATIO 1.1 (1.1-1.8); ALBUMIN 3.5 g/dL (3.0-4.8); ALT/SGPT 18 U/L (7-56); AST/SGOT 15 U/L (14-36); BLOOD UREA NITROGEN 14 mg/dL (7-21); CALCIUM 8.7 mg/dL (8.4-10.5); GFR NON-AFRICAN AMERICAN > 60
--- NOTE | 2018-02-28 17:40 | CP.PCM.PN ---
<Liss Zendejas - Last Filed: 02/28/18 17:36> Subjective - Date & Time of Evaluation Date of Evaluation: 02/28/18 Time of Evaluation: 17:36 - Subjective Subjective: Liss Zendejas, PGY-1 Progress Note for Hospitalist Service Patient seen and examined at bedside this morning. No acute events overnight. Patient placement to rehab delayed due to holiday weekend. No new complaints. Objective - Vital Signs/Intake and Output Vital Signs (last 24 hours): Temp Pulse Resp BP Pulse Ox 98.5 F 79 18 122/68 96 02/28/18 14:00 02/28/18 14:00 02/28/18 14:00 02/28/18 14:00 02/28/18 14:00 Intake and Output: 02/28/18 02/28/18 06:59 18:59 Intake Total 540 Balance 540 - Medications Medications: Current Medications Albuterol/Ipratropium (Duoneb 3 Mg/0.5 Mg (3 Ml) Ud) 3 ml IH [id number] PRN PRN Reason: Shortness of Breath Arformoterol Tartrate (Brovana) 15 mcg IH [id number] [facility] Last Admin: 02/28/18 07:22 Dose: 15 mcg Aspirin (Ecotrin) 81 mg PO DAILY [facility] Budesonide (Pulmicort Respules) 0.25 mg IH [id number] [facility] Last Admin: 02/28/18 07:22 Dose: 0.25 mg Bupropion HCl (Wellbutrin) 75 mg PO BID [facility] Last Admin: 02/28/18 09:30 Dose: 75 mg Famotidine (Pepcid) 40 mg PO DAILY [facility] Last Admin: 02/28/18 09:30 Dose: 40 mg Heparin Sodium (Porcine) (Heparin) 5,000 units SC Q8 [facility] PRN Reason: Protocol Last Admin: 02/28/18 14:15 Dose: 5,000 units Montelukast Sodium (Singulair) 10 mg PO DAILY [facility] Last Admin: 02/28/18 09:30 Dose: 10 mg Oxycodone/Acetaminophen (Percocet 5/325 Mg Tab) 1 tab PO Q6H PRN PRN Reason: Pain, severe (8-10) Stop: 03/01/18 13:18 Last Admin: 02/28/18 15:48 Dose: 1 tab Pregabalin (Lyrica) 50 mg PO BID [facility] Last Admin: 02/28/18 09:30 Dose: 50 mg - Labs Labs: 02/28/18 07:15 02/28/18 07:15 - Constitutional Appears: No Acute Distress - Head Exam Head Exam: ATRAUMATIC, NORMAL INSPECTION - Eye Exam Eye Exam: EOMI Pupil Exam: PERRL - Respiratory Exam Respiratory Exam: Clear to Ausculation Bilateral. absent: Respiratory Distress - Cardiovascular Exam Cardiovascular Exam: REGULAR RHYTHM, +S1, +S2 - GI/Abdominal Exam GI & Abdominal Exam: Normal Bowel Sounds. absent: Firm, Guarding - Extremities Exam Additional comments: right leg in cast, decreased movement. Tenderness to palpation of right leg. - Neurological Exam Neurological Exam: Alert, Awake, Oriented x3 - Skin Skin Exam: Normal Color, Warm Assessment and Plan - Assessment and Plan (Free Text) Assessment: 72 yo female with PMH of COPD, complete right carotid occlusion, left hips surgery, right elbow fracture, and former smoker presents for management of right patellar fracture currently in cast. Patient will need rehab placement due to concern of home situation where patient lives by herself and has history of frequent falls. Delayed placement due to holiday weekend. Started on ASA 81mg. Plan: Acute Patella fracture -Knee xray on 02/22/18 showed Y shaped patella fracture, 2/2 to likely mechanical fall -Knee MRI on 02/26 showed Y shaped fracture of the patella with marrow edema, no muscle tear -Awaiting lower extremity US final read -percocet q6 for pain -lyrica for neuropathic pain -per ortho, patient to get physical therapy, ambulate with walker in a well fitted knee immobolizer. Will need extended care facility -ortho on consult, Dr. Keyes Frequent Falls -history of frequent falls with left hip surgery, right elbow fracture and recent right knee fracture -on examination today, right leg is in cast; no gross bleeding. -fall precautions -Palliative care consulted to evaluate home situation. Will likely need rehab due to history of frequent falls -PT eval pending History of COPD -continue brovana, budesonide, singulair -continue duonebs prn Hypokalemia -potassium is 4.3 today from 3.5 today. WNL -will monitor PPX with heparin and pepcid Patient seen and case discussed with Dr. Amador <Aretha Amador R - Last Filed: 03/01/18 11:03> Objective - Vital Signs/Intake and Output Vital Signs (last 24 hours): Temp Pulse Resp BP Pulse Ox 98.6 F 76 20 110/57 L 94 L 02/28/18 22:00 02/28/18 22:00 02/28/18 22:00 02/28/18 22:00 02/28/18 22:00 Intake and Output: 03/01/18 03/01/18 06:59 18:59 Intake Total 360 480 Balance 360 480 - Medications Medications: Current Medications Albuterol/Ipratropium (Duoneb 3 Mg/0.5 Mg (3 Ml) Ud) 3 ml IH [id number] PRN PRN Reason: Shortness of Breath Arformoterol Tartrate (Brovana) 15 mcg IH [id number] [facility] Last Admin: 03/01/18 07:13 Dose: 15 mcg Aspirin (Ecotrin) 81 mg PO DAILY [facility] Last Admin: 03/01/18 10:01 Dose: 81 mg Budesonide (Pulmicort Respules) 0.25 mg IH [id number] [facility] Last Admin: 03/01/18 07:29 Dose: 0.25 mg Bupropion HCl (Wellbutrin) 75 mg PO BID [facility] Last Admin: 03/01/18 10:01 Dose: 75 mg Famotidine (Pepcid) 40 mg PO DAILY [facility] Last Admin: 03/01/18 10:01 Dose: 40 mg Heparin Sodium (Porcine) (Heparin) 5,000 units SC Q8 [facility] PRN Reason: Protocol Last Admin: 03/01/18 05:47 Dose: Not Given Montelukast Sodium (Singulair) 10 mg PO DAILY [facility] Last Admin: 03/01/18 10:01 Dose: 10 mg Oxycodone/Acetaminophen (Percocet 5/325 Mg Tab) 1 tab PO Q6H PRN PRN Reason: Pain, severe (8-10) Stop: 03/01/18 13:18 Last Admin: 03/01/18 10:01 Dose: 1 tab Pregabalin (Lyrica) 50 mg PO BID [facility] Last Admin: 03/01/18 10:01 Dose: 50 mg - Labs Labs: 03/01/18 06:30 03/01/18 06:30 Attending/Attestation - Attestation I have personally seen and examined this patient.: Yes I have fully participated in the care of the patient.: Yes I have reviewed all pertinent clinical information, including history, physical exam and plan: Yes Notes (Text): Patient seen and examined by me at 10:20AM with resident 02/28/18. Case including HPI, physical exam, and assessment and plan discussed with resident. Agree with above with following additions/corrections. Patient states that she is feeling better today. She states the pain in her right knee has improved. She has not worked with physical therapy yet. She denies any chest pain or shortness of breath. No nausea, vomiting, or abdominal pain. No headaches or dizziness. No lightheadedness. No fevers or chills. No dysuria. Physical exam: General: Awake and alert lying in bed in no acute distress HEENT: Normocephalic atraumatic. Pupils equal reactive. No scleral icterus. Oropharynx is pink and moist. No pharyngeal erythema or exudate appreciated. Neck is supple. Cardiovascular: Normal rhythm. Normal S1, S2. No murmurs, rubs, or gallops appreciated Pulmonary: Normal respiratory effort. Decreased breath sounds. No rhonchi, rales or wheezing appreciated. Gastrointestinal: Soft, nondistended. Nontender. Positive bowel sounds all 4 quadrants, no guarding. Musculoskeletal: Decreased range of motion right lower extremity. Positive brace on right lower extremity, positive right lower extremity edema, mild erythema noted on right knee Central nervous system: AAOx3. CN2-12 grossly intact. Dermatologic: Skin warm and dry Assessment and plan: Patient is a 72-year-old female with past medical history significant for complete right carotid occlusion, left hip surgery, right elbow fracture, multiple falls, tobacco abuse, and COPD the presented to the emergency room with inability to ambulate secondary to right patellar fracture. 1. Gait instability secondary to patellar fracture secondary to mechanical fall. Pending PT eval and treat. Patient will most likely need RAKESH. Continue with pain management. Orthopedics following, recommendations appreciated. MRI of the right knee per radiologist shows a Y shaped fracture of the patella with extensive marrow edema, no associated quadriceps or patellar tendon tear. Continue with fall precautions. 2. History of multiple falls. Per patient, these are mechanical falls. Patient lives alone. Patient does not want to live in a shelter. Pending PT eval and likely RAKESH placement. 3. Right lower extremity edema. Right lower extremity venous Doppler negative for DVT. Edema likely secondary to knee injury. 4. COPD. Patient states that she quit smoking in December. Not in acute exacerbation. Takes Symbicort at home. Continue with Pulmicort and Brovana here. Continue nebulizer treatments as needed. Continue home Singulair. 5. Depression. Continue home Wellbutrin 75 mg twice a day. 6. GI/DVT prophylaxis. Pepcid and heparin Case was discussed in detail with the patient regarding current diagnosis and treatment plan.
[2018-03-01] MEDS: Oxycodone/Acetaminophen 5/325 mg Tab PO PRN ×4 (03:50→21:01)
[2018-03-01] MEDS: Arformoterol 15 mcg/2 ml Inh Sol IH SCH ×2 (07:13→19:57)
[2018-03-01 07:23] LABS: BASO # 0.04 K/mm3 (0.0-2.0); BASO % 0.7 % (0.0-3.0); EOS # 0.2 (0.0-0.7); EOS % 4.1 % (1.5-5.0); GRAN # 3.54 (1.4-6.5); HEMOGLOBIN 10.5 g/dL (12.0-16.0); LYMPH # 1.3 (1.2-3.4); LYMPH % 22.7 % (22.0-35.0); MEAN CELL VOLUME 100.3 fl (80.0-105.0); MEAN CORPUSCULAR HEMOGLOBIN 31.4 pg (25.0-35.0); MEAN CORPUSCULAR HGB CONC 31.3 g/dl (31.0-37.0); MEAN PLATELET VOLUME 9.8 fl (7.0-11.0); MONO # 0.7 (0.1-0.6); MONO % 11.5 % (1.0-6.0); RBC 3.34 10^6/uL (3.5-6.1); RED CELL DISTRIBUTION WIDTH 15.2 % (11.5-14.5); WHITE BLOOD COUNT 5.8 10^3/ul (4.5-11.0)
[2018-03-01] MEDS: Budesonide 0.25 mg/2 ml Inhal Susp UD IH SCH ×2 (07:29→19:57)
[2018-03-01 07:54] LABS: ALB/GLOB RATIO 1.1 (1.1-1.8); ALBUMIN 3.6 g/dL (3.0-4.8); ALT/SGPT 11 U/L (7-56); AST/SGOT 20 U/L (14-36); BLOOD UREA NITROGEN 16 mg/dL (7-21); CALCIUM 8.9 mg/dL (8.4-10.5); GFR NON-AFRICAN AMERICAN > 60
--- NOTE | 2018-03-01 11:24 | PN ---
Copied To: Davon Keyes DO Attending MD: Davon Keyes DO DATE: 03/01/2018 This is a 72-year-old female in room 560, bed 2. The patient feels much better. Her right knee has got hernia as mentioned before, swelling has gone down, the right knee immobilizer is helping her mobilize with a walker and this is going to take six weeks for the minimally displaced fracture to heal and she does not need any surgical intervention, but she does need a facility to go to her long-term care because she is going to fall again if she goes home and lives alone. I will follow her even if she goes to long-term care in the [facility]. Davon Keyes DO [facility] # [id number]
--- NOTE | 2018-03-01 14:42 | CP.PCM.PN ---
<Burak Rowland - Last Filed: 03/01/18 16:05> Subjective - Date & Time of Evaluation Date of Evaluation: 03/01/18 Time of Evaluation: 07:00 - Subjective Subjective: Burak Rowland, PGY1 Medicine Progress Note for Dr. Corona Patient was seen and examined at bedside this morning. Patient denied chest pain , shortness of breath, nausea, vomiting, diarrhea, numbness and tingling of extremities, fevers, chills. No overnight changes. Vital signs stable. Patient explained that she has had multiple fractures, including right wrist and right ankle. She lives alone, and occasionally her son comes to visit. However, patient says repeatedly that she refuses to be placed in [facility] or any [place] [facility] care facility. A full 12 point ROS was conducted and unremarkable except as stated above. Objective - Vital Signs/Intake and Output Vital Signs (last 24 hours): Temp Pulse Resp BP Pulse Ox 98.6 F 76 20 110/57 L 94 L 02/28/18 22:00 02/28/18 22:00 02/28/18 22:00 02/28/18 22:00 02/28/18 22:00 Intake and Output: 03/01/18 03/01/18 06:59 18:59 Intake Total 360 480 Balance 360 480 - Medications Medications: Current Medications Albuterol/Ipratropium (Duoneb 3 Mg/0.5 Mg (3 Ml) Ud) 3 ml IH [id number] PRN PRN Reason: Shortness of Breath Arformoterol Tartrate (Brovana) 15 mcg IH [id number] [facility] Last Admin: 03/01/18 07:13 Dose: 15 mcg Aspirin (Ecotrin) 81 mg PO DAILY [facility] Last Admin: 03/01/18 10:01 Dose: 81 mg Budesonide (Pulmicort Respules) 0.25 mg IH [id number] [facility] Last Admin: 03/01/18 07:29 Dose: 0.25 mg Bupropion HCl (Wellbutrin) 75 mg PO BID [facility] Last Admin: 03/01/18 10:01 Dose: 75 mg Famotidine (Pepcid) 40 mg PO DAILY [facility] Last Admin: 03/01/18 10:01 Dose: 40 mg Heparin Sodium (Porcine) (Heparin) 5,000 units SC Q8 [facility] PRN Reason: Protocol Last Admin: 03/01/18 13:59 Dose: 5,000 units Montelukast Sodium (Singulair) 10 mg PO DAILY [facility] Last Admin: 03/01/18 10:01 Dose: 10 mg Oxycodone/Acetaminophen (Percocet 5/325 Mg Tab) 1 tab PO Q6H PRN PRN Reason: Pain, moderate (4-7) Stop: 03/04/18 14:31 Pregabalin (Lyrica) 50 mg PO BID [facility] Last Admin: 03/01/18 10:01 Dose: 50 mg - Labs Labs: 03/01/18 06:30 03/01/18 06:30 - Constitutional Appears: Well, No Acute Distress - Head Exam Head Exam: ATRAUMATIC, NORMAL INSPECTION, NORMOCEPHALIC - Eye Exam Eye Exam: EOMI, Normal appearance, PERRL Pupil Exam: NORMAL ACCOMODATION, PERRL - ENT Exam ENT Exam: Mucous Membranes Moist, Normal Exam - Neck Exam Neck Exam: Full ROM, Normal Inspection. absent: Lymphadenopathy - Respiratory Exam Respiratory Exam: Clear to Ausculation Bilateral, NORMAL BREATHING PATTERN. absent: Rales, Rhonchi, Wheezes - Cardiovascular Exam Cardiovascular Exam: REGULAR RHYTHM, +S1, +S2. absent: Murmur - GI/Abdominal Exam GI & Abdominal Exam: Soft, Normal Bowel Sounds. absent: Distended, Firm, Guarding, Rigid, Tenderness - Extremities Exam Extremities Exam: Tenderness (Left lower extremity tenderness.). absent: Calf Tenderness, Full ROM (Limited ROM of the right lower extremity. Knne immobilizer in place. ), Joint Swelling, Pedal Edema - Back Exam Back Exam: NORMAL INSPECTION - Neurological Exam Neurological Exam: Alert, Awake, Oriented x3 Neuro motor strength exam: Left Upper Extremity: 5, Right Upper Extremity: 5, Left Lower Extremity: 4, Right Lower Extremity: 3 - Psychiatric Exam Psychiatric exam: Normal Affect, Normal Mood - Skin Skin Exam: Dry, Intact, Normal Color, Warm Assessment and Plan - Assessment and Plan (Free Text) Assessment: Patient is a 72 y/o F with PMHx of COPD, complete right carotid artery occlusion , left hip surgery, right elbow fracture, and former smoker presented to for management of right patellar fracture. Patient will need rehab placement due to concern of home situation where patient lives by herself and has history of frequent falls and multiple fractures. Patient is currently being monitored on the floor. Plan: Acute Patella fracture -Right Knee xray (02/22/18): Y shaped patella fracture, 2/2 to likely mechanical fall. -Right Knee MRI (02/26): Y shaped fracture of the patella with marrow edema, no muscle tear -Ortho recs: patient to get physical therapy, ambulate with walker in a well fitted knee immobolizer. Will need extended care facility. -Lower extremity US (02/26): f/u official read -c/w percocet q6 for pain control -lyrica for neuropathic pain -ortho consulted, Dr. Keyes Frequent Falls -history of frequent falls with left hip surgery, right elbow fracture and recent right knee fracture -No bleeding; R-knee is in immobilizer -fall precautions -Palliative care consulted to evaluate home situation. -PT eval pending for possible RAKESH COPD -No signs of respiratory distress -c/w brovana, budesonide, singulair -c/w duonebs prn Hypokalemia - resolved -potassium is 4.2 -continue to monitor PPX: heparin and pepcid Dispo: continue to monitor patient on floor. Follow up recommendations from PT for possible RAKESH. Case was discussed and reviewed with Attending Physician Dr. Corona. <Lamberto Corona - Last Filed: 03/02/18 07:41> Objective - Vital Signs/Intake and Output Vital Signs (last 24 hours): Temp Pulse Resp BP Pulse Ox 97.7 F 82 18 130/63 92 L 03/01/18 22:13 03/01/18 22:13 03/01/18 22:13 03/01/18 22:13 03/01/18 22:13 Intake and Output: 03/02/18 03/02/18 06:59 18:59 Intake Total 600 240 Balance 600 240 - Medications Medications: Current Medications Albuterol/Ipratropium (Duoneb 3 Mg/0.5 Mg (3 Ml) Ud) 3 ml IH [id number] PRN PRN Reason: Shortness of Breath Arformoterol Tartrate (Brovana) 15 mcg IH [id number] [facility] Last Admin: 03/02/18 07:16 Dose: 15 mcg Aspirin (Ecotrin) 81 mg PO DAILY [facility] Last Admin: 09/03/18 10:01 Dose: 81 mg Budesonide (Pulmicort Respules) 0.25 mg IH [id number] [facility] Last Admin: 03/02/18 07:16 Dose: 0.25 mg Bupropion HCl (Wellbutrin) 75 mg PO BID [facility] Last Admin: 03/01/18 17:24 Dose: 75 mg Famotidine (Pepcid) 40 mg PO DAILY [facility] Last Admin: 03/01/18 10:01 Dose: 40 mg Heparin Sodium (Porcine) (Heparin) 5,000 units SC Q8 [facility] PRN Reason: Protocol Last Admin: 03/02/18 05:27 Dose: Not Given Montelukast Sodium (Singulair) 10 mg PO DAILY [facility] Last Admin: 03/01/18 10:01 Dose: 10 mg Oxycodone/Acetaminophen (Percocet 5/325 Mg Tab) 1 tab PO Q6H PRN PRN Reason: Pain, moderate (4-7) Stop: 03/04/18 14:31 Last Admin: 03/02/18 03:07 Dose: 1 tab Pregabalin (Lyrica) 50 mg PO BID [facility] Last Admin: 03/01/18 17:24 Dose: 50 mg - Labs Labs: 03/02/18 06:20 03/01/18 06:30 Attending/Attestation - Attestation I have personally seen and examined this patient.: Yes I have fully participated in the care of the patient.: Yes I have reviewed all pertinent clinical information, including history, physical exam and plan: Yes Notes (Text): 03/02/18 07:37 Attending note; Patient seen and examined with resident. Patient is alert and awake. Denies any sinus pain, shortness of breath. Tolerating diet well. Right knee in immobilizer. Patient was evaluated by orthopedics today. Patient is a 72-year-old female with past medical history significant for complete right carotid occlusion, left hip surgery, right elbow fracture, multiple falls, tobacco abuse, and COPD the presented to the emergency room with inability to ambulate secondary to right patellar fracture. 1. Gait instability secondary to patellar fracture secondary to mechanical fall. PT evaluation pending. Orthopedic evaluation appreciated. Patient can walk with immobilizer. MRI of the right knee per radiologist shows a Y shaped fracture of the patella with extensive marrow edema, no associated quadriceps or patellar tendon tear. Continue with fall precautions. 2. History of multiple falls. Per patient, these are mechanical falls. Patient lives alone. Patient does not want to go to [facility] or rehabilitation. We will follow up with physical therapy evaluation for discharge planning. 3. Right lower extremity edema. Right lower extremity venous Doppler negative for DVT. Edema likely secondary to knee injury. 4. COPD. Patient states that she quit smoking in December. Continue with Pulmicort and Brovana here. Continue nebulizer treatments as needed. Continue home Singulair. 5. Depression. Continue home Wellbutrin 75 mg twice a day. 6. GI/DVT prophylaxis. Pepcid and heparin Case was discussed in detail with the patient regarding current diagnosis and treatment plan. 03/02/18 07:41
[2018-03-01 14:57] VITALS: RESP 18
[2018-03-02] MEDS: Oxycodone/Acetaminophen 5/325 mg Tab PO PRN ×3 (03:07→14:57)
[2018-03-02] MEDS: Budesonide 0.25 mg/2 ml Inhal Susp UD IH SCH (07:16)
[2018-03-02] MEDS: Arformoterol 15 mcg/2 ml Inh Sol IH SCH (07:16)
[2018-03-02 07:22] LABS: BASO # 0.05 K/mm3 (0.0-2.0); EOS # 0.2 (0.0-0.7); EOS % 4.4 % (1.5-5.0); GRAN # 3.15 (1.4-6.5); HEMOGLOBIN 11.4 g/dL (12.0-16.0); LYMPH # 1.3 (1.2-3.4); LYMPH % 25.1 % (22.0-35.0); MEAN CORPUSCULAR HEMOGLOBIN 32.1 pg (25.0-35.0); MEAN CORPUSCULAR HGB CONC 32.1 g/dl (31.0-37.0); MEAN PLATELET VOLUME 9.6 fl (7.0-11.0); MONO # 0.4 (0.1-0.6); MONO % 8.5 % (1.0-6.0); RBC 3.55 10^6/uL (3.5-6.1); WHITE BLOOD COUNT 5.2 10^3/ul (4.5-11.0)
[2018-03-02 07:46] LABS: ALB/GLOB RATIO 1.1 (1.1-1.8); ALBUMIN 3.8 g/dL (3.0-4.8); ALT/SGPT 17 U/L (7-56); AST/SGOT 24 U/L (14-36); BLOOD UREA NITROGEN 19 mg/dL (7-21); CALCIUM 9.3 mg/dL (8.4-10.5); GFR NON-AFRICAN AMERICAN > 60
--- NOTE | 2018-03-02 10:04 | PN ---
Copied To: Davon Keyes DO Attending MD: Davon Keyes DO DATE: 03/02/2018 LOCATION: Seen Ms. Spencer in 560, bed 2. She is much more comfortable. She has pain in her right knee. She has a soft knee immobilizer on. The wrist on the right side is also better and the left elbow is about normal range of motion. I heard [facility] is [facility], which is a good idea and she will continue to get stronger, but hopefully she could not rely on living alone. Hopefully, we could get her a place to stay with professional help because she does fall quite a bit so I will see her in TCU when she goes there for more physical therapy to get that right knee stronger and probably get rid of the brace in two weeks. Davon Keyes DO
[2018-03-02 14:00] VITALS: BP 104/60; PULSE 84; TEMP 98.6; O2SAT 100
--- NOTE | 2018-03-02 14:50 | CP.PCM.DIS ---
<KashifBurak - Last Filed: 03/02/18 14:34> Provider - Provider Date of Admission: 02/26/18 11:20 Attending physician: Lamberto Corona MD Time Spent in preparation of Discharge (in minutes): 90 Hospital Course - Lab Results Lab Results: Most Recent Lab Values WBC 5.2 10^3/ul (4.5-11.0) 03/02/18 06:20 RBC 3.55 10^6/uL (3.5-6.1) 03/02/18 06:20 Hgb 11.4 g/dL (12.0-16.0) L 03/02/18 06:20 Hct 35.5 % (36.0-48.0) L 03/02/18 06:20 MCV 100.0 fl (80.0-105.0) 03/02/18 06:20 MCH 32.1 pg (25.0-35.0) 03/02/18 06:20 MCHC 32.1 g/dl (31.0-37.0) 03/02/18 06:20 RDW 15.0 % (11.5-14.5) H 03/02/18 06:20 Plt Count 411 10^3/uL (120.0-450.0) 03/02/18 06:20 MPV 9.6 fl (7.0-11.0) 03/02/18 06:20 Gran % 61.0 % (50.0-68.0) 03/02/18 06:20 Lymph % (Auto) 25.1 % (22.0-35.0) 03/02/18 06:20 [place] % (Auto) 8.5 % (1.0-6.0) H 03/02/18 06:20 Eos % (Auto) 4.4 % (1.5-5.0) 03/02/18 06:20 Baso % (Auto) 1.0 % (0.0-3.0) 03/02/18 06:20 Gran # 3.15 (1.4-6.5) 03/02/18 06:20 Lymph # (Auto) 1.3 (1.2-3.4) 03/02/18 06:20 [place] # (Auto) 0.4 (0.1-0.6) 03/02/18 06:20 Eos # (Auto) 0.2 (0.0-0.7) 03/02/18 06:20 Baso # (Auto) 0.05 K/mm3 (0.0-2.0) 03/02/18 06:20 Sodium 143 mmol/L (132-148) 03/02/18 06:20 Potassium 4.5 mmol/L (3.6-5.0) 03/02/18 06:20 Chloride 107 mmol/L (98-107) 03/02/18 06:20 Carbon Dioxide 26 mmol/L (21-33) 03/02/18 06:20 Anion Gap 15 (10-20) 03/02/18 06:20 BUN 19 mg/dL (7-21) 03/02/18 06:20 Creatinine 0.7 mg/dl (0.7-1.2) 03/02/18 06:20 Est GFR ( Amer) > 60 03/02/18 06:20 Est GFR (Non-Af Amer) > 60 03/02/18 06:20 Random Glucose 91 mg/dL (70-110) 03/02/18 06:20 Calcium 9.3 mg/dL (8.4-10.5) 03/02/18 06:20 Total Bilirubin 0.3 mg/dL (0.2-1.3) 03/02/18 06:20 AST 24 U/L (14-36) 03/02/18 06:20 ALT 17 U/L (7-56) 03/02/18 06:20 Alkaline Phosphatase 100 U/L (38-126) 03/02/18 06:20 Total Protein 7.3 g/dL (5.8-8.3) 03/02/18 06:20 Albumin 3.8 g/dL (3.0-4.8) 03/02/18 06:20 Globulin 3.6 gm/dL 03/02/18 06:20 Albumin/Globulin Ratio 1.1 (1.1-1.8) 03/02/18 06:20 - Hospital Course Hospital Course: Hospital Admission: Patient is a 73 y/o F with PMHx of complete right carotid artery occlusion, right wrist fracture, COPD, left hip surgery who presented to ED on 02/26 with inability to ambulate at home due to recent knee fracture. Patient states that 2 days ago she tripped when her walker got caught on a basket and landed on her knee. She came to the emergency department and was found to have a Y shaped patella fracture, she was told to follow up with orthopedic physician. Patient states that for the past 2 days she has been unable to place any weight on her leg. She states that she is unable to get up or walk. She was give tramadol for the pain however it was not helping. She denied any loss of consciousness, trauma to the head, or dizziness. Patient states that she recently fractured her wrist and was in rehab for 3 weeks. She has a history of multiple falls and fractures. Patient denied fever, chills, headache, chest pain, sob, cough, dizziness, weakness, and numbness/tingling of extremities. Patient lives alone at home; occasionally her son comes to visit her. Right Knee Xray and MRI of the knee both showed Y shaped fracture of the right patella with extensive marrow edema. There is no associated quadriceps or patellar tendon tear. Extremity U/S: Right lower extremity venous Doppler negative for DVT. Orthopedics was consulted (Dr. Keyes) and recommended patient gets physical therapy and to wear a well fitted knee immobilizer. Patient was also recommended an extended care facility, however, patient was refusing such a facility. Overall, she is a patient with multiple mechanical falls and fractures. Patient has been medically stable on the floor. Upon Discharge: Patient has been cleared by Orthopedics (Dr. Keyes) for discharge to TCU. Patient will continue with knee immobilizer brace for at least 2 weeks. Ortho will follow up with the patient in TCU. At this moment, patient does not need surgical intervention for her patella fracture. Discharge Exam - Head Exam Head Exam: ATRAUMATIC, NORMAL INSPECTION, NORMOCEPHALIC - Eye Exam Eye Exam: EOMI, Normal appearance, PERRL Pupil Exam: NORMAL ACCOMODATION, PERRL - ENT Exam ENT Exam: Mucous Membranes Moist, Normal Exam - Neck Exam Neck exam: Full Rom - Respiratory Exam Respiratory Exam: Clear to PA & Lateral, NORMAL BREATHING PATTERN, UNREMARKABLE. absent: Rales, Rhonchi, Wheezes - Cardiovascular Exam Cardiovascular Exam: REGULAR RHYTHM, +S1, +S2. absent: Systolic Murmur - GI/Abdominal Exam GI & Abdominal Exam: Normal Bowel Sounds - Extremities Exam Extremities exam: tenderness (right lower extremity tenderness ), pedal pulses present Additional comments: Patient has right knee immobilizer in place s/p patella fracture. - Back Exam Back exam: NORMAL INSPECTION - Neurological Exam Neurological exam: Alert, Oriented x3 - Skin Skin Exam: Dry, Intact, Normal Color, Warm Discharge Plan - Follow Up Plan Condition: FAIR Disposition: TRANSF TO SNF Instructions: Knee Immobilizer (DC), Muscle and Bone Pain (DC), Wrist Fracture (DC), Preventing Falls, Going Up and Down Curbs or Stairs With a Walker or Crutches Additional Instructions: Discharge to TCU. Referrals: Davon Keyes DO [Staff Provider] - <Lamberto Corona - Last Filed: 03/03/18 13:32> Provider - Provider Date of Admission: 02/26/18 11:20 Attending physician: Lamberto Corona MD Hospital Course - Lab Results Lab Results: Most Recent Lab Values WBC 5.2 10^3/ul (4.5-11.0) 03/02/18 06:20 RBC 3.55 10^6/uL (3.5-6.1) 03/02/18 06:20 Hgb 11.4 g/dL (12.0-16.0) L 03/02/18 06:20 Hct 35.5 % (36.0-48.0) L 03/02/18 06:20 MCV 100.0 fl (80.0-105.0) 03/02/18 06:20 MCH 32.1 pg (25.0-35.0) 03/02/18 06:20 MCHC 32.1 g/dl (31.0-37.0) 03/02/18 06:20 RDW 15.0 % (11.5-14.5) H 03/02/18 06:20 Plt Count 411 10^3/uL (120.0-450.0) 03/02/18 06:20 MPV 9.6 fl (7.0-11.0) 03/02/18 06:20 Gran % 61.0 % (50.0-68.0) 03/02/18 06:20 Lymph % (Auto) 25.1 % (22.0-35.0) 03/02/18 06:20 [place] % (Auto) 8.5 % (1.0-6.0) H 03/02/18 06:20 Eos % (Auto) 4.4 % (1.5-5.0) 03/02/18 06:20 Baso % (Auto) 1.0 % (0.0-3.0) 03/02/18 06:20 Gran # 3.15 (1.4-6.5) 03/02/18 06:20 Lymph # (Auto) 1.3 (1.2-3.4) 03/02/18 06:20 [place] # (Auto) 0.4 (0.1-0.6) 03/02/18 06:20 Eos # (Auto) 0.2 (0.0-0.7) 03/02/18 06:20 Baso # (Auto) 0.05 K/mm3 (0.0-2.0) 03/02/18 06:20 Sodium 143 mmol/L (132-148) 03/02/18 06:20 Potassium 4.5 mmol/L (3.6-5.0) 03/02/18 06:20 Chloride 107 mmol/L (98-107) 03/02/18 06:20 Carbon Dioxide 26 mmol/L (21-33) 03/02/18 06:20 Anion Gap 15 (10-20) 03/02/18 06:20 BUN 19 mg/dL (7-21) 03/02/18 06:20 Creatinine 0.7 mg/dl (0.7-1.2) 03/02/18 06:20 Est GFR ( Amer) > 60 03/02/18 06:20 Est GFR (Non-Af Amer) > 60 03/02/18 06:20 Random Glucose 91 mg/dL (70-110) 03/02/18 06:20 Calcium 9.3 mg/dL (8.4-10.5) 03/02/18 06:20 Total Bilirubin 0.3 mg/dL (0.2-1.3) 03/02/18 06:20 AST 24 U/L (14-36) 03/02/18 06:20 ALT 17 U/L (7-56) 03/02/18 06:20 Alkaline Phosphatase 100 U/L (38-126) 03/02/18 06:20 Total Protein 7.3 g/dL (5.8-8.3) 03/02/18 06:20 Albumin 3.8 g/dL (3.0-4.8) 03/02/18 06:20 Globulin 3.6 gm/dL 03/02/18 06:20 Albumin/Globulin Ratio 1.1 (1.1-1.8) 03/02/18 06:20 Attending/Attestation - Attestation I have personally seen and examined this patient.: Yes I have fully participated in the care of the patient.: Yes I have reviewed all pertinent clinical information, including history, physical exam and plan: Yes Notes (Text): 03/03/18 13:30 Attending note; Patient seen and examined with resident. Patient is alert and awake. Denies any pain, shortness of breath. Tolerating diet well. Right knee in immobilizer. Patient was evaluated by orthopedics today. Patient is a 72-year-old female with past medical history significant for complete right carotid occlusion, left hip surgery, right elbow fracture, multiple falls, tobacco abuse, and COPD the presented to the emergency room with inability to ambulate secondary to right patellar fracture. 1. Gait instability secondary to patellar fracture secondary to mechanical fall. PT evaluation appreciated. TCU recommended. Orthopedic evaluation appreciated. Patient can walk with immobilizer. 2. History of multiple falls. Per patient, these are mechanical falls. Patient lives alone. Patient does not want to go to skilled nursing or rehabilitation. Transfer to TCU today. 3. Right lower extremity edema. Right lower extremity venous Doppler negative for DVT. Edema likely secondary to knee injury. 4. COPD. stable. Continue nebulizer treatments as needed. Continue home Singulair. 5. Depression. Continue home Wellbutrin 75 mg twice a day. 6. GI/DVT prophylaxis. Pepcid and heparin Case was discussed in detail with the patient regarding current diagnosis and treatment plan.
--- NOTE | 2018-03-02 15:08 | US ---
PROCEDURE: Right lower extremity venous US HISTORY: Leg pain and swelling. Evaluate for DVT. PHYSICIAN(S): Saman Murillo M.D. TECHNIQUE: Duplex sonography and color-flow Doppler with graded compression were used to evaluate the deep venous system of the right lower extremity. FINDINGS: The visualized deep venous system of the right lower extremity is sonographically normal and compressible. Normal waveforms and augmentation are seen. There is no sonographic evidence for deep venous thrombosis in the visualized segments of the right lower extremity. IMPRESSION: 1. No sonographic evidence for deep venous thrombosis in the visualized segments of the right lower extremity.
== END 2018-03-02 15:23 | DRG 563 ==
LOC: ED 09:20 → ERH 11:20 → 5RNO 14:02
PROVIDERS: ADMIT Hospitalist; ATTEND Internal Medicine
DX: S82.001A Unspecified fracture of right patella, initial encounter for closed fracture (principal); E87.6 Hypokalemia; F32.9 Major depressive disorder, single episode, unspecified; J44.9 Chronic obstructive pulmonary disease, unspecified; R29.6 Repeated falls; R26.81 Unsteadiness on feet; I65.21 Occlusion and stenosis of right carotid artery; Z96.642 Presence of left artificial hip joint; W01.0XXA Fall on same level from slipping, tripping and stumbling without subsequent striking against object, initial encounter; Y92.009 Unspecified place in unspecified non-institutional (private) residence as the place of occurrence of the external cause; Z86.718 Personal history of other venous thrombosis and embolism; Z79.82 Long term (current) use of aspirin; S52.022D Displaced fracture of olecranon process without intraarticular extension of left ulna, subsequent encounter for closed fracture with routine healing; S62.101D Fracture of unspecified carpal bone, right wrist, subsequent encounter for fracture with routine healing; Z86.73 Personal history of transient ischemic attack (TIA), and cerebral infarction without residual deficits; Z87.891 Personal history of nicotine dependence